=== PATIENT | male | born 1955 | race Caucasian/White ===

== ENCOUNTER → 2018-05-24 08:05 | Outpatient (CLI) | payer BC, SELFPAY | PROVIDERS: PCP Family Medicine; Visit Provider Emergency Medicine | DX: R07.89 Other chest pain (principal) | CPT/HCPCS: 93017 ==

== ENCOUNTER 2018-05-31 08:56 | Day surgery (SDC) | payer BC, SELFPAY ==
[2018-05-31] VITALS (13 sets, daily range): BP systolic 116–168; BP diastolic 69–91; PULSE 58–79; RESP 16–18; TEMP 36.5; O2SAT 92–94; BMI 23.0; BMI 66.0
--- NOTE | 2018-05-31 07:10 | IR_ITS ---
CARDIAC CATHETERIZATION DATE OF CATHETERIZATION:05/31/2018 11:47 AM PROCEDURES: 1. Left heart catheterization 2. Left ventriculogram 3. Selective coronary angiogram INDICATION FOR TEST: 1. Angina pectoris 2. Coronary artery disease 3. Abnormal stress test Informed consent was obtained prior to the procedure. COMPLICATIONS: None ESTIMATED BLOOD LOSS: Less than 10 ml. TECHNIQUE: One percent lidocaine used to anesthetize the right anterior aspect of the wrist. The right radial artery was accessed via the Seldinger technique. A 6 Vietnamese sheath was placed in the right radial artery. 2.5 mg of verapamil, 800 mcg of nitroglycerin, 1mg Lidocaine and 5000 U Heparin were given through the arterial sheath. The trap catheter was also used to perform left heart catheterization, left ventriculogram and selective coronary angiogram. At the end of the procedure the sheath was removed good hemostasis was achieved using Traclet band, patient was transferred to the postop holding area in stable condition . ANGIOGRAPHIC RESULTS: 1. The left main artery normal 2. The left anterior descending artery has a proximal concentric 70-80% stenosis which involves a moderate sized first diagonal artery with an ostial 80-90% stenosis in the first diagonal artery. The remaining LAD is normal 3. The circumflex artery is nondominant with mild luminal irregularities 4. The right coronary artery is a large dominant vessel and has proximal 10% stenoses with mid vessel mild to moderate vascular ectatic lesions and distal mild vascular ectasia. No stenosis within the right coronary artery is greater than 10% 5. The ROSEN ventriculogram reveals normal 65% 6. The left ventricular end-diastolic pressure 10 mmHg IMPRESSION: 1. Severe proximal LAD disease involving a moderate sized first diagonal artery 2. Mild to moderate vascular ectasia involving the dominant right coronary artery which is clinically insignificant 3. Normal ejection fraction 4. Normal left ventricular end-diastolic pressure PLAN: 1. Continue medical management beta blockers margarita inhibitors high intensity statin plus aspirin therapy 2. I recommend patient be evaluated for bypass surgery specifically CASTRO graft to the diagonal artery and the LAD. I believe this will give the patient the longest and best satisfaction and alleviation from angina pectoris. Although the vessel could be stented I would still recommend bypass surgery and less patient refuses bypass surgery and at that time we can discuss a bifurcating stent 3. Risk factor modification
[2018-05-31 09:34] LABS: Basophils % 0.8 % (0.1-2.0); Eosinophils % 0.9 % (0.1-12.0); Hematocrit 41.1 % (42.0-52.0); Hemoglobin 15.1 g/dL (14.1-18.0); Lymphocytes # 0.9 K/mm3 (0.7-4.5); Lymphocytes % 19.7 % (10-50); Mean Corpuscular HGB Conc 36.8 g/dL (31.8-35.4); Mean Corpuscular Hemoglobin 33.1 pg (27.0-31.2); Mean Platelet Volume 7.5 fl (7.4-10.4); Monocytes # 0.3 K/mm3 (0.1-1.0); Monocytes % 6.2 % (1.7-9.3); Neutrophils # 3.2 K/mm3 (1.8-7.8); Neutrophils % 72.4 % (37.0-80.0); Platelet Count 153 K/mm3 (142-424); Red Blood Count 4.56 M/mm3 (4.60-6.20); Red Cell Distribution Width 13.1 % (11.5-17.5); White Blood Count 4.4 K/mm3 (4.8-10.8)
[2018-05-31 09:45] LABS: Anion Gap 14.2 mEq/L (5-15); Blood Urea Nitrogen 14 mg/dL (7-18); Calcium 8.8 mg/dL (8.5-10.1); Carbon Dioxide 26 mmol/L (21.0-32.0); Chloride 105 mmol/L (98-107); Creatinine Clearance Estimated 93 mL/min (50-200); Creatinine,Serum 0.95 mg/dL (0.70-1.30); Estimated Glomerular Filt Rate 81 ml/min (>60); GFR (African American) 98 ML/MIN (>60); Glucose 126 mg/dL (74-106); Potassium 4.2 mmoL/L (3.5-5.1); Sodium 141 mmol/L (136-145)
== END 2018-05-31 14:39 | disposition home or self-care (01) ==
PROVIDERS: PCP Family Medicine; Visit Provider Internal Medicine
DX: R94.39 Abnormal result of other cardiovascular function study (principal); I25.118 Atherosclerotic heart disease of native coronary artery with other forms of angina pectoris; I10 Essential (primary) hypertension; Z79.899 Other long term (current) drug therapy; Z82.49 Family history of ischemic heart disease and other diseases of the circulatory system
CPT/HCPCS: 80048; 85025; 93458; 99152; C1725; C1760; C1769; J1644; Q9967

== ENCOUNTER → 2018-07-03 10:00 | Outpatient (CLI) | payer BC, SELFPAY | PROVIDERS: PCP Family Medicine; Visit Provider Emergency Medicine | DX: G47.33 Obstructive sleep apnea (adult) (pediatric) (principal) | CPT/HCPCS: 95806 ==

== ENCOUNTER → 2018-10-01 14:08 | Outpatient (CLI) | payer BC, SELFPAY ==
--- NOTE | 2018-10-01 14:12 | XR_ITS ---
PROCEDURE: XR MULTIPLE SPINE 6+V CLINICAL INDICATION: MANOLO ARM PAIN Neck pain, thoracic pain, bilateral arm pain COMPARISON: No exams were available for comparison FINDINGS: C-spine: Degenerate disc disease C5-C6 and C6-C7 with normal alignment. Facet arthritic changes C5, C6, and C7. Foraminal narrowing is present on the right at C6-C7 and on the left at C5-C6. Thoracic spine: Normal alignment. Mild degenerative changes mid lower thoracic spine. No fracture or dislocation. No lytic or blastic changes of the spine. IMPRESSION: Cervical and thoracic spondylosis as detailed above Dictated by: Froilan Panda MD 10/01/2018 15:03 Signed by: <Electronically signed by Froilan Panda MD in [place]> 10/01/2018 15:03
== END ==
PROVIDERS: PCP Family Medicine; Visit Provider Family Medicine
DX: M79.602 Pain in left arm (principal); M79.601 Pain in right arm
CPT/HCPCS: 72084

== ENCOUNTER → 2018-10-08 07:22 | Outpatient (CLI) | payer BC, SELFPAY ==
--- NOTE | 2018-10-08 | CA_ITS ---
APPROVED REPORT Exam: Exercise Treadmill Technologist: Erin Downey, Ht: 6 ft 1 in Wt: 221 lbs BSA: 2.24 m2 HR: 48 bpm BP: 157/88 mmHg Rhythm: Bradycardia Indications: Shortness of Breath Medical History Medications: Lisinopril,,,,, Aspirin,,,,, Metoprolol,,,,, Vitamins,,,,, Lipitor,,,,, Stress Test Details Test: Ovidio HR Resting HR: 53 bpm Max Heart Rate (APMHR): 159 bpm Max HR Achieved: 134 bpm Target HR (85% APMHR): 135 bpm % of APMHR: 84 Recovery HR: 73 bpm BP Resting BP: 157/88 mmHg Max BP: 196/87 mmHg Recovery BP: 157.0/82.0 mmHg ECG Clinical Exercise duration: 10:13 min Highest Stage Achieved: Exercise capacity: 12.8 METs Stress ECG Conclusion Ovidio Protocol completed. Exercised: 10:13 Mets: 12.8 Stopped due to leg fatigue and shortness of breath. Symptoms: No chest pain. Positive for leg fatigue and shortness of breath at peak exercise. Respolved in recovery. Arrhythmias/Ectopy: Occasional PVC. One Couplet at peak exercise. ST-T Changes: Greater than 1.5mm ST Depression Conclusion: Images to follow. Test Summary RECOVERY 03:00 0.0 0.0 78 . 180/ 94 . . Stage 1 01:00 10.0 1.7 84 . . . . Stage 1 02:00 10.0 1.7 87 . . . . Stage 1 03:00 10.0 1.7 87 . 150/ 86 . . Stage 2 01:00 12.0 2.5 97 . . . . Stage 2 02:00 12.0 2.5 101 . . . . Stage 2 03:00 12.0 2.5 103 . 160/ 90 . . Stage 3 01:00 14.0 3.4 110 . . . . Stage 3 02:00 14.0 3.4 116 . . . . Stage 3 03:00 14.0 3.4 120 . . . . Stage 4 01:00 16.0 4.2 129 . . . . Stage 4 01:13 16.0 4.2 132 . . . Stop exercise at 10:13 RECOVERY 01:00 0.0 0.0 116 . 180/ 94 . . RECOVERY 02:00 0.0 0.0 91 . 180/ 94 . . RECOVERY 03:00 0.0 0.0 78 . 180/ 94 . . RECOVERY 04:00 0.0 0.0 73 . 196/ 87 . . RECOVERY 05:00 0.0 0.0 71 . 167/ 84 . . RECOVERY 06:00 0.0 0.0 70 . 167/ 84 . . RECOVERY 06:51 0.0 0.0 74 . 157/ 82 . . Electronically signed by : Jacob Mathew, 10/10/2018 11:40:25
--- NOTE | 2018-10-08 07:24 | NM_ITS ---
APPROVED REPORT Exam: Nuclear Stress Test Indication: Chest pain, SOB, CAD, CABG, HTN, Family hx Patient Location: Outpatient Stress Tech: Erin Downey [place] Tech:Natalie Lacey, ARRT, RT (R)(N) Ht: 6 ft 1 in Wt: 224 lbs BSA: 2.26 m2 HR: 48 bpm BP: 157/88 mmHg BMI: 29.5 History: Chest pain, SOB, CAD, CABG, HTN, Family hx Procedure: Patient exercised on Ovidio protocol 10 minutes and sec, resting heart rate 48 bpm, resting blood pressure 157/88 mmHg, with exercise maximum heart rate achived was 134 bpm which is 84 % of the maximum predicted heart rate and blood pressure was 196/87. bpm. Test was stopped due to leg fatigue and SOB. Patient denied any complaint of chest pain. Patient has Good exercise capacity, achieved 12.8 METs of workload on treadmill, the blood pressure response to exercise was Adequate.. Electrocardiogram Resting electrocardiogram showed sinus rhythm, with exercise there is frequent premature ventricular complex observed, [address] segment depression noted from the baseline EKG. The EKG portion of the exercise Myoview is positive for ischemia. Patient did not achieve the target heart rate. Cardiac Stress and Resting SPECT Images: Cardiac Stress and Resting SPECT images were obtained using technetium 99m Myoview 32 mCi stress and 10 mCi at rest. Gated SPECT with analysis of segmental wall motion and calculation of the ejection fraction also done. Cardiac stress and resting SPECT images showed reversible ischemia involving the anterolateral ,lateral and inferior lateral wall. Computer derived ejection fraction is 62% with no regional wall motion abnormality, right ventricle is normal size and contractility. Conclusion: 1. The EKG portion of the exercise Myoview is positive for ischemia, patient has good exercise capacity achieved 12.8 mets of workload on treadmill, the blood pressure response to exercise was adequate, there was no exercise-induced chest discomfort. Test was stopped due to shortness of breath. 2. Scintigraphic evidence of reversible ischemia involving the anterolateral, lateral and inferior lateral wall. Computer derived ejection fraction is 62% with no regional wall motion abnormality, right ventricle is normal size and contractility. 3. Abnormal exercise Myoview study. Electronically signed by : Emmanuel Moon, 10/18/2018 17:10:58
--- NOTE | 2018-10-08 07:32 | HMH.ITSHM ---
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 []LISINOPRIL METOPROLOL LIPITOR ASA VITAMINS
== END ==
PROVIDERS: PCP Family Medicine; Visit Provider Nurse Practitioner Family
DX: Z95.1 Presence of aortocoronary bypass graft (principal); E78.5 Hyperlipidemia, unspecified; I11.9 Hypertensive heart disease without heart failure; I20.9 Angina pectoris, unspecified
CPT/HCPCS: 78452; 93017; 93306; A9502

== ENCOUNTER → 2019-02-22 13:19 | Outpatient (CLI) | payer BC, SELFPAY ==
--- NOTE | 2019-02-22 13:21 | CA_ITS ---
APPROVED REPORT Information And Data Architect Analyst: ROSS Laterality: Bilateral Indications: arm numbness Doppler Spectral Velocity Analysis ECA (R) 120.00/16.30 cm/s ECA (L) 100.20/16.30 cm/s dICA (R) 63.60/23.90 cm/s dICA (L) 75.10/31.50 cm/s Ceci (R) 70.30/30.70 cm/s Ceci (L) 69.30/27.60 cm/s pICA (R) 75.60/23.90 cm/s pICA (L) 55.10/18.20 cm/s dCCA (R) 89.00/17.20 cm/s dCCA (L) 85.70/23.10 cm/s pCCA (R) 98.80/15.70 cm/s pCCA (L) 132.90/31.80 cm/s Vert (R) 37.70/16.30 cm/s Vert (L) 58.30/19.70 cm/s ICA/CCA 0.85 ICA/CCA 0.88 Findings Duplex evaluation demonstrates stenosis of the right proximal internal carotid artery <20% with PSV <140 cm/sec, EDV <100 cm/sec, and IC/CC Ratio <4.0.Duplex evaluation demonstrates stenosis of the left proximal internal carotid artery <20% with PSV <140 cm/sec, EDV <100 cm/sec, and IC/CC Ratio <4.0. Conclusion No increased velocities to suggest hemodynamically significant stenosis in either internal carotid artery. Electronically signed by : Froilan Panda MD 02/22/2019 15:44:44
== END ==
PROVIDERS: PCP Family Medicine; Visit Provider Urology
DX: R20.0 Anesthesia of skin (principal); E78.5 Hyperlipidemia, unspecified; I11.9 Hypertensive heart disease without heart failure; I25.10 Atherosclerotic heart disease of native coronary artery without angina pectoris
CPT/HCPCS: 93880

== ENCOUNTER → 2019-08-06 08:06 | Outpatient (CLI) | payer BC, SELFPAY ==
--- NOTE | 2019-08-06 08:11 | FL_ITS ---
PROCEDURE: FL UPPER GI W AIR CLINICAL INDICATION: GERD W/O ESOPHAGITIS COMPARISON: No exams were available for comparison TECHNIQUE: In the upright position the patient was observed to swallow barium in both the AP and lateral view. The cervical esophagus was examined under fluoroscopy with images obtained. The patient was then placed prone in the right anterior oblique position and was observed to swallow barium with Valsalva technique. Routine fluoroscopy of the stomach was performed. FLUOROSCOPY TIME: 1.3 minutes FINDINGS: There is no hiatal hernia or reflux.. There was normal peristalsis. No filling defects or mucosal abnormalities. No masses or strictures. IMPRESSION: Negative barium swallow and upper GI. Dictated by: Livan Tello 08/06/2019 10:17 Electronically signed by Livan Tello in [place] 08/06/2019 10:17
--- NOTE | 2019-08-06 08:11 | US_ITS ---
PROCEDURE: US ABDOMEN LIMITED CLINICAL INDICATION: GERD W/O ESOPHAGITIS COMPARISON: No exams were available for comparison FINDINGS: PANCREAS: Unremarkable. No obvious mass or abnormal fluid collection. No ductal dilatation LIVER: Slightly increased overall echogenicity suggesting mild diffuse fatty infiltration. There are no focal lesions. The portal vein is normal in caliber and there is appropriate directional flow within the portal vein. RIGHT KIDNEY: The right kidney measures 11.5 x 5.7 by 8.7 cm and appears sonographically normal. GALLBLADDER: The gallbladder is normal in size and contains a large amount of echogenic biliary sludge along with tiny calcified and or partially calcified gallstones. The gallbladder wall is normal thickness. The common bile duct is normal in caliber. IMPRESSION: Large amount of biliary sludge and numerous tiny calcified gallstones along with mild or borderline hepatic steatosis Dictated by: Dr. Radu Rice MD 08/06/2019 09:[address] Radu Rice MD in [place] 08/06/2019 09:48
== END ==
PROVIDERS: PCP Family Medicine; Visit Provider Family Medicine
DX: K21.9 Gastro-esophageal reflux disease without esophagitis (principal)
CPT/HCPCS: 74246; 76705

== ENCOUNTER → 2019-08-29 08:01 | Outpatient (CLI) | payer BC, SELFPAY ==
[2019-08-29 08:31] LABS: Basophils % 0.5 % (0.1-2.0); Eosinophils # 0.1 K/mm3 (0.0-0.4); Eosinophils % 2.1 % (0.1-12.0); Hematocrit 41.6 % (42.0-52.0); Hemoglobin 14.5 g/dL (14.1-18.0); Lymphocytes # 1.1 K/mm3 (0.7-4.5); Lymphocytes % 19.6 % (10-50); Mean Corpuscular HGB Conc 34.8 g/dL (31.8-35.4); Mean Corpuscular Hemoglobin 33.8 pg (27.0-31.2); Mean Corpuscular Volume 97.1 fl (80-94); Mean Platelet Volume 7.9 fl (7.4-10.4); Monocytes # 0.4 K/mm3 (0.1-1.0); Monocytes % 7.8 % (1.7-9.3); Neutrophils # 3.8 K/mm3 (1.8-7.8); Neutrophils % 69.9 % (37.0-80.0); Platelet Count 143 K/mm3 (142-424); Red Blood Count 4.28 M/mm3 (4.60-6.20); Red Cell Distribution Width 13.5 % (11.5-17.5); White Blood Count 5.4 K/mm3 (4.8-10.8)
[2019-08-29 08:51] LABS: Alanine Aminotransferase 36 U/L (12-78); Albumin Level 4.2 g/dl (3.5-5.0); Albumin/Globulin Ratio 1.9 (1.1-1.8); Alkaline Phosphatase 99 U/L (38-126); Anion Gap 11.1 mEq/L (5-15); Aspartate Amino Transferase 33 U/L (17-59); Bilirubin,Total 1.1 mg/dl (0.2-1.3); Blood Urea Nitrogen 23 mg/dl (9-20); Calcium 9.1 mg/dl (8.4-10.2); Carbon Dioxide 28 mmol/L (22.0-30.0); Chloride 103 mmol/L (98-107); Estimated Glomerular Filt Rate 86 ml/min (>60); GFR (African American) 104 ML/MIN (>60); Globulin 2.2 g/dL (1.3-3.2); Glucose 110 mg/dl (74-100); Potassium 4.1 mmoL/L (3.5-5.1); Sodium 138 mmol/L (136-145); Total Protein,Serum 6.4 g/dl (6.3-8.2)
[2019-08-29 09:23] LABS: Coronavirus 19 IgG Antibody Negative (Negative); Coronavirus 19 IgM Antibody Negative (Negative)
== END ==
PROVIDERS: Visit Provider Surgery
DX: Z01.818 Encounter for other preprocedural examination (principal); R10.11 Right upper quadrant pain
CPT/HCPCS: 36415; 80053; 85025; 86328

== ENCOUNTER 2019-08-30 06:08 | Day surgery (SDC) | payer BC, SELFPAY ==
[2019-08-30] VITALS (13 sets, daily range): BP systolic 108–147; BP diastolic 60–78; PULSE 52–69; RESP 18–20; TEMP 36.2–36.7; O2SAT 92–100; BMI 29.2
--- NOTE | 2019-08-30 07:05 | P.PN_ITS ---
[facility] Anesthesia Checklist - Patient Identification Patient Identification: Arm Band, Verbal (Name & ) - Structural Data Admitted From: Home Planned Operative Procedure/s: choly Consent for Planned Operative Procedure(s) Verified: Yes Verified Documents: History and Physical - NPO Status Verified Time NPO: 00:00 - Chart Verification Results Verified: CBC, BMP - Additional verifications Patient : No Anesthesia Reactions: No Hx Blood Transfusions: No Blood Transfusion Reaction: No Cephalosporin Allergy: No Previous Colonoscopy: No - Cardiovascular Assessment Heart Sounds: S1 & S2 Pulse Strength: Baseline Pulse Rhythm: Regular Peripheral Edema: No - Airway Assessment C-Spine Mobility Assessed: Yes TMJ Mobility Assessed: Yes Dentition: Good Dentition - Neurological Assessment Level of Consciousness: Awake, Alert, Appropriate Hx Seizures: No Numbness or tingling in extremities: No - Anesthesia Plan Anesthesia Risk discussed: Yes Anesthesia Plan: Verified ASA Class: III Anesthesia Type: General [facility] History I have reviewed the patient's past medical history: Yes Medical History: Reports:: Coronary Artery Disease, Hyperlipidemia, Hypertension, Kidney Stones Denies:: Cancer, Diabetes Mellitus Type 1, Diabetes Mellitus Type 2, Internal Pacemaker, MRSA, Seizures *Have you ever received a pneumonia vaccine?: No *Have you received a flu vaccine this season?: No Other Medical History: Denies: Blood Transfusion Reaction Anesthesia experience/problems:: none Other Surgeries: Yes: CABG, Colonoscopy, Hernia Repair. No: Pacemaker Amputation: No Fractures: No - *Social History Last grade of school completed: High school graduate Smoking Status: Never smoker Tobacco Type: smokeless tobacco Alcohol Intake: never Substance Use Type: denies use *Occupational Status:: employed Housing: house Household Members: spouse *Travel in the last 8 weeks: None Family Hx:: Coronary Artery Disease, Hypertension
--- NOTE | 2019-08-30 08:20 | ECG_ITS ---
APPROVED REPORT Exam: Resting ECG HR:66 bpm ECG Measurements Heart Rate 66 AXES IA 214 P 18 QRSd 90 QRS 75 QT 410 T 22 QTc 429 <Conclusion> Sinus rhythm with 1st degree AV block Possible Inferior infarct, age undetermined Cannot rule out Anterior infarct, age undetermined Abnormal ECG Electronically signed by : Wilfredo Paulino, 08/30/2019 17:01:09
--- NOTE | 2019-08-30 08:22 | HMH.OPNOTE ---
Date of procedure: 08/30/19 Pre-op Diagnosis:: Symptomatic cholelithiasis Post-op Diagnosis:: Chronic calculus cholecystitis Procedure performed:: Laparoscopic cholecystectomy Surgeon:: Luis Patton MD FLEET OPERATIONS MANAGER:: Wilfredo Noble Anesthesia: GETA Estimated blood loss (mL): 15 Operative findings:: Mild to moderate distention Mild to moderate pericholecystic fat stranding Infundibular thickening Operative note:: After informed consent was obtained, the patient was taken to the operating room and placed in the supine position. General anesthesia was induced and the abdomen was prepped and draped in a sterile fashion. After infiltration with local anesthetic an infraumbilical incision was made. A Veress needle was placed in position. The abdomen was insufflated. A 5 mm optical trocar was placed in position. Under direct visualization, a 12 mm trocar was placed in the subxiphoid position and 2 additional 5 mm trocars were placed in the right upper quadrant. The gallbladder was elevated up and over the liver margin. The tissue around the cystic duct was carefully dissected. 3 clips were placed proximally and the duct was transected with harmonic mateo. Harmonic mateo were then utilized to dissect the gallbladder away from the liver margin with careful attention to the control of the cystic artery. The gallbladder was placed in a retrieval bag and removed through the subxiphoid trocar site. The right upper quadrant was thoroughly irrigated. No active bleeding or bile leak was noted. Fascia at the subxiphoid trocar site was reapproximated utilizing 0 Ethibond. The remaining trocars were removed. All wounds were irrigated and skin was closed with 4-0 Monocryl in a simple interrupted fashion (to facilitate hemostasis). Steri-Strips were applied. The patient's anesthetic agents were reversed and extubation was completed prior to transfer to recovery in stable condition. Condition: stable Disposition: PACU Specimens:: Gallbladder and contents Complications:: No immediate
--- NOTE | 2019-08-30 08:36 | HMH.ANESI ---
[facility] Anesthesia Record Part I Intake, IV Amount: 750 Estimated blood loss (mL): 10 Urine output (mL): 0 Blood Products used (#): none Blood Pressure: 114/71 SaO2: 93 Pulse Rate: 69 Respiratory Rate: 20 Temperature: 98.0 F Patient is:: Awake, Stable Stable to PACU at:: 08:33
--- NOTE | 2019-08-30 08:58 | SUR.PHASEI ---
0833- received into Pacu- placed on monitor. report from Cornelio westfall and Wade LUCIA. 0838- Resp at bedside- 12 lead EKG obtained per ranes order. 0845- Dr Patton at bedside talking with pt. Pt has pain #1 (1-10) scale. Pt has 5 Telfa/tegaderm dsg to abd with tonsil sponge on all. All CDI.
--- NOTE | 2019-08-30 09:34 | SUR.PHASEII ---
JAYDON RAINEY MANAGER NON PROFIT FROM DR MCCONNELL'S OFFICE AT BEDSIDE FOR CONSULT.
--- NOTE | 2019-08-30 09:52 | SUR.PHASEII ---
JAYDON RAINEY TREASURY SPECIALIST AT BEDSIDE SPEAKING WITH PT. ORDERS RECEIVED PT TO WEAR EVENT MONITOR FOR 2 WEEKS AND FOLLOW UP IN DR MCCONNELL'S OFFICE IN 2 WEEKS. R/V.
--- NOTE | 2019-08-30 10:25 | HMH.ANESII ---
[facility] Anesthesia Record Part II Discharge Time: 09:03 Destination: Surgical Day Care (OP Surgery) PACU nurse assessment reviewed?: Yes Patient Condition:: Good Anesthesia Complications:: None Swallowing reflex intact?: Yes Cyanosis?: No Blood Pressure: 114/71 Pulse Rate: 69 Temperature: 97.6 F Mental Status: Alert & Oriented Pain level:: 0 Nausea and/or vomitting:: None Intake, IV Amount: 25
--- NOTE | 2019-08-30 10:38 | SUR.PHASEII ---
PT D/C HOME. PT TO GO TO RESPIRATORY FOR EVENT MONITOR. RESP AWARE AND AT BEDSIDE.
--- NOTE | 2019-08-30 14:56 | HMH.CNCARD ---
History of Present Illness Consult date: 08/30/19 Requesting physician: Luis Patton Consult reason: post-op evaluation Chief complaint: Cardiac dysrhythmia Additional Medical History:: 1. Post -op cardiac dysrhythmia. (08/30/2019) a. Possible 3rd degree heart block. b. Anethesia for gallbladder surgery. 2. Coronary artery disease. a. Last cath (2019) chronically occluded promixal LAD: medical management 3. CABG (2019). 4. Hypertensive heart disease without heart failure. 5. Mixed Hyperlipidemia. a. Statin therapy. 6. Essential Hypertension History of present illness: 63 year old causcasion male underwent Cholecystectomy this am. While receiving sedation, cardiac dysrhythmia was noted on electronic device monitor. Cardiac dysrhythmia noted as possible 3rd degree heart block for 5 minutes. Pt does not have history of heart block. Pt is awaked and oriented x3 during this assessment. Denies chest pain, tightness or pressure. Denies shortness of breath. Denies palpitations or dizziness. Pt does have history of CAD and CABG x2 vessels in 2019. Pt stated he had been doing well. Last cath revealed (2019) chronically occluded LAD. Last echo (2019) EF 55% with no regional wall abnormality. Pt was last seen in the cardiology office on 07/23/2019 and had been doing well. ECG in post op revealed sinus rhythm with heart rate of 66bpm. Discussed plan of care with Dr. MATTHEW. Recommend 2 week holter monitor to determine cardiac dysrhythmia. Anesthesia may have produced arrthythmia. Instructed pt to follow up in the cardiac clinic in one week or sooner if symptoms develop/persist. Pt verbalized understanding. Will obtain echocardiogram at that time. Thank you for allowing us to participate in the care of this pt. [facility] History Medical History: Reports:: Coronary Artery Disease, Hyperlipidemia, Hypertension, Kidney Stones Denies:: Cancer, Diabetes Mellitus Type 1, Diabetes Mellitus Type 2, Internal Pacemaker, MRSA, Seizures *Have you ever received a pneumonia vaccine?: No *Have you received a flu vaccine this season?: No Other Medical History: Denies: Blood Transfusion Reaction Anesthesia experience/problems:: none Other Surgeries: Yes: CABG, Colonoscopy, Hernia Repair. No: Pacemaker Amputation: No Fractures: No - *Social History Last grade of school completed: High school graduate Smoking Status: Never smoker Tobacco Type: smokeless tobacco Alcohol Intake: never Substance Use Type: denies use *Occupational Status:: employed Housing: house Household Members: spouse *Travel in the last 8 weeks: None Family Hx:: Coronary Artery Disease, Hypertension Meds Home Medications Medication Instructions Recorded Confirmed Type aspirin 81 mg tablet,delayed 81 mg PO DAILY 05/30/18 08/30/19 History release cholecalciferol (vitamin D3) 25 1,000 unit PO DAILY 08/06/18 08/30/19 History mcg (1,000 unit) capsule omega-3 fatty acids 1,000 mg 1,000 mg PO DAILY 08/06/18 08/30/19 History capsule vitamin B complex 1 tab PO DAILY 08/06/18 08/30/19 History omeprazole 20 mg capsule,delayed 20 mg PO BID 09/26/18 08/30/19 History release Atorvastatin Calcium [Lipitor 80mg 80 mg PO QHS 08/27/19 08/30/19 History Tablet] Metoprolol Tartrate [Lopressor 37.5 mg PO BID 08/27/19 08/30/19 History 25mg tablet] Multivitamin [Multivitamins] 1 each PO DAILY 08/27/19 08/30/19 History Vit A/Vit C/Vit E/Zinc/Copper 1 each PO BID 08/27/19 08/30/19 History [Preservision Areds Softgel] lisinopriL [Prinivil 10mg Tablet] 10 mg PO DAILY 08/27/19 08/30/19 History Hydrocod/Acet 5/325 mg [[place] 1 - 2 tab PO Q6HP PRN #17 tab 08/30/19 Rx 5/325mg tablet] Allergies Allergy/AdvReac Type Severity Reaction Status Date / Time No Known Allergies Allergy Verified 08/30/19 06:22 Review of Systems - Review of Systems Review of systems:: pertinent systems reviewed and negative unless documented below - Constitutional Reports fatigue
== END 2019-08-30 10:38 | disposition home or self-care (01) ==
LOC: OR 06:10
PROVIDERS: PCP Family Medicine; Visit Provider Surgery
PROC: 0FT44ZZ Resection of Gallbladder, Percutaneous Endoscopic Approach (ICD-10-PCS; CPT 47562; principal; 2019-08-30 07:30)
DX: K80.10 Calculus of gallbladder with chronic cholecystitis without obstruction; I25.10 Atherosclerotic heart disease of native coronary artery without angina pectoris; E78.5 Hyperlipidemia, unspecified; I10 Essential (primary) hypertension; Z87.442 Personal history of urinary calculi; Z82.49 Family history of ischemic heart disease and other diseases of the circulatory system; Z79.899 Other long term (current) drug therapy; Z79.82 Long term (current) use of aspirin
CPT/HCPCS: 47562; 93005; 93270; 96374; J2405; J2710

== ENCOUNTER → 2020-02-13 13:17 | Outpatient (CLI) | payer BC, SELFPAY ==
--- NOTE | 2020-02-13 | CA_ITS ---
APPROVED REPORT EXAM: Comprehensive 2D, Doppler, and color-flow Echocardiogram Crimping Press Operator: Kelsey Gaffney RT(R) Ht: 6 ft 1 in Wt: 218lbs BSA: 2.23 BP: 154/84 mmHg Indications: CP, HTN, hyperlipidemia, family history of HD, CABG, arrhythmia, vertigo, CAD 2D Dimensions LVOT 2.30 cm (M/F) 1.5-2.5 M-Mode Dimensions RVDd 3.31 cm (0.9-2.6) LA Diam 4.84 cm (1.9-4.0) LVDd 5.57 cm (3.5-5.7) Ao Diam 3.19 cm (2.0-3.7) LVDs 3.59 cm (3.5-5.7) IVSd 1.05 cm (0.6-1.1) PWd 1.13 cm (0.6-1.1) EF (Teich) 64.40% FS 35.50% EDV (Teich) 151.80 mL ESV (Teich) 54.10 mL LV Diastology E Decel Time 183.00 (160-240 msec) E/A Ratio 0.8 MED E' 4.90 (< 7 cm/sec) E'/MED E' Ratio 13.20 (>14) LAT E' 9.20 (<10 cm/sec) E/LAT E' Ratio 7.03 (>14) Mitral Valve MV E Max [place]. 65.00 (40-130 cm/s) MV A Velocity 81.00 (40-130 cm/s) E/A Ratio 0.80 MV Decel. Time 183.00 (160-240 ms) MV PHT 54.00 ms Tricuspid Valve TR P. Velocity 260.00 cm/s RAP Estimate 15.00 mmHg RVSP 42.00 mmHg Left Ventricle Left atrium is mildly enlarged, left ventricle is normal size, mild concentric left ventricular hypertrophy, visually estimated ejection fraction 55% with no regional wall motion abnormality, diastolic parameters are inconclusive. Right Ventricle Right atrium and right ventricle are mildly enlarged with normal contractility. Aortic Valve Aortic valve is minimally thickened and fibrosed. There is no aortic stenosis or aortic insufficiency. Mitral Valve Mitral valve leaflets are minimally thickened, there is no mitral stenosis, there is mild mitral regurgitation. Tricuspid Valve Tricuspid valve is grossly normal, there is mild tricuspid regurgitation. Calculated right ventricular systolic pressure is 42 mmHg. Pulmonic Valve Pulmonic valve is poorly visualized. Great Vessels Aortic root is normal size. Pericardium No significant pericardial effusion noted. Conclusion 1. Mild biatrial enlargement, normal left ventricular size, mild concentric left ventricular hypertrophy, visually estimated ejection fraction 55% with no regional wall motion abnormality, diastolic parameters are inconclusive. 2. Mildly enlarged right ventricle with normal contractility. 3. Mild mitral and tricuspid regurgitation, calculated right ventricular systolic pressure is 42 mmHg. 4. No significant pericardial effusion noted. Electronically signed by : Emmanuel Moon, 02/14/2020 12:14:17
== END ==
PROVIDERS: PCP Family Medicine; Visit Provider Family Medicine
DX: I25.810 Atherosclerosis of coronary artery bypass graft(s) without angina pectoris (principal)
CPT/HCPCS: 93306

== ENCOUNTER → 2020-06-29 11:11 | Outpatient (CLI) | payer BC, SELFPAY | PROVIDERS: PCP Family Medicine; Visit Provider Family Medicine | DX: R26.89 Other abnormalities of gait and mobility (principal) | CPT/HCPCS: 93225; 93226 ==

== ENCOUNTER → 2020-08-18 07:44 | Outpatient (CLI) | payer BC, SELFPAY ==
--- NOTE | 2020-08-18 07:45 | CA_ITS ---
APPROVED REPORT Exam: Exercise Treadmill Technologist: Uyen Aldana, Ht: 6 ft 1 in Wt: 211 lbs BSA: 2.20 m2 HR: 56 bpm BP: 156/89 mmHg Rhythm: SINUS BRADYCARDIA,LPFB,SLOW R WAVE PROGRESSION Medical History Medical History: HTN, Hyperlipidemia Medications: Lisinopril,,,,, Omeprazole,,,,, Aspirin,,,,, Vitamin D3,,,,, Toprol XL,,,,, AtorvaASTATIN,,,,, Allergies: No known drug allergies Cardiac Risk Factors: HTN, Hyperlipidemia Stress Test Details Test: Ovidio HR Resting HR: 66 bpm Max Heart Rate (APMHR): 158.994472 bpm Max HR Achieved: 137 bpm Target HR (85% APMHR): 134.114342 bpm % of APMHR: 86.71 Recovery HR: 100 bpm BP Resting BP: 168.0/87.0 mmHg Max BP: 215.0/85.0 mmHg Recovery BP: 215.0/85.0 mmHg ECG Resting ECG: SINUS BRADYCARDIA,LPFB,SLOW R WAVE PROGRESSION Clinical Exercise duration: 12:01 min Highest Stage Achieved: Exercise capacity: 12.8 METs Stress ECG Conclusion EXERCISED 12:00 ON OVIDIO PROTOCOL. MAX HR 135 BPM WHICH IS 85% OF PM FOR AGE. MAX BP 215/85. METS = 12.8. TEST STOPPED DUE TO SOA,HR ACHIEVED. NO CP. RARE PVC. T WAVE INVERSION WITH 1-[address] DEPRESSION IN LEADS III AND aVF. ABNORMAL EKG CHANGES IN INFERIOR LEADS. NO CP WITH EXCELLENT EXERCISE TOLERANCE. GXT ONLY (NO IMAGING) Test Summary REST . . . . . . . Sitting REST . . . . . . . Standing REST 05:11 0.0 0.0 66 . 168/ 87 . . Stage 1 01:00 10.0 1.7 81 . . . . Stage 1 02:00 10.0 1.7 90 . . . . Stage 1 03:00 10.0 1.7 81 . 176/ 80 . . Stage 2 01:00 12.0 2.5 100 . . . . Stage 2 02:00 12.0 2.5 106 . . . . Stage 2 03:00 12.0 2.5 104 . 190/ 80 . . Stage 3 01:00 14.0 3.4 113 . . . . Stage 3 02:00 14.0 3.4 117 . . . . Stage 3 03:00 14.0 3.4 118 . 214/ 78 . . Stage 4 01:00 16.0 4.2 127 . . . . Stage 4 02:00 16.0 4.2 133 . . . . Stage 4 03:00 16.0 4.2 134 . . . . Stage 5 00:01 18.0 5.0 134 . . . Stop exercise at 12:01 RECOVERY 01:00 0.0 0.0 100 . . . . RECOVERY 02:00 0.0 0.0 81 . 215/ 85 . . RECOVERY 03:00 0.0 0.0 76 . 164/ 78 . . RECOVERY 04:00 0.0 0.0 72 . 164/ 78 . . RECOVERY 05:00 0.0 0.0 69 . 139/ 78 . . RECOVERY 06:00 0.0 0.0 71 . 139/ 78 . . RECOVERY 06:24 0.0 0.0 74 . 140/ 84 . . Electronically signed by : Jacob Mathew, 08/20/2020 09:20:14
== END ==
PROVIDERS: PCP Family Medicine; Visit Provider Internal Medicine Cardiovascular Disease
DX: R42 Dizziness and giddiness (principal); R94.31 Abnormal electrocardiogram [ECG] [EKG]
CPT/HCPCS: 93017

== ENCOUNTER → 2022-03-09 06:45 | Outpatient (CLI) | payer BC, SELFPAY ==
--- NOTE | 2022-03-09 06:47 | CA_ITS ---
APPROVED REPORT EXAM: Comprehensive 2D, Doppler, and color-flow Echocardiogram Tank Setter: Divya Quiles CRT Ht: 6 ft 1 in Wt: 220lbs BSA: 2.24 BP: 153/82 mmHg Indications: Chest Pain, Shortness of Breath, Hyperlipidemia, Hypertension/HDD, abn holter, cabg, gerd 2D Dimensions LVOT 2.25 cm (M/F) 1.5-2.5 LA Volume 53.30 mL LA Volume Index 23.20 mL/m2 (M/F) 16-34 M-Mode Dimensions RVDd 2.81 cm (0.9-2.6) LA Diam 4.80 cm (1.9-4.0) LVDd 5.43 cm (3.5-5.7) Ao Diam 4.36 cm (2.0-3.7) LVDs 3.44 cm (3.5-5.7) IVSd 1.66 cm (0.6-1.1) PWd 1.39 cm (0.6-1.1) EF (Teich) 65.90% FS 36.60% EDV (Teich) 143.10 mL ESV (Teich) 48.80 mL LV Diastology E Decel Time 227.00 (160-240 msec) E/A Ratio 0.67 MED E' 4.40 (< 7 cm/sec) MED A' 7.40 cm/s E'/MED E' Ratio 11.77 (>14) LAT E' 7.90 (<10 cm/sec) LAT A' 14.80 cm/s E/LAT E' Ratio 6.56 (>14) Aortic Valve AO Peak GR. 7.10 mmHg Mitral Valve MV A Velocity 78.00 (40-130 cm/s) E/A Ratio 0.67 MV Decel. Time 227.00 (160-240 ms) Pulmonary Valve PV Peak Velocity 193.00 (50-150 cm/s) Tricuspid Valve TR P. Velocity 305.00 cm/s RAP Estimate 10.00 mmHg RVSP 47.20 mmHg Left Ventricle Left atrium is mildly enlarged, left ventricle is normal size mild concentric left ventricular hypertrophy, estimated ejection fraction 50% with no obvious regional wall motion abnormality, grade 1 diastolic dysfunction seen without tissue Doppler evidence of atrial atrial pressure. Right Ventricle Right atrium and right ventricle are mildly enlarged with normal contractility. Aortic Valve Aortic valve is minimally thickened and fibrosed there is no aortic stenosis or aortic insufficiency. Mitral Valve Mitral valve is grossly normal, there is mild mitral regurgitation. Tricuspid Valve Tricuspid grossly normal, there is mild tricuspid regurgitation, calculated right ventricular systolic pressure 32 mmHg. Pulmonic Valve Pulmonic valve is poorly visualized. Great Vessels Aortic root is normal size. Inferior vena cava is normal size with normal inspiratory collapse. Pericardium No significant pericardial effusion noted. Conclusion 1. Mild biatrial enlargement, normal left ventricular size, mild concentric left ventricular hypertrophy, estimated ejection fraction 50% with no obvious regional wall motion abnormality, grade 1 diastolic dysfunction seen without tissue Doppler evidence of left atrial pressure. 2. Mildly enlarged right ventricle with normal contractility. 3. Mild mitral and tricuspid regurgitation. 4. No significant pericardial effusion noted. 5. Inferior vena cava is normal size with normal inspiratory collapse. Electronically signed by : Emmanuel Moon MD 03/10/2022 06:16:14
--- NOTE | 2022-03-09 06:47 | NM_ITS ---
APPROVED REPORT Exam: Nuclear Stress Test Indication: CAD, CABG, HTN, FM HX, C.P. Patient Location: Outpatient Stress Tech: Erin Downey NH Tech:STEPHEN Parra RT (R)(N)(M) Ht: 6 ft 1 in Wt: 210 lbs HR: 57 bpm BP: 139/77 mmHg BSA: 2.20 m2 TID: 1.17 BMI: 27.7 History: CAD, CABG, HTN, FM HX, C.P. Procedure: Patient received a 0.4 mg of intravenous Lexiscan, resting heart rate 57 bpm, resting blood pressure 139/77 mmHg, with Lexiscan maximum heart rate achived was 88 bpm which is Less than 85 % of the maximum predicted heart rate and blood pressure was 147/81 mmHg. With Lexiscan, patient denied any complaint of chest pain. Electrocardiogram Resting electrocardiogram shows sinus rhythm, with Lexiscan less than 1.[address] segment depression noted from the baseline EKG. The EKG portion of the Lexiscan is nondiagnostic. Cardiac Stress and Resting SPECT Images: Cardiac Stress and Resting SPECT images were obtained using technetium 99m Myoview 32.0 mCi stress and 10.01 mCi at rest. Gated SPECT analysis of segmental wall motion and calculation of the ejection fraction also done. Prone images were also obtained. Cardiac stress and resting SPECT images show reversible ischemia involving the posterolateral wall, computer derived ejection fraction is 45% with no regional wall motion abnormality, right ventricle is normal size and contractility. Conclusion: 1. The EKG portion of the Lexiscan is nondiagnostic. 2. Scintigraphic evidence of reversible ischemia involving the posterolateral wall, computer derived ejection fraction is 45% with no regional wall motion abnormality, right ventricle is normal size and contractility. 3. Abnormal Lexiscan Myoview study. Electronically signed by : Emmanuel Moon MD 03/10/2022 06:44:43
--- NOTE | 2022-03-09 06:47 | CA_ITS ---
APPROVED REPORT Exam: Pharmacologic Technologist: Erin Downey Ht: 6 ft 1 in Wt: 220 lbs BSA: 2.24 m2 HR: 57 bpm BP: 139/77 mmHg Indications: Chest pain Medical History Medications: Lisinopril,,,,, Omeprazole,,,,, Aspirin,,,,, Metoprolol,,,,, Vitamin D3,,,,, Atorvastatin,,,,, Vitamin B,,,,, OmeGA 3,,,,, Multivitamin,,,,, Fatty acids,,,,, Stress Test Details Test: LEXISCAN HR Resting HR: 59 bpm Max Heart Rate (APMHR): 156.636987 bpm Max HR Achieved: 90 bpm Target HR (85% APMHR): 132.217084 bpm % of APMHR: 57.69 Recovery HR: 65 bpm BP Resting BP: 139.0/77.0 mmHg Max BP: 165.0/72.0 mmHg Recovery BP: 127.0/73.0 mmHg ECG Resting ECG: Sinus bradycardia, rightward axis, early repolarization changes. Clinical Exercise duration: 04:00 min Highest Stage Achieved: Stress ECG Conclusion Symptoms: Leg heaviness, mild shortness of air. No chest pain. Arrhythmias/Ectopy: Rare PVC ST-T Changes: Approximately [address] depression in lead III. NS T wave changes in leads II, III, and lateral leads. Conclusion: Non-diagnostic Lexiscan stress. Myoview images reported separately. Test Summary REST . . . . . . . Resting REST 05:50 . . 59 . 139/ 77 . . Stage 1 . . . . . . . Myoview Injected Stage 1 01:00 . . 85 . . . . Stage 2 01:00 . . 81 . 147/ 81 . . Stage 3 01:00 . . 69 . . . . Stage 4 01:00 . . 67 . 155/ 74 . Stop exercise at 04:00 RECOVERY 01:00 . . 68 . 165/ 72 . . RECOVERY 02:00 . . 65 . 165/ 72 . . RECOVERY 03:00 . . 66 . 127/ 73 . . RECOVERY 03:14 . . 68 . 127/ 73 . . Electronically signed by : Emmanuel Moon MD 03/10/2022 06:35:36
--- NOTE | 2022-03-09 08:39 | HMH.ITSHM ---
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 [VITAMINS TAMSULOSIN OMEPRAZOLE OMEGA 3 METOPROLOL LISINOPRIL FAMODIDINE ATORVASTATIN ASA
== END ==
PROVIDERS: PCP Family Medicine; Visit Provider Physician Assistant
DX: R07.89 Other chest pain (principal); I25.10 Atherosclerotic heart disease of native coronary artery without angina pectoris; I11.9 Hypertensive heart disease without heart failure; E78.2 Mixed hyperlipidemia; Z95.1 Presence of aortocoronary bypass graft
CPT/HCPCS: 78452; 93017; 93306; A9502; J2785

== ENCOUNTER 2022-03-29 08:24 | Day surgery (SDC) | payer BC, SELFPAY ==
[2022-03-29] VITALS (20 sets, daily range): BP systolic 106–156; BP diastolic 66–83; PULSE 51–71; RESP 16–18; O2SAT 91–95; BMI 29.1
--- NOTE | 2022-03-29 07:11 | IR_ITS ---
APPROVED REPORT Patient Location: Outpatient Manager Validation: STEPHEN Ramirez RT (R) PROCEDURES Left heart catheterization Left ventriculogram Selective coronary angiogram Selective engage the left internal mammary artery with angiography Informed consent was obtained prior to the procedure. COMPLICATIONS None Estimated Blood Loss: Less than 10 mls TECHNIQUE One percent lidocaine used to anesthetize the right groin. The right femoral artery was accessed via the Seldinger technique and a 5 Maltese sheath was placed in the right femoral artery. A JL 4, JR4 catheter were used to perform left heart catheterization, left ventriculogram selective coronary angiography as well as left internal mammary artery. At the end of the procedure the patient was transferred to the postop holding area in stable condition for sheath removal. ANGIOGRAPHIC RESULTS The left main artery Normal The left anterior descending artery Proximally occluded The circumflex artery Large nondominant with mild 10% luminal regularities The right coronary artery Large dominant with proximal 10 to 20% luminal irregularities in the mid vessel 30% concentric stenosis The ROSEN ventriculogram reveals Dilated ventricle ejection fraction 50% The left ventricular end-diastolic pressure 10 mmHg CASTRO is widely patent and has a Y graft going to a small first diagonal artery which is widely patent whereas the CASTRO itself is widely patent to the mid LAD IMPRESSION Adequate coronary artery revascularization as described above Dilated ventricle with 50% ejection fraction Normal left ventricular end-diastolic pressure PLAN 1. Continue medical management Electronically signed by : Jacob Mathew MD 03/29/2022 10:39:27
[2022-03-29 09:27] LABS: Basophils # 0.1 K/mm3 (0-0.2); Basophils % 1.1 % (0.1-2.0); Eosinophils # 0.1 K/mm3 (0.0-0.4); Eosinophils % 2.3 % (0.1-12.0); Hematocrit 45.5 % (42.0-52.0); Hemoglobin 15.8 g/dL (14.1-18.0); Lymphocytes # 0.9 K/mm3 (0.7-4.5); Lymphocytes % 14.2 % (10-50); Mean Corpuscular HGB Conc 34.6 g/dL (31.8-35.4); Mean Corpuscular Hemoglobin 33.3 pg (27.0-31.2); Mean Corpuscular Volume 96.2 fl (80-94); Mean Platelet Volume 8.5 fl (7.4-10.4); Monocytes # 0.4 K/mm3 (0.1-1.0); Monocytes % 6.6 % (1.7-9.3); Neutrophils # 4.5 K/mm3 (1.8-7.8); Neutrophils % 75.7 % (37.0-80.0); Platelet Count 148 K/mm3 (142-424); Red Blood Count 4.73 M/mm3 (4.60-6.20); Red Cell Distribution Width 13.2 % (11.5-17.5); White Blood Count 5.9 K/mm3 (4.8-10.8)
[2022-03-29 09:55] LABS: Chloride 106 mmol/L (98-107); Potassium 4.2 mmoL/L (3.5-5.1); Sodium 140 mmol/L (136-145)
[2022-03-29 09:58] LABS: Anion Gap 11.2 mEq/L (5-15); Blood Urea Nitrogen 16 mg/dl (9-20); Carbon Dioxide 27 mmol/L (22.0-30.0); Creatinine Clearance Estimated 106 mL/min (50-200); Estimated Glomerular Filt Rate 85 ml/min (>60); GFR (African American) 103 ML/MIN (>60)
[2022-03-29 09:59] LABS: Calcium 8.9 mg/dl (8.4-10.2); Glucose 132 mg/dl (74-100)
== END 2022-03-29 14:00 | disposition home or self-care (01) ==
PROVIDERS: PCP Family Medicine; Visit Provider Internal Medicine
DX: I25.118 Atherosclerotic heart disease of native coronary artery with other forms of angina pectoris (principal); I11.9 Hypertensive heart disease without heart failure; E78.5 Hyperlipidemia, unspecified; Z95.1 Presence of aortocoronary bypass graft; Z79.899 Other long term (current) drug therapy
CPT/HCPCS: 80048; 85025; 93459; 99152; C1725; C1769; C1894; J1644; Q9967

== ENCOUNTER 2023-03-06 14:55 | Outpatient (CLI) | payer MEDICARE, SELFPAY ==
[2023-03-06 15:39] LABS: Basophils % 0.4 % (0.1-2.0); Eosinophils # 0.1 K/mm3 (0.0-0.4); Hematocrit 43.8 % (42.0-52.0); Hemoglobin 15.5 g/dL (14.1-18.0); Lymphocytes # 0.8 K/mm3 (0.7-4.5); Lymphocytes % 11.1 % (10-50); Mean Corpuscular HGB Conc 35.5 g/dL (31.8-35.4); Mean Corpuscular Hemoglobin 34.1 pg (27.0-31.2); Mean Platelet Volume 8.3 fl (7.4-10.4); Monocytes # 0.5 K/mm3 (0.1-1.0); Neutrophils # 6.1 K/mm3 (1.8-7.8); Neutrophils % 80.4 % (37.0-80.0); Platelet Count 151 K/mm3 (142-424); Red Blood Count 4.56 M/mm3 (4.60-6.20); Red Cell Distribution Width 13.9 % (11.5-17.5); White Blood Count 7.6 K/mm3 (4.8-10.8)
[2023-03-06 15:47] LABS: Activated Partial Thrombo Time 28.2 seconds (22.8-30.6); INR 1.13 (0.9-1.1); Prothrombin Time 12.1 seconds (10.1-12.5)
[2023-03-06 16:29] LABS: Alanine Aminotransferase 36 U/L (12-78); Albumin Level 4.5 g/dl (3.5-5.0); Alkaline Phosphatase 85 U/L (38-126); Anion Gap 10.3 mEq/L (5-15); Aspartate Amino Transferase 35 U/L (17-59); Bilirubin,Total 1.9 mg/dl (0.2-1.3); Blood Urea Nitrogen 15 mg/dl (9-20); Calcium 8.9 mg/dl (8.4-10.2); Carbon Dioxide 28 mmol/L (22.0-30.0); Chloride 103 mmol/L (98-107); Estimated Glomerular Filt Rate 75 ml/min (>60); GFR (African American) 91 ML/MIN (>60); Globulin 2.3 g/dL (1.3-3.2); Glucose 105 mg/dl (74-100); Potassium 4.3 mmoL/L (3.5-5.1); Sodium 137 mmol/L (136-145); Total Protein,Serum 6.8 g/dl (6.3-8.2); Uric Acid 5.2 mg/dl (3.5-8.5)
== END 2023-03-06 23:59 ==
LOC: LAB 14:57
PROVIDERS: PCP Family Medicine; Visit Provider Nurse Practitioner Family
DX: M25.561 Pain in right knee; M25.461 Effusion, right knee; R71.8 Other abnormality of red blood cells; Z79.82 Long term (current) use of aspirin; I25.10 Atherosclerotic heart disease of native coronary artery without angina pectoris; I11.9 Hypertensive heart disease without heart failure
CPT/HCPCS: 36415; 80053; 84550; 85025; 85610; 85730

== ENCOUNTER 2023-03-08 10:32 | Outpatient (CLI) | payer MEDICARE, SELFPAY ==
--- NOTE | 2023-03-08 10:37 | XR_ITS ---
FINAL REPORT CLINICAL HISTORY: RT KNEE EFFUSION FINDINGS: Right knee Three views were obtained. There is no acute fracture or dislocation. The joint spaces appear normal. No joint effusion is identified. There is prominent soft tissue swelling anterior to the patella measuring 1.8 cm. IMPRESSION: Prominent soft tissue swelling anterior to the patella. Reviewed, Interpreted and Dictated by Reginaldo Ogden MD Transcribed by Pinky Zacarias Authenticated and [facility]
== END 2023-03-08 23:59 ==
LOC: RAD 10:33
PROVIDERS: PCP Family Medicine; Visit Provider Physician Assistant
DX: M25.561 Pain in right knee (principal); M25.461 Effusion, right knee
CPT/HCPCS: 73562

== ENCOUNTER 2023-07-20 06:52 | Outpatient (CLI) | payer MEDICARE, SELFPAY ==
[2023-07-20 07:24] LABS: Basophils % 0.6 % (0.1-2.0); Eosinophils # 0.1 K/mm3 (0.0-0.4); Eosinophils % 1.4 % (0.1-12.0); Hematocrit 42.4 % (42.0-52.0); Hemoglobin 14.6 g/dL (14.1-18.0); Lymphocytes # 0.8 K/mm3 (0.7-4.5); Lymphocytes % 18.9 % (10-50); Mean Corpuscular HGB Conc 34.6 g/dL (31.8-35.4); Mean Corpuscular Hemoglobin 33.5 pg (27.0-31.2); Mean Platelet Volume 8.3 fl (7.4-10.4); Monocytes # 0.4 K/mm3 (0.1-1.0); Monocytes % 10.2 % (1.7-9.3); Neutrophils # 2.8 K/mm3 (1.8-7.8); Neutrophils % 68.9 % (37.0-80.0); Platelet Count 143 K/mm3 (142-424); Red Blood Count 4.37 M/mm3 (4.60-6.20); White Blood Count 4.1 K/mm3 (4.8-10.8)
[2023-07-20 08:15] LABS: Chloride 104 mmol/L (98-107); Potassium 4.1 mmoL/L (3.5-5.1); Sodium 137 mmol/L (136-145)
[2023-07-20 08:17] LABS: Alanine Aminotransferase 32 U/L (12-78); Alkaline Phosphatase 79 U/L (38-126); Aspartate Amino Transferase 33 U/L (17-59); Bilirubin,Total 2.1 mg/dl (0.2-1.3); Blood Urea Nitrogen 19 mg/dl (9-20); Estimated Glomerular Filt Rate 85 ml/min (>60); GFR (African American) 102 ML/MIN (>60)
[2023-07-20 08:18] LABS: Albumin Level 4.2 g/dl (3.5-5.0); Anion Gap 10.1 mEq/L (5-15); Calcium 9.4 mg/dl (8.4-10.2); Carbon Dioxide 27 mmol/L (22.0-30.0); Chol/HDL Ratio 2.6 (1-3.5); Cholesterol 78 mg/dl (140-200); Globulin 2.1 g/dL (1.3-3.2); Glucose 110 mg/dl (74-100); HDL Cholesterol 30 mg/dl (40-60); Total Protein,Serum 6.3 g/dl (6.3-8.2); Triglycerides 112 mg/dl (30-150); VLDL Cholesterol 22 mg/dL (0-40)
[2023-07-20 08:29] LABS: Direct LDL Cholesterol 45.62 mg/dL (100-129)
[2023-07-20 09:08] LABS: Hemoglobin A1C 4.7 % (4.0-6.0)
[2023-07-20 11:46] LABS: 25-OH Vitamin D, Total 36.8 ng/mL (30-100)
[2023-07-20 12:20] LABS: Vitamin B12 576 pg/mL (239-931)
== END 2023-07-20 23:59 | disposition home or self-care (01) ==
PROVIDERS: PCP Family Medicine; Visit Provider Physician Assistant
DX: E53.8 Deficiency of other specified B group vitamins (principal); R73.9 Hyperglycemia, unspecified; I10 Essential (primary) hypertension; E55.9 Vitamin D deficiency, unspecified; Z13.220 Encounter for screening for lipoid disorders; Z68.29 Body mass index [BMI] 29.0-29.9, adult
CPT/HCPCS: 36415; 80053; 80061; 82306; 82607; 83036; 85025

== ENCOUNTER 2024-07-19 14:09 | Outpatient (CLI) | payer MEDICARE, SELFPAY ==
--- OUTSIDE RECORDS SUMMARY | 2024-05-20 11:00 | XMS_ITS ---
Author Organization [facility] Address [address] [facility] [address] [place] [id number] Care Team Providers Care Bingo Floater Name Role Phone Wilbert Kim Primary Care Provider [phone] Allergies No Known Allergies REASON FOR VISIT Shingles vaccine and shoulder pain Medications Medication SIG (Take, Route, Frequency, Duration) Notes Start Date End Date Status Omeprazole 20 MG 1 cap(s) orally twice a day for 30 days Active Metoprolol Succinate ER 100 MG 1 tablet Orally Once a day for 90 days 05/20/2024 Active Tamsulosin HCl 0.4 MG Take 1 capsule by mouth once daily at bedtime for 30 Active Pregabalin 75 MG 1 capsule Orally Three times a day 03/01/2024 Active HYDROcodone-Acetamin ophen 7.5-325 MG 1 tablet as needed Orally four times a day as needed 11/27/2023 Active Lidocaine Plus 4 % 1 application Externally Three times a day prn 12/12/2023 Active valACYclovir HCl 1 GM 1 tablet Orally three a day Active HYDROcodone-Acetamin ophen 7.5-325 MG 1 tablet as needed Orally Four times a day as needed 11/27/2023 Active Aspir-Low 81 MG 1 tab(s) orally once a day for 30 day(s) Active Lisinopril 20 MG 1 tab(s) orally once a day for 30 days Active CareTouch CPAP & BIPAP Hose 1 DIRECTED auto PAP 6/16 cm with heated humidifier *Please review and pick correct strength-formulatio n from Medispan options. If intended option is not shown, discontinue and re-order from Quick Search* 07/11/2018 Active PreserVision AREDS 2 - 1 cap(s) orally bid Active Multiple Vitamin - 1 cap(s) orally once a day for 30 day(s) Active Atorvastatin Calcium 80 MG 1 tab(s) orally once a day for 30 day(s) Active B-12 1000 MCG 1 tab(s) orally once a day for 30 day(s) 05/03/2018 Active Vitamin D3 50 MCG (2000 UT) 1 tab(s) orally once a day for 30 day(s) 05/03/2018 Active Ranolazine ER 1000 MG 1 tab(s) orally 2 times a day for 30 day(s) Active Vital Signs Blood pressure systolic 156 mm Hg 05/21/19 25 Blood pressure diastolic 96 mm Hg 025 Heart Rate 66 /min 05/20/2024 Height 72.5 in 05/20/2024 Weight 232.8 lbs 05/20/2024 BMI 31.14 kg/m2 05/20/2024 Encounters Encounter Location Date Provider Diagnosis [facility] [address], [place] [id number] 05/20/2024 Wilbert Kim Essential hypertensi on I10 ; Coronary artery disease involving coronary bypass graft of [place] heart without angina pectoris I25.810 ; Paresthesia of skin R20.2 and PJ (obstructive sleep apnea) G47.33 Assessments Encounter Date Diagnosis (ICD Code) Assessment Notes Treatment Notes Treatment Clinical Notes Section Notes 05/20/2024 Essential hypertension (ICD-10 - I10) 05/20/2024 Coronary artery disease involving coronary bypass graft of [place] heart without angina pectoris (ICD-10 - I25.810) 05/20/2024 Paresthesia of skin (ICD-10 - R20.2) 05/20/2024 PJ (obstructive sleep apnea) (ICD-10 - G47.33) Plan Of Treatment Medication Medication Name Sig Start Date Stop Date Notes Metoprolol Succinate ER 100 MG 1 tablet Orally Once a day for 90 days 05/20/2024 Metoprolol Succinate ER 50 MG 1 tablet Orally At Bed Time Metoprolol Succinate ER 25 MG 1 tablet Orally At Bed Time Pending Test Test Name Order Date P-Comprehensive Metabolic Panel (CMP) Next Appt Details Follow Up: 6 Weeks, Reason: Provider Name:Wilbert Oneill er, 08/12/2024 11:30:00 AM, [address], [address], [place], [place], [id number], Progress Notes * CHITO BRAVODOB: 8 (68 yo M)Acc No.[id number]:05/20/2024 Progress Notes Patient: CHITO GORDON Provider: Wilbert Kim M.D. :1955 A ge:68 Y S ex:Male Date:05/20/2024 Address:[facility] [address], [place], [id number] Subjective: * Chief Complaints: * 1 . Shingles vaccine and shoulder pain. * HPI: S houlder/Upper arm: 68 year old male presents with c/o shoulder pain P t sts he would like his right shoulder looked at today. Pt sts it is getting a lot better than it was. * ROS: D ERMATOLOGY: no R robe. n o H devante. G ASTROENTEROLOGY: no N ausea. n o V omiting. n o D iarrhea.? U ROLOGY: no D ifficulty urinating. n o B lood in urine. * Medical History: H [place], 02/22/2019 Carotids < 20%, 01/2020 mild thrombocytopenia, Pfizer Covid Vaccine , COVID 19 Infection 12/2020, COVID 19 Booster 11/13/2020, COVID 01 DEC 2021, Flu shot 2021. * Surgical History: H ernia Surgery , Heart cath 06/01, double bypass/open heart - [facility] 06/12/18, Heart cath 10/2018, cholecystectomy 2019. * Hospitalization/Major Diagno stic Procedure: [facility] - chest pain, CAD 05/23-06/17/18, [facility] Acid reflux 04/14/19. * Family History: F ather: diagnosed with Cancer. M other: diagnosed with Hypertension, Heart Disease, Cancer. * Social History: C URRENT TOBACCO USE: No . C affeine: yes, frequency: 3 cups coffee per day. 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 Alcohol: No. * Medications: T aking Metoprolol Succinate ER 25 MG Tablet Extended Release 24 Hour 1 tablet Orally At Bed Time , Taking Metoprolol Succinate ER 50 MG Tablet Extended Release 24 Hour 1 tablet Orally At Bed Time , Taking Ranolazine ER 1000 MG Tablet Extended Release 12 Hour 1 tab(s) orally 2 times a day , Taking Vitamin D3 50 MCG (2000 UT) Tablet 1 tab(s) orally once a day , Taking B-12 1000 MCG Tablet 1 tab(s) orally once a day , Taking Atorvastatin Calcium 80 MG Tablet 1 tab(s) orally once a day , Taking Aspir-Low 81 MG Tablet Delayed Release 1 tab(s) orally once a day , Taking Multiple Vitamin - Capsule 1 cap(s) orally once a day , Taking PreserVision AREDS 2 - Capsule 1 cap(s) orally bid , Taking CareTouch CPAP & BIPAP Hose MACHINE AND SUPPLIES 1 DIRECTED , Notes to Pharmacist: auto PAP 6/16 cm with heated humidifier *Please review and pick correct strength-formulation from Datappraisean options. If intended option is not shown, discontinue and re-order from Quick Search*, Taking Lisinopril 20 MG Tablet 1 tab(s) orally once a day , Taking HYDROcodone-Acetaminophen 7.5- 325 MG Tablet 1 tablet as needed Orally Four times a day as needed , Taking valACYclovir HCl 1 GM Tablet 1 tablet Orally three a day , Taking Lidocaine Plus 4 % Cream 1 application Externally Three times a day prn , Taking HYDROcodone-Acetaminophen 7.5-325 MG Tablet 1 tablet as needed Orally four times a day as needed , Taking Pregabalin 75 MG Capsule 1 capsule Orally Three times a day , Taking Omeprazole 20 MG Capsule Delayed Release 1 cap(s) orally twice a day , Taking Tamsulosin HCl 0.4 MG Capsule Take 1 capsule by mouth once daily at bedtime , Medication List reviewed and reconciled with the patient * Allergies: N .K.D.A. Objective: * Vitals: W t: 232.8, Temp: 98.5, BP: 156/96, HR: 66, Nurse: ghanshyam, Ht: 72.5, BMI:31.14. * Examination: G eneral Examination: General Appearance: N AD. HEENT: u nremarkable. Oral cavity: n o lesions, mucosa moist and WNL, no erythema. Neck: s upple, no lymphadenopathy. Chest: n ormal shape and expansion. Heart: R SR, S4, 174/100. Lungs: c lear to auscultation. Abdomen: soft and nontender. Neurologic Exam: I ntact, gait normal. Skin: n ormal, no rash. Peripheral pulses: n ormal . Extremities: n o leg edema. Assessment: * Assessment: 1. E ssential hypertension - I10 (Primary) 2 . C oronary artery disease involving coronary bypass graft of [place] heart without angina pectoris - I25.810 3 .?Paresthesia of skin - R20.2 4 . O SA (obstructive sleep apnea) - G47.33 Plan: * Treatment: * Labs: * L ab: P-Comprehensive Metabolic Panel (CMP) * Procedure Codes: G 2211 Complex e/m visit add on, 3077F SYST BP = 140 MM HG6 IT, 3080F DIAST BP = 90 MM HG * Follow Up: 6 Weeks * Billing Information: * Visit Code: 70651 Office Visit, Est Pt., Level 4. * Procedure Codes: G2211 Complex e/m visit add on. 3077F SYST BP = 140 MM HG6 IT. 3080F DIAST BP = 90 MM HG. * Electronic signature of Wilbert Kim MD on 07/19/2024 at 02:11 PM EDT Sign off status: Pending * Provider: Wilbert Kim M.D. Date: 0 05/20/2024 Generated for Olu bowen/Bonifacio/eTransmitting on: 0 07/19/2024 02:11 PM EDT History and Physical Notes * HPI (History of Present Illness) Category Sub-Category Detail Notes Category Not es Shoulder/Upper arm shoulder pain Pt sts he wou ld like his right shoulder looked at today. Pt sts it is getting a lot better than it was Examination Category Sub-Category Detail Notes Category Not es General Examination HEENT: unremarkable Heart: RSR, S4, 174/100 Lungs: clear to auscultatio n Abdomen: soft and nontender Extremities: no leg edema General Appearance: NAD Skin: normal, no rash Neurologic Exam: Intact, gait normal Neck: supple, no lymphaden opathy Oral cavity: no lesions, mucosa m oist and WNL, no erythema Peripheral pulses: normal Chest: normal shape and exp ansion
--- OUTSIDE RECORDS SUMMARY | 2024-06-18 06:50 | XMS_ITS ---
Author Organization [facility] Address [address] [facility] [address] [place] [id number] Care Team Providers Care Rehabilitation Specialist Name Role Phone Wilbert Kim Primary Care Provider Results Component Value Reference Range Notes P-Comprehensive Metabolic [place] (CMP) Reviewed date:06/28/2024 04:17:13 PM Interpretation:satisfactory Performing Lab: Notes/Report: Test performed by [facility] [address] , [address], [place] [address] Kan Quintana MD, Linux Security Administrator CLIA: [id number] Sodium 139 135-145 mmol/L Potassium 4.6 3.5-5.3 mmol/L Chloride 104 97-108 mmol/L CO2 25 22-32 mmol/L Glucose 98 65-99 mg/dL BUN 17 8-23 mg/dL Creatinine 1.00 0.70-1.30 mg/dL Calcium 9.7 8.6-10.4 mg/dL eGFR by Creatinine 83 >59 mL/min/1.73m2 Protein 6.6 6.0-8.3 g/dL Albumin 4.7 3.5-5.3 g/dL Alkaline Phosphatase 100 40-129 IU/L ALT (SGPT) 29 <5-55 IU/L AST (SGOT) 23 <5-46 IU/L Bilirubin, Total 1.3 <0.2-1.2 mg/dL A/G Ratio 2.5 1.1-2.5 Encounters Encounter Location Date Provider Diagnosis [facility] [address] [place] [id number] 06/18/2024 Wilbert Kim Essential hypertensi on I10 Assessments Encounter Date Diagnosis (ICD Code) Assessment Notes Treatment Notes Treatment Clinical Notes Section Notes 06/18/2024 Essential hypertension (ICD-10 - I10) Plan Of Treatment Next Appt Details Provider Name:Wilbert Bridges Mai er, 08/12/2024 11:30:00 AM, [address], [address], [place], [place], [id number], Progress Notes * CHITO BRAVODOB: 8 (68 yo M)Acc No.[id number]:06/18/2024 Patient: CHITO GORDON Provider: Wilbert Kim M.D. :1955 A ge:68 Y S ex:Male Date:06/18/2024 Address:[address] [place] [address], [facility], [id number] Subjective: * Chief Complaints: * * Medical History: Objective: * Vitals: Assessment: * Assessment: 1. E ssential hypertension - I10 Plan: * Treatment: Value Reference Range A /G Ratio 2.5 1.1-2.5 - * A lbumin 4.7 3.5-5.3 - g/dL * A lkaline Phosphatase 100 40-129 - IU/L * A LT (SGPT) 29 <5-55 - IU/L * A ST (SGOT) 23 <5-46 - IU/L * B ilirubin, Total 1.3 H <0.2-1.2 - mg/dL * B UN 17 8-23 - mg/dL * C alcium 9.7 8.6-10.4 - mg/dL * C hloride 104 97-108 - mmol/L * C O2 25 22-32 - mmol/L * C reatinine 1.00 0.70-1.30 - mg/dL * G lucose 98 65-99 - mg/dL * P otassium 4.6 3.5-5.3 - mmol/L * S odium 139 135-145 - mmol/L * P rotein 6.6 6.0-8.3 - g/dL * e GFR by Creatinine 83 >59 - mL/min/1.73m2 * Maribel Alexandra 06/28/2024 04 :17:05 PM > Patient informed of normal results. * Billing Information: * Visit Code: * Procedure Codes: * Electronic signature of Wilbert Kim MD on 07/19/2024 at 02:11 PM EDT Sign off status: Pending * Provider: Wilbert Kim M.D. Date: 0 06/18/2024 Generated for Olu bowen/Bonifacio/Sylvieitting on: 0 07/19/2024 02:11 PM EDT
--- OUTSIDE RECORDS SUMMARY | 2024-07-11 11:45 | XMS_ITS ---
Author Organization [facility] Address [address] [place] [id number] Care Team Providers Care Horse Racer Name Role Phone Wilbert Kim Primary Care Provider [phone] Allergies No Known Allergies Reason For Referral Reason Poorly controlled hy pertension Diagnosis 1 Essential hypertensi on (I10) Referral Organization [facility] Referring Provider First Name Wilbert Bridges Referring Provider Last Name Julio Referring Provider Speciality Family [facility] ctice Referred Provider Specialty Cardiovascul ar Disease General Notes Korin Duncan 2024 10:40:09 AM > faxed to [facility] CardiologyPerla Brynn 07/17/2024 12:02:16 PM > 08/19/2024 at 8:30am Referral Priority Routine REASON FOR VISIT 6 weeks Medications Medication SIG (Take, Route, Frequency, Duration) Notes Start Date End Date Status Metoprolol Succinate ER 100 MG 1 tablet Orally Once a day for 90 days 05/20/2024 Active Pregabalin 75 MG 1 capsule Orally Three times a day 03/01/2024 Active Omeprazole 20 MG TAKE 1 CAPSULE BY MOUTH TWICE DAILY FOR 30 DAYS for 30 Active Tamsulosin HCl 0.4 MG TAKE 1 CAPSULE BY MOUTH ONCE DAILY AT BEDTIME FOR 30 DAYS for 30 Active HYDROcodone-Acetamin ophen 7.5-325 MG 1 [...] a day for 30 day(s) 05/03/2018 Active Multiple Vitamin - 1 cap(s) orally once a day for 30 day(s) Active Aspir-Low 81 MG 1 tab(s) orally once a day for 30 day(s) Active Vitamin D3 50 MCG (2000 UT) 1 tab(s) orally once a day for 30 day(s) 05/03/2018 Active Lisinopril 40 MG 1 tablet Orally Once a day for 30 day(s) 07/11/2024 Active Ranolazine ER 1000 MG 1 tab(s) orally 2 times a day for 30 day(s) Active Vital Signs Blood pressure systolic 150 mm Hg 07/12/19 25 Blood pressure diastolic 100 mm Hg 025 Heart Rate 70 /min 07/11/2024 Height 72.5 in 07/11/2024 Weight 229.0 lbs 07/11/2024 BMI 30.63 kg/m2 07/11/2024 Encounters Encounter Location Date Provider Diagnosis [facility] [address], [place] [id number] 07/11/2024 Wilbert Kim Essential hypertensi on I10 and BMI 30.0-30.9,adult Z68.30 Assessments Encounter Date Diagnosis (ICD Code) Assessment Notes Treatment Notes Treatment Clinical Notes Section Notes 07/11/2024 Essential hypertension (ICD-10 - I10) 07/11/2024 BMI 30.0-30.9,adult (ICD-10 - Z68.30) Plan Of Treatment Medication Medication Name Sig Start Date Stop Date Notes Lisinopril 40 MG 1 tablet Orally Once a day for 30 day(s) 07/11/2024 Lisinopril 20 MG 1 tab(s) orally once a day Pending Test Test Name Order Date Ultrasound : Kidneys, bilateral 07/12/19 25 Referrals Referral Date Details 07/11/2024 07/11/2024, Poorly c ontrolled hypertension Next Appt Details Follow Up: 4 Weeks, Reason: Provider Name:Wilbert Oneill er, 08/12/2024 11:30:00 AM, [address], [address], [place], [phone], Progress Notes * CHITO BRAVODOB: 8 (68 yo M)Acc No.[id number]:07/11/2024 Progress Notes Patient: CHITO GORDON Provider: Wilbert Kim M.D. :1955 A ge:68 Y S ex:Male Date:07/11/2024 Address:[address] [place] [address], [place], [id number] Subjective: * Chief Complaints: * 1 . [...] 20%, 01/2020 mild thrombocytopenia, Pfizer Covid Vaccine Mar/, COVID 19 Infection 12/2020, COVID 19 Booster 11/13/2020, COVID 01 DEC 2021, Flu shot 2021. * Surgical History: H ernia Surgery , Heart cath 06/01, double bypass/open heart - [place] 06/12/18, Heart cath 10/2018, cholecystectomy 2019. * Hospitalization/Major Diagno stic Procedure: [facility] - chest pain, CAD 05/23-06/17/18, [place] Acid reflux 04/14/19. * Family History: F ather: diagnosed with Cancer. M other: diagnosed with Hypertension, Heart Disease, Cancer. * Social History: C URRENT TOBACCO USE: No . C affeine: yes, frequency: 3 cups coffee per day. 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 If intended option is not shown, [...] shape and expansion. Heart: R SR, S4, 150/88. Lungs: c lear to auscultation. Abdomen: soft and nontender. Neurologic Exam: I ntact, gait normal. Skin: n ormal, no rash. Peripheral pulses: n ormal . Extremities: n o leg edema. Assessment: * Assessment: 1. E ssential hypertension - I10 (Primary) 2 . B WI 30.0-30.9,adult - Z68.30 Plan: * Treatment: ? Referral To:Cardiovascular Disease ?Reason:Poorly controlled hypertension * Procedure Codes: G 2211 Complex e/m visit add on, G8950 PREHTN/HTN BP DOC INDCD F/U DOC, G8753 MOST RECENT SYSTOLIC BP >= 140MM HG, G8754 MOST RECENT DIASTOLIC BP < 90MM HG, 3017F COLORECTAL CA SCREEN DOC REV * Preventive Medicine: Screening / Special Tests: C olonoscopy C ologuard:, negative 07/28/2023. * Follow Up: 4 Weeks * Billing Information: * Visit Code: 36208 Office Visit, Est Pt., Level 3. * Procedure Codes: G2211 Complex e/m visit add on. G8950 PREHTN/HTN BP DOC INDCD F/U DOC. G8753 MOST RECENT SYSTOLIC BP >= 140MM HG. G8754 MOST RECENT DIASTOLIC BP < 90MM HG. 3017F COLORECTAL CA SCREEN DOC REV. * Electronic signature of Wilbert Kim MD on 07/19/2024 at 02:12 PM EDT Sign off status: Pending * Provider: Wilbert Kim M.D. Date: 0 07/11/2024 Generated for Olu bowen/Bonifacio/Sylvieitting on: 0 07/19/2024 02:12 PM EDT History and Physical Notes * [...] Referring Provider Referred Provider Not es 07/11/2024 Wilbret Kim , Poorly con trolled hypertension
--- OUTSIDE RECORDS SUMMARY | 2024-07-17 07:11 | XMS_ITS | Continuity of Care Document ---
Author Organization [facility] Phone Care Team Providers Care Warehouse Receiving Supervisor Name Role Phone AARON BARNARD Primary Care ASHTYN ZAMAN Primary Attending [phone] ASHTYN ZAMAN Admitting ASHTYN ZAMAN Unavailable ALLERGIES AND ADVERSE REACTIONS ALLERGIES AND ADVERSE REACTIONS Code System Allergy Substance Adverse Reaction Date Reaction (Severity) Comment Status Reported By Updated By No Known Allergies FAMILY HISTORY RELATION: Father Status: Cause of : Unknown Age at : Unknown SNOMED-CT Diagnosis Age At Onset 535[address] Essential hypertension 12283531 Respiratory complication RELATION: Mother Status: LIVING SNOMED-CT Diagnosis Age At Onset [id number] Essential hypertension [id number] Malignant tumor of breast RESULTS Patient: LAWRENCE FOLEY II Date of : [birth year] 60 LABORATORY RESULTS ORDER 200: PROSTATE SPECIFIC AG PSA (LOINC: 2857-1) ORDER DATE: July 15, 2024 8:09:00 PM [facility] Specimen Source: Serum/Plasm a Specimen Type: Acellular blo od (serum or plasma) specimen PERFORMING LAB: [address] [id number] Result Comment: Final Result Date: July 15, 2024 8:56:00 PM [facility] (TECH: [facility]) LOINC TEST FLAG RESULT REFERENCE RANGE UPDA PHILIPPE BY 2857-1 Prostate specific Ag [Mass/volume] in Serum or Plasma H 4.38 ng/mL 0.0 ng/mL - 4.0 ng/mL July 15 8:56:00 PM [facility] (TECH: [facility]) LABORATORY NARRATIVE RESULTS Information is not available RADIOLOGY RESULTS Information is not available PATHOLOGY NARRATIVE RESULTS Information is not available MICROBIOLOGY RESULTS No Micro Labs/Results Exist for Patient BLOOD ADMIN RESULTS Information is not available MEDICATIONS HOME MEDICATIONS Status RXNORM [facility] Medication Dose Route Frequency Dates Comments Reported By Updated By Drug Treatment Unknown DISCHARGE MEDICATIONS Status RXNORM NDC Medication Dose Route Frequency Dates Comments Physician Updated By No Discharge Medication Info rmation Available INPATIENT MEDICATIONS Status RXNORM NDC Medication Dose Route Frequency Rat e Quantity Dates Comments Physician Updated By No Inpatient Medication Info rmation Available SOCIAL HISTORY SOCIAL HISTORY SNOMED-CT Social History Element Description Effective Dates Offered Cessation Comment UpdatedBy [id number] Historical Tobacco smoking status Never Smoked Yes [id number] on December 11, 2015 9:06:29 PM [facility] [id number] Historical Tobacco smoking status Unknown If Ever Smoked Yes smokeless tobacco [id number] on October 01, 2012 1:51:39 PM [facility] SOCIAL HISTORY - Gender Sex: Male SOCIAL HISTORY - Status : status i nformation is not available Intention in Next Year: intention information is not available SOCIAL HISTORY - Sexual Behavior Sexual Orientation Gender Identity SNOMED-CT Description SNO MED -CT Description Activity Level No of Partners Partner Type UpdatedBy Information is not available HEALTH CONCERNS Problems Concern Status Health Concern problem infor mation not available. Smoking Status Status Years Used Consumed packs p er day Health Concern smoking histo ry information not available. Family History Concern Status Health Concern family histor y information not available. ENCOUNTERS ENCOUNTER INFORMATION Reason for Visit R97.20 Admission July 15, 2024 8:01:[address] [phone] Discharge July 15, 2024 8:01:00 PM [facility] DISC HARGED TO HOME OR SELF CARE ENCOUNTER DIAGNOSES Notes information is not lonnie ilable. Code System Diagnosis Onset Date Diagnosis information is not available. ABSTRACT DIAGNOSES Code System Diagnosis Updated By R97.20 ICD10 ELEVATED PROSTAT E SPECIFIC ANTIGEN [PSA] [id number] on July 17, 2024 11:10:54 AM [facility] R97.20 ICD10 ELEVATED PROSTAT E SPECIFIC ANTIGEN [PSA] [id number] on July 17, 2024 11:10:57 AM [facility] CARE TEAM Care Warehouse Receiving Supervisor Role AARON BARNARD Primary Care ASHTYN ZAMAN Primary Attending ASHTYN ZAMAN Admitting ASHTYN ZAMAN Referring CARE TEAM CARE icu clerk Role on Team Status Start Date End Date Update d By AKIL MOSS MD PCP normal July 15, 2024 4:00:00 AM [facility] July 15, 2024 8:01:00 PM [facility] [id number] on July 15, 2024 8:03:37 PM [facility] JUNIE Suggs MD Referring normal July 15, 2024 4:00:00 AM [facility] July 15, 2024 8:01:00 PM [facility] [id number] on July 15, 2024 8:03:37 PM [facility] JUNIE Suggs MD Attending normal July 15, 2024 4:00:00 AM [facility] July 15, 2024 8:01:00 PM [facility] [id number] on July 15, 2024 8:03:37 PM [facility] JUNIE Suggs MD Admitting normal July 15, 2024 4:00:00 AM [facility] July 15, 2024 8:01:00 PM [facility] [id number] on July 15, 2024 8:03:37 PM [facility]
--- NOTE | 2024-07-19 14:10 | US_ITS ---
FINAL REPORT CLINICAL HISTORY: HYPERTENSION COMPARISON: None FINDINGS: RENAL ULTRASOUND Ultrasound images of the kidneys were obtained. The right kidney measures 12.7 cm in length. No hydronephrosis or mass. There may be mild renal cortical thinning. The left kidney measures 12.1 cm in length. No hydronephrosis. Upper pole cyst measures 19 mm. Mild left renal cortical thinning. The spleen is enlarged measuring 14.7 cm. IMPRESSION: Left renal cyst. Bilateral renal cortical thinning. Reviewed, Interpreted and Dictated by Brynn Leavitt MD Transcribed by Es [place] Authenticated and [facility]
--- OUTSIDE RECORDS SUMMARY | 2024-07-19 14:11 | XMS_ITS | Encounter Summary ---
Author Organization [employer] Address [address] [place] [address] Care Team Providers Care Sailing Instructor Name Role Phone Unavailable Primary Care Provider Unavailabl e Encounter Details Date Type Department Care Team (Late st Contact Info) Description 02/07/2020 Transcribed Document [facility] [place] Family Medicine [facility] [place] [address] ProviderRaj MD [address] [place] [address] [id number] Social History Tobacco Use Types Packs/Day Years Used Date Smoking Tobacco: Never Assessed Sex and Gender Information Value Date Recorded Sex Assigned at Male 08/12/2021 6:27 PM CDT Legal Sex Male 7:15 PM CDT Gender Identity Male 08/12/2021 6:27 PM CDT Sexual Orientation Not on file documented as of this encounter Miscellaneous Notes * Cerner Conversion Note - Historical ProviderMD - 02/07/2020 10:59 PM FOREST PATHOLOGY 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 PROFESSOR ED Triage Entered On: 02/07/2020 23:09 EST Performed On: 02/07/2020 23:03 EST by RILEY PAGAN RN ED Triage Across the Room Chief Complaint : c/o My BP has been fluctuating for the last 3 days ; also has left arm pain and backpain- pain at 2/10; has been nauseated every morning x 3 days; Denies vomiting; Patient has hx of 2 cardiac bypass surgery; RILEY PAGAN RN - 02/07/2020 23:22 EST Triage Date/Time : 02/07/2020 23:03 EST RILEY PAGAN RN - 02/07/2020 23:03 EST DCP GENERIC CODE Tracking Group : [facility] ED [facility] Tracking Acuity : 3 - Urgent RILEY PAGAN RN - 02/07/2020 23:03 EST Mode of Arrival : Ambulatory Transported to ED by : Private vehicle To Room Via : Ambulate Accompanied By : Unaccompanied ED Vital Signs : Document Height & Weight : Document ED Allergies : Document ED Reason for Visit : Document RILEY PAGAN RN - 02/07/2020 23:03 EST Infectious Disease History Has the patient ever been tested for COVID-19? : No, Patient stated Does patient have symptoms of COVID-19? : No COVID19 Screening : No Experiencing Infectious Disease Symptoms : No symptoms Physical contact outside [place] in the last 30 days : No Infectious Disease History : Chicken pox/Shingles, Influenza, Measles, Mumps Tuberculosis Symptoms : None RILEY PAGAN RN - 02/07/2020 23:03 EST Vital Signs ED Temperature Source : Oral Temperature Mode : Fahrenheit Temperature, Fahrenheit : 97.9 Deg F ED Pain : Yes Clinical Temperature, C : 36.6 Deg C Oxygen Therapy Mode : Room air Peripheral Pulse Rate : 95 bpm Respiratory Rate : 20 Breaths/Min Blood Pressure Location : Arm, right upper Blood Pressure Source : Non-Invasive BP Device Systolic Blood Pressure : 164 mmHg (HI) Diastolic Blood Pressure : 84 mmHg Oxygen Saturation : 95 % RILEY PAGAN RN - 02/07/2020 23:03 EST Allergy (As Of: 02/07/2020 23:09:30 EST) Allergies (Active) No Known Medication Allergies Estimated Onset Date: Unspecified ; Created By: RILEY PAGAN RN; Reaction Status: Active ; Category: Drug ; Substance: No Known Medication Allergies ; Type: Allergy ; Updated By: RILEY PAGAN RN; Reviewed Date: 02/07/2020 23:03 EST Diagnosis Control ED (As Of: 02/07/2020 23:12:51 EST) Problems(Active) HTN (hypertension) (SNOMED CT :6825870406 ) Name of Problem: HTN (hypertension) ; Recorder: RILEY PAGAN RN; Confirmation: Confirmed ; Classification: Medical ; Code: [id number] ; Contributor System: Escom ; Last Updated: 02/07/2020 23:04 EST ; Life Cycle Date: 02/07/2020 ; Life Cycle Status: Active ; Vocabulary: SNOMED CT S/P cholecystectomy (SNOMED CT :4754669707 ) Name of Problem: S/P cholecystectomy ; Recorder: RILEY PAGAN RN; Confirmation: Confirmed ; Classification: Medical ; Code: [id number] ; Contributor System: Escom ; Last Updated: 02/07/2020 23:05 EST ; Life Cycle Date: 02/07/2020 ; Life Cycle Status: Active ; Vocabulary: SNOMED CT S/P hernia repair (SNOMED CT :9648624077 ) Name of Problem: S/P hernia repair ; Recorder: RILEY PAGAN RN; Confirmation: Confirmed ; Classification: Medical ; Code: [id number] ; Contributor System: Escom ; Last Updated: 02/07/2020 23:05 EST ; Life Cycle Date: 02/07/2020 ; Life Cycle Status: Active ; Vocabulary: SNOMED CT Diagnoses(Active) Arm pain-swelling Date: 02/07/2020 ; Diagnosis Type: Reason For Visit ; Confirmation: Complaint of ; Clinical Dx: Arm pain-swelling ; Classification: Medical ; Clinical Service: Emergency medicine ; Code: PNED ; Probability: 0 ; Diagnosis Code: [id number] Back pain Date: 02/07/2020 ; Diagnosis Type: Reason For Visit ; Confirmation: Complaint of ; Clinical Dx: Back pain ; Classification: Medical ; Clinical Service: Emergency medicine ; Code: PNED ; Probability: 0 ; Diagnosis Code: [id number] HTN - Hypertension Date: 02/07/2020 ; Diagnosis Type: Reason For Visit ; Confirmation: Complaint of ; Clinical Dx: HTN - Hypertension ; Classification: Medical ; Clinical Service: Emergency medicine ; Code: PNED ; Probability: 0 ; Diagnosis Code: [id number] ED Height and Weight Height Source : Measured Height Entry Format : [place] Height, Feet : 6 ft(Converted to: 183 cm, 72 Inch) Height, Inches : 1 Inch(Converted to: 0 ft 1 Inch, 2.54 cm) Clinical Height : 185.42 cm Weight Source, ED : Standing scale Weight Entry Format : [place] Weight, Pounds : 215 lb Clinical Dosing Weight : 97.73 kg Body Surface Area (BSA) : 2.22 m2 Body Mass Index : 28.4 kg/m2 (HI) [place] Body Weight (IBW) : 78.88 kg RILEY PAGAN RN - 02/07/2020 23:03 EST Pain Assessment Pain Assessment : Initial assessment Pain Scale Used : 0-10 Scale Location : Arm, left, Back, middle Quality : Aching RILEY PAGAN RN - 02/07/2020 23:03 EST Pain Scale Intensity : 2 RILEY PAGAN RN - 02/07/2020 23:03 EST Image 4 - Images currently included in the form version of this document have not been included in the text rendition version of the form. ED Influenza/Pneumoccocal Vaccine Influenza Immunization, Current Season : Yes Previous Vaccines from Immunization Schedule : No qualifying data available. RILEY PAGAN RN - 02/07/2020 23:03 EST documented in this encounter Plan of Treatment Not on file documented as of this encounter Visit Diagnoses Not on filedocumented in this encounter
--- OUTSIDE RECORDS SUMMARY | 2024-07-19 14:11 | XMS_ITS | Encounter Summary ---
Author Organization [employer] Address [address] [place] [address] Care Team Providers Care Spectrographic Analyst Name Role Phone Unavailable Primary Care Provider Unavailabl e Encounter Details Date Type Department Care Team (Late st Contact Info) Description 02/08/2020 Transcribed Document [facility] [place] Family Medicine [address] [place] [address] ProviderRaj MD [address] [place] [address] Social History Tobacco Use Types Packs/Day Years Used Date Smoking Tobacco: Never Assessed Sex and Gender Information Value Date Recorded Sex Assigned at Male 08/12/2021 6:27 PM CDT Legal Sex Male 7:15 PM CDT Gender Identity Male 08/12/2021 6:27 PM CDT Sexual Orientation Not on file documented as of this encounter Miscellaneous Notes * Cerner Conversion Note - Historical ProviderMD - 02/08/2020 1:10 AM SATELLITE TV TECHNICIAN ED Discharge Entered On: 02/08/2020 1:10 EST Performed On: 02/08/2020 1:10 EST by JU CLARK RN Discharge Process Patient Disposition : Discharge Personal Belongings With Patient : Yes Patient Education Completed : Yes IV Discontinued : Yes Nursing Documentation Completed : Yes JU CLARK RN - 02/08/2020 1:10 EST ED Discharge Discharge To : Home with ambulatory/outpatient follow-up Mode Of Departure : Ambulatory Prescriptions Given to Patient : No JU CLARK RN - 02/08/2020 1:10 EST documented in this encounter Plan of Treatment Not on file documented as of this encounter Visit Diagnoses Not on filedocumented in this encounter
--- OUTSIDE RECORDS SUMMARY | 2024-07-19 14:11 | XMS_ITS | Encounter Summary ---
Author Organization [employer] Address [address] [place] [address] Care Team Providers Care Research Executive Name Role Phone Unavailable Primary Care Provider Unavailabl e Encounter Details Date Type Department Care Team (Late st Contact Info) Description 02/07/2020 Transcribed Document [facility] [place] Medicine [address] [place] [address] ProviderRaj MD [facility] [place], [place] [id number] Social History Tobacco Use Types Packs/Day Years Used Date Smoking Tobacco: Never Assessed Sex and Gender Information Value Date Recorded Sex Assigned at Male 08/12/2021 6:27 PM CDT Legal Sex Male 7:15 PM CDT Gender Identity Male 08/12/2021 6:27 PM CDT Sexual Orientation Not on file documented as of this encounter Miscellaneous Notes * Cerner Conversion Note - Historical ProviderMD - 02/07/2020 11:28 PM CONFIGURATION RELEASE 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 History source: Patient. Arrival mode: Private vehicle, walking. History limitation: None. Additional information: Chief Complaint from Nursing Triage Note : Chief Complaint 02/07/2020 23:03 EST Chief Complaint c/o My BP has been fluctuating for the last 3 days ; also has left arm pain and backpain- pain at 2/10; has been nauseated every morning x 3 days; Denies vomiting; Patient has hx of 2 cardiac bypass surgery; (Modified) . History of Present Illness The patient presents with high blood pressure. The onset was 3 days ago. The course/duration of symptoms is fluctuating in intensity. The maximum degree of hypertension is systolic blood pressure: 184 mmHg diastolic blood pressure: 94 mmHg. Risk factors consist of hypertension and coronary artery disease. Prior episodes: occasional. Therapy today: see nurses notes. Associated symptoms: nausea, denies chest pain, denies headache, denies dizziness, denies abdominal pain, denies vomiting, denies shortness of breath and denies syncope. Patient: Complaint of having elevated blood pressure off and on for last 3 days, denies any headache, no chest pain, no shortness of breath, complaining of pain in his left arm, radiates to his left upper back, also complained of tingling in the left finger, denies any sweating, no shortness of breath, no syncope, patient has history of coronary artery disease, had bypass surgery, patient takes lisinopril 10 mg, and metoprolol 25 mg 1/2 tablet twice a day patient also take aspirin and Lipitor, patient has an appointment to see his primary care physician in 4 days,. Review of Systems Constitutional symptoms: No fever, no chills, no decreased activity. Skin symptoms: No rash, no pruritus, no ruelas, no petechiae, no lesion. Eye symptoms: No recent vision problems, no pain, no discharge. ENMT symptoms: No ear pain, no sore throat, no nasal congestion. Respiratory symptoms: No shortness of breath, no cough. Cardiovascular symptoms: No chest pain, no palpitations, no syncope, no diaphoresis, no peripheral edema. Gastrointestinal symptoms: Nausea, no abdominal pain, no vomiting, no diarrhea. Genitourinary symptoms: No dysuria, no hematuria. Musculoskeletal symptoms: No Muscle pain, no Joint pain. Neurologic symptoms: Tingling, no headache, no dizziness, no altered level of consciousness, no weakness. Psychiatric symptoms: No anxiety, no depression. Endocrine symptoms: No polyuria, Hematologic/Lymphatic symptoms: Bleeding tendency negative, Allergy/immunologic symptoms: No seasonal allergies, Additional review of systems information: No recent travel or surgery. No Abx recently. No change in meds recently Denies IVDA No history of trauma or injury -NO TRAVEL OR EXPOSURE TO POTENTIAL OR DIAGNOSED COVID-19 VIRUS . Health Status Allergies: Allergic Reactions (Selected) No Known Medication Allergies. Medications: (Selected) Documented Medications Documented Lipitor 80 mg oral tablet: 1 Tab, Oral, Daily, 0 Refill(s) Metoprolol Succinate ER 25 mg oral tablet, extended release: 1 Tab, Oral, BID, 0 Refill(s) aspirin 81 mg oral delayed release tablet: 1 Tab, Oral, Daily, 30 Tab, 0 Refill(s) lisinopril: 10 mg, Oral, Daily, 0 Refill(s) multivitamin: 1 Tab, Oral, Daily, 0 Refill(s) omeprazole 20 mg oral delayed release capsule: 1 Cap, Oral, Daily, 0 Refill(s). Immunizations: Per nurse's notes. Past Medical/ Family/ Social History Medical history Reviewed as documented in chart. Cardiovascular: coronary artery disease, hypertension. Surgical history: No active procedure history items have been selected or recorded., Reviewed as documented in chart. Family history: No family history items have been selected or recorded., Reviewed as documented in chart. Social history: Social & Psychosocial Habits Alcohol 02/07/2020 Alcohol Use History, Social Habits No Alcohol Use in Last Twelve Months No Substance Abuse 02/07/2020 Recreational Drug Use History No Recreational Drug Use Last 12 Months No Tobacco 02/07/2020 Smoking Status Never (less than 100 in l , Reviewed as documented in chart. Problem list: Active Problems (3) HTN (hypertension) S/P cholecystectomy S/P hernia repair , per nurse's notes. Physical Examination Vital Signs Vital Signs/Vital Measures 02/07/2020 23:03 EST Blood Pressure Location Arm, right upper Blood Pressure Source Non-Invasive BP Device Systolic Blood Pressure 164 mmHg HI Diastolic Blood Pressure 84 mmHg Temperature Source Oral Temperature Mode Fahrenheit Temperature, Fahrenheit 97.9 Deg F Clinical Temperature, C 36.6 Deg C Peripheral Pulse Rate 95 bpm Respiratory Rate 20 Breaths/Min Oxygen Saturation 95 % Oxygen Therapy Mode Room air . Measurements 02/07/2020 23:03 EST Height Source Measured Height Entry Format [place] Height/Length, TURKMEN (ft) 6 ft Height/Length TURKMEN 1 Inch CLINICALHEIGHT 185.42 cm [place] Body Weight 78.88 kg Weight Source, ED Standing scale Weight Entry Format [place] Weight [place] lb 215 lb CLINICALWEIGHT 97.73 kg Body Surface Area (BSA) 2.22 m2 Body Mass Index 28.4 kg/m2 HI . Oxygen Saturation 02/07/2020 23:03 EST Oxygen Saturation 95 % . General: Alert, no acute distress. Skin: Warm, dry, pink, intact, no pallor, no rash, not cyanotic, not cool, not pale. Head: Normocephalic, atraumatic. Neck: Supple, no JVD, no carotid bruit, No meningeal signs. Eye: Pupils are equal, round and reactive to light, extraocular movements are intact, normal conjunctiva. Ears, nose, mouth and throat: Oral mucosa moist, no pharyngeal erythema or exudate, Hearing unchanged. Cardiovascular: Regular rate and rhythm, No murmur, Normal peripheral perfusion, No edema, no cardiac rub, no click. Respiratory: Lungs are clear to auscultation, respirations are non-labored, breath sounds are equal, Symmetrical chest wall expansion. Chest wall: No tenderness, No deformity. Back: Nontender, Normal range of motion, Normal alignment, no step-offs. Musculoskeletal: Normal ROM, normal strength, no tenderness, no swelling, no deformity, BILATERAL SHOULDER/ELBOW/WRIST/HAND: No swelling, no redness, no tenderness, ROM full, active passive and resistive BILATERAL UPPER ARM/FOREARM : No swelling, no redness, no tenderness, No signs of DVT BILATERAL Brachial, Radial & Ulnar Arteries normal, Capillary Refil brisk Sensations normal. . Gastrointestinal: Soft, Nontender, Non distended, No organomegaly. Neurological: Alert and oriented to person, place, time, and situation, No focal neurological deficit observed, CN II-XII intact, normal motor observed, normal speech observed, normal coordination observed. Lymphatics: No lymphadenopathy. Psychiatric: Cooperative, appropriate mood & affect, normal judgment. Medical Decision Making Differential Diagnosis: Uncontrolled hypertension, coronary artery disease. Documents reviewed: Emergency department nurses' notes. Electrocardiogram: Time 02/08/2020 23:29:00, rate 54, normal sinus rhythm, No ST changes, no ectopy, EP Interp, First-degree AV block. Results review: Lab results : Lab Results 02/07/2020 23:32 EST Sodium Level 140 mmol/L Potassium Level 4.2 mmol/L Chloride Level 108 mmol/L Carbon Dioxide Level 26 mmol/L Anion Gap 10 Glucose Level 129 mg/dL HI Blood Urea Nitrogen 17 mg/dL Creatinine Level 1.13 mg/dL eGFR >60 mL/min/1.73m2 eGFR NonAfrican >60 mL/min/1.73m2 Bun/Creatinine 15.0 Calcium Level 8.7 mg/dL Protein Total 6.3 Gram/dL LOW Albumin Level 3.9 Gram/dL Globulin 2.4 Gram/dL A/G Ratio 1.6 Bilirubin Total 1.3 mg/dL Alk Phos 93 Units/Liter AST 25 Units/Liter ALT 42 Units/Liter Troponin I Ultra <0.015 ng/mL ProBNP 137 pg/mL HI WBC 5.6 K/uL RBC 4.31 Million/uL LOW Hgb 14.3 Gram/dL Hct 39.6 % LOW MCV 91.9 fL MCH 33.2 pg HI MCHC 36.1 Gram/dL Platelet Count 137 K/uL LOW MPV 10.1 fL RDW 12.0 % Neut % 67.6 % Neut # 3.80 K/uL Lymph % 17.5 % LOW Lymph # 0.98 K/uL LOW [place] % 11.1 % [place] # 0.62 K/uL Eos % 2.7 % Eos # 0.15 K/uL Baso % 0.7 % Baso # 0.04 K/uL Slide Review No IG# 0 x10(3)/uL IG% 0 % T4 Total 7.7 mcg/mL TSH 2.550 mcInt Units/mL . Chest X-Ray: No acute disease process, interpretation by Emergency Physician. Reexamination/ Reevaluation Time: 02/08/2020 00:42:00 . Course: improving. Assessment: BP is getting better. Notes: d/w pt. results of the diagnostics done in the ED, differential diagnoses of symptoms, advised to watch patient in the ED, for observation and repeat troponin, patient feels much better, wants to go home, does not want to stay in the ED, his blood pressure is much better, I offered him to start a new blood pressure medication or increase the dose of his current blood pressure medication, patient refused that also, he has an appointment to see his primary care physician in few days he will keep an eye on his blood pressure and will follow up with PCP/care clinician for further evaluation and treatment, return to ER if symptoms worsen. Pt. was given specific instructions to return to the Emergency Department.. Impression and Plan Diagnosis Hypertension - Discharge, Emergency medicine, Medical Left arm pain - Discharge, Emergency medicine, Medical Paresthesia - Discharge, Emergency medicine, Medical Thrombocytopenia - Discharge, Emergency medicine, Medical Plan Condition: Improved, Stable. Disposition: Discharged Admit/Transfer/Discharge: Discharge (Order): Start: 02/08/2020 0:55 EST, Discharge to: Home. Patient was given the following educational materials: Hypertension, Adult, Paresthesia, Thrombocytopenia. Follow up with: AARON BARNARD Within 2 to 3 days; Return to emergency department Within As needed Return if condition worsens, if you have chest pain, trouble breathing, vomiting, dizziness, fainting, etc. Make sure you follow-up with your primary care physician and heart doctor for further evaluation and management of your symptoms, you may need outpatient stress test/echocardiogram, etc.. Counseled: Patient, Family, Regarding diagnosis, Regarding diagnostic results, Regarding treatment plan, Regarding prescription, Patient indicated understanding of instructions. documented in this encounter Plan of Treatment Not on file documented as of this encounter Visit Diagnoses Not on filedocumented in this encounter
--- OUTSIDE RECORDS SUMMARY | 2024-07-19 14:11 | XMS_ITS ---
Author Organization Unknown Medications Date Medication Dosage DosageUnit StartDate StopDate StopReason Active DoseQuantity DoseUnit Dispense DispenseUnit Refills NdcCode DrugCode PharmacyId IsPrescription MappedMedication Srcstatus 05/20 00:00 :00 Aspir-Low 81 MG Tablet Delayed Release 1 [id number] 372 Taking 05/20 00:00 :00 Atorvastati n Calcium 80 MG Tablet 1 30 000 76334 705 Taking 05/20 00:00 :00 B-12 1000 MCG Tablet 05/03/2018 00:00:00 1 30 3 [id number] 5 201 P Taking 05/20 00:00 :00 CareTouch CPAP & BIPAP Hose MACHINE AND SUPPLIES 07/11/2018 00:00:00 1 P Taking 05/20 00:00 :00 HYDROcodone -Acetaminop hen 7.5-325 MG Tablet 11/27/2023 00:00:00 1 30 0 2440030 3 501 P Taking 05/20 00:00 :00 HYDROcodone -Acetaminop hen 7.5-325 MG Tablet 11/27/2023 00:00:00 1 [id number] 3 501 P Taking 05/20 00:00 :00 Lidocaine Plus 4 % Cream 12/12/2023 00:00:00 1 1 2 [id number] 6 301 P Taking 05/20 00:00 :00 Lisinopril 20 MG Tablet 1 30 [id number] 40 801 Taking 05/20 00:00 :00 Metoprolol Succinate ER 100 MG Tablet Extended Release 24 Hour 05/20/2024 00:00:00 1 90 Tablet 1 18024 459 710 P Start 05/20 00:00 :00 Metoprolol Succinate ER 25 MG Tablet Extended Release 24 Hour 0 [id number] 510 Stop 05/20 00:00 :00 Metoprolol Succinate ER 50 MG Tablet Extended Release 24 Hour 0 [id number] 610 Stop 05/20 00:00 :00 Metoprolol Succinate ER 25 MG Tablet Extended Release 24 Hour 1 [id number] 510 Taking 05/20 00:00 :00 Metoprolol Succinate ER 50 MG Tablet Extended Release 24 Hour 1 [id number] 610 Taking 05/20 00:00 :00 Multiple Vitamin - Capsule 1 30 Taki ng 05/20 00:00 :00 Omeprazole 20 MG Capsule Delayed Release 1 60 Capsule 0 [id number] 801 Taking 05/20 00:00 :00 Pregabalin 75 MG Capsule 03/01/2024 00:00:00 1 90 3 [id number] 0 061 P Taking 05/20 00:00 :00 PreserVisio n AREDS 2 - Capsule 1 24 [id number] 504 Taking 05/20 00:00 :00 Ranolazine ER 1000 MG Tablet Extended Release 12 Hour 1 60 [id number] 602 Taking 05/20 00:00 :00 Tamsulosin HCl 0.4 MG Capsule 1 30 Capsule 0 [id number] 805 Taking 05/11 00:00 :00 Tamsulosin HCl 0.4 MG Capsule 1 30 Capsule 0 [id number] 805 Start 05/11 00:00 :00 Tamsulosin HCl 0.4 MG Capsule 0 30 Capsule 0 [id number] 805 Stop 05/20 00:00 :00 valACYclovi r HCl 1 GM Tablet 1 30 0 [id number] 7 677 P Taking 05/20 00:00 :00 Vitamin D3 50 MCG (1999 UT) Tablet 05/03/2018 00:00:00 1 30 3 [id number] 6 840 P Taking
--- OUTSIDE RECORDS SUMMARY | 2024-07-19 14:11 | XMS_ITS | Encounter Summary ---
Author Organization [employer] Address [address] [place] [address] Care Team Providers Care Motor Electrician Name Role Phone Unavailable Primary Care Provider Unavailabl e Encounter Details Date Type Department Care Team (Late st Contact Info) Description 02/08/2020 Transcribed Document [facility] [place] [address] [place] [address] ProviderRaj MD [address] [place] [place], [place] [address] Social History Tobacco Use Types Packs/Day Years Used Date Smoking Tobacco: Never Assessed Sex and Gender Information Value Date Recorded Sex Assigned at Male 08/12/2021 6:27 PM CDT Legal Sex Male 7:15 PM CDT Gender Identity Male 08/12/2021 6:27 PM CDT Sexual Orientation Not on file documented as of this encounter Miscellaneous Notes * Cerner Conversion Note - Historical ProviderMD - 02/08/2020 12:55 AM LAB COORDINATOR Electronically signed by Lilly, [facility] Conversion Credit Rating Inspector Cerner at 05/31/2022 10:14 PM CDT documented in this encounter Plan of Treatment Not on file documented as of this encounter Visit Diagnoses Not on filedocumented in this encounter
--- OUTSIDE RECORDS SUMMARY | 2024-07-19 14:11 | XMS_ITS | Encounter Summary ---
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 ED Assessment Entered On: 02/08/2020 1:00 EST Performed On: 02/08/2020 0:58 EST by JU CLARK RN ED Quick Look Assessment Level of Consciousness : Alert, Awake Affect/Behavior : Appropriate, Calm, Cooperative JU CLARK RN - 02/08/2020 0:58 EST ED General-Functional Assess Information Obtained From : Patient Communication Barrier : None Primary Language : Faroese Any Spiritual/Cultural Needs or Requests : No Currently in Unsafe Situation : No JU CLARK RN - 02/08/2020 0:58 EST Social Habits Smoking Status : Never (less than 100 in lifetime; none in last 30 days) Smokeless Tobacco Status : Never Desires Tobacco Cessation Calc : 0 JU CLARK RN - 02/08/2020 0:58 EST Social History (As Of: 02/08/2020 01:00:19 EST) Tobacco: Never (less than 100 in lifetime) Smoking Status. (Last Updated: 02/07/2020 23:09:52 EST by RILEY PAGAN RN) Alcohol: Alcohol Use History No. Use in Last 12 Months: No. (Last Updated: 02/07/2020 23:09:55 EST by RILEY PAGAN RN) Substance Abuse: Drug Use Hx: No. Use in Last 12 Months: No. (Last Updated: 02/07/2020 23:09:59 EST by RILEY PAGAN RN) EENT Assessment EENT Assessment WDL : WD JU CLARK RN - 02/08/2020 0:58 EST Cardiovascular ASMT, ED Cardiovascular Assessment WDL : [facility] with exceptions (Comment: patient complains of fluctuating bp and left arm pain worsening over the last days [JU CLARK RN - 02/08/2020 0:58 EST] ) JU CLARK RN 02/08/2020 0:58 EST Pulses Grid Brachial Pulse, Left : 2+ normal Brachial Pulse, Right : 2+ normal Carotid Pulse, Left : 2+ normal Carotid Pulse, Right : 2+ normal Dorsalis Pedis Pulse, Left : 2+ normal Dorsalis Pedis Pulse, Right : 2+ normal Femoral Pulse, Left : 2+ normal Femoral Pulse, Right : 2+ normal Popliteal Pulse, Left : 2+ normal Popliteal Pulse, Right : 2+ normal Posterior Tibial Pulse, Left : 2+ normal Posterior Tibial Pulse, Right : 2+ normal Radial Pulse, Left : 2+ normal Radial Pulse, Right : 2+ normal JU CLARK RN - 02/08/2020 0:58 EST Respiratory Respiratory Assessment WDL : WD JU CLARK RN 02/08/2020 0:58 EST Breath Sounds Assessment Grid All Lobes Breath Sounds : Clear LUCINA : Clear LLL : Clear RUL : Clear RML : Clear RLL : Clear JU CLARK RN 02/08/2020 0:58 EST Gastrointestinal ED Gastrointestinal Assessment WDL : [facility] JU CLARK RN 02/08/2020 0:58 EST Genitourinary Assessment, ED Genitourinary Assessment WDL : [facility] JU CLARK RN - 02/08/2020 0:58 EST Musculoskeletal Musculoskeletal Assessment WDL : JU THAKKAR RN - 02/08/2020 0:58 EST Integumentary Assessment Integumentary Assessment WDL : JU THAKKAR RN - 02/08/2020 0:58 EST Neurologic ASMT, ED Neurologic Assessment WDL : WDL Neurological Symptoms : None Level of Consciousness : Alert, Awake Affect/Behavior : Appropriate, Calm, Cooperative Orientation : Oriented x 4 JU CLARK RN - 02/08/2020 0:58 EST documented in this encounter Plan of Treatment Not on file documented as of this encounter Visit Diagnoses Not on filedocumented in this encounter
--- OUTSIDE RECORDS SUMMARY | 2024-07-19 14:11 | XMS_ITS | Encounter Summary ---
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
--- OUTSIDE RECORDS SUMMARY | 2024-07-19 14:11 | XMS_ITS | Encounter Summary ---
Author Organization [employer] Address [address] [place] [address] Care Team Providers Care Inking Machine Tender Name Role Phone Unavailable Primary Care Provider Unavailabl e Encounter Details Date Type Department Care Team (Late st Contact Info) Description 02/07/2020 Transcribed Document [facility] Family Medicine [address] [place] [address] ProviderRaj MD [address] [place] [address] Social History Tobacco Use Types Packs/Day Years [...] - Historical ProviderMD - 02/07/2020 10:59 PM CLOUD CONSULTANT [place] Violence Assessment Entered On: 02/08/2020 1:00 EST Performed On: 02/08/2020 0:58 EST by JU CLARK RN [place] Violence Assessment [place] Violence Checklist of Symptoms : None [place] Violence Symptoms Subtotal : 0 [place] Violence Symptoms Indicator : Low risk (0) [place] Interventions : [place] precautions for safety used JU CLARK RN - 02/08/2020 0:58 EST documented in this encounter Plan of Treatment Not on file documented as of this encounter Visit Diagnoses Not on filedocumented in this encounter
--- OUTSIDE RECORDS SUMMARY | 2024-07-19 14:12 | XMS_ITS | Encounter Summary ---
Author Organization [employer] Address [address] [place] [address] Care Team Providers Care Distillery Manager Name Role Phone Unavailable Primary Care Provider Unavailabl e Encounter Details Date Type Department Care Team (Late st Contact Info) Description 02/08/2020 Transcribed Document [facility] Radiology [address] [place] [address] Daniel Huggins MD [facility] Dept. of Emergency Medicine [place] [id number] Social History Tobacco Use Types Packs/Day Years Used Date Smoking Tobacco: Never Assessed Sex and Gender Information Value Date Recorded Sex Assigned at Male 08/12/2021 6:27 PM CDT Legal Sex Male 7:15 PM CDT Gender Identity Male 08/12/2021 6:27 PM CDT Sexual Orientation Not on file documented as of this encounter Miscellaneous Notes * Cerner Conversion Note - Daniel Huggins MD - 02/08/2020 3:55 PM EST CR Chest 1 Vw Portable Ordered: 02/07/2020 Modified Reason for Exam: nausea 02/08/2020 11:34 02/08/2020 14:55 (DANIEL HUGGINS MD-EMR) Reviewed by Provider, No further action required documented in this encounter Plan of Treatment Not on file documented as of this encounter Visit Diagnoses Not on filedocumented in this encounter
--- OUTSIDE RECORDS SUMMARY | 2024-07-19 14:12 | XMS_ITS | Data Portability ---
Author Organization [facility] ED MichaelS M[place] CLOSED Address [address] [place] [address] Care Team Providers Care Food Order Expediter Name Role Phone Wilbert BARNARD Primary Care Provider Assessment Encounter Date Assessment Date Assessment LastModified by Organization Details LastModified Time 09/03/2020 09/03/2020 PSA order provided. Patient is not interested in medications or treatment for BPH symptoms. [email or web address] Not available 09/03/2020 15:53:42 01/26/2023 01/26/2023 PSA order provided. Patient is not interested in medications or treatment for BPH symptoms. Follow-up in 1 year. [email or web address] Not available 01/26/2023 15:27:44 08/10/2023 08/10/2023 Tamsulosin for medical management of lower urinary symptoms. Monitor PSA trend. [email or web address] Not available 08/13/2023 11:12:13 01/18/2024 01/18/2024 Tamsulosin for medical management of lower urinary symptoms. Continue to monitor PSA trend. [email or web address] Not available 01/29/2024 10:56:26 Plan of Treatment Reminders Order Date Submit Date Provider Last Modified By Organization Details Last Modified Time Details Appointments RECHECK 2024 01:15P Toni ZAMAN MD Not available Not available Not available Lab urinalysi s panel, auto 2023 024 [email or web address] [facility] [place] [facility] With [facility], [address] [place] [address] Dr [address], [place], [address], 08/13/2023 11:12:15 urinalysi s panel, auto 2022 023 4 [facility] Extended Services With [facility], [address] [place] [address] [place], [address], 01/29/2023 18:00:29 PSA, serum or plasma 2022 024 [email or web address], [address] [place], [address], 02/20/2024 10:06:41 urinalysi s panel, auto 2020 021 [email or web address] 4 [facility] Extended Services With [facility], [address] [place] [address] Dr Wise, [place], [address], 09/03/2020 15:53:43 Referral None recorded. Procedures None recorded. Surgeries None recorded. Imaging None recorded. Medication Orders None recorded. Patient TargetsNo targets recorded. Patient Instructions Encounter Date Encounter Id Patient Instructions Last Modified By Organization Details Last Modified Time 08/10/2023 [id number] learning about healthy weight [email or web address] Not available 08/13/2023 11:12:13 01/18/2024 [id number] learning about healthy weight [email or web address] Not available 01/29/2024 10:56:26 Reason for Referral None Reported. Results Created Date Observation Date Name Description Value Unit Range Abnormal Flag Note LastModifiedBy Organization Detail LastModifiedTime 09/04/1909/03/2020 urina lysis panel , auto Unknown Analyte Clean Catch Not Available [facility] With [address] [place], [address], 09/03/2020 14:53:53 09/04/1909/03/2020 urina lysis panel , auto Unknown Analyte Yellow Not Available [facility] Extended Services With [address] [place], [address], 09/03/2020 14:53:53 09/04/19 21 09/03/2020 urina lysis panel , auto Unknown Analyte Clear Not Available [facility] Extended Services With [address], [place], [address], 09/03/2020 14:53:53 09/04/19 21 09/03/2020 urina lysis panel , auto Unknown Analyte 1.020 Not Available [facility] Extended Services With [address], [place], [address], 09/03/2020 14:53:53 09/04/19 21 09/03/2020 urina lysis panel , auto Unknown Analyte 1.003- 1.035 Not Available [facility] Extended Services With [address] [place], [address], 09/03/2020 14:53:53 09/04/19 21 09/03/2020 urina lysis panel , auto Unknown Analyte 5.0 Not Available [facility] Extended Services With [address] [place], [address], 09/03/2020 14:53:53 09/04/19 21 09/03/2020 urina lysis panel , auto Unknown Analyte 5.0-8. 0 Not Available [facility] Extended Services With [address] [place], [address], 09/03/2020 14:53:53 09/04/19 21 09/03/2020 urina lysis panel , auto Unknown Analyte Negati ve Not Available [facility] Extended Services With [address] [place], [address], 09/03/2020 14:53:53 09/04/19 21 09/03/2020 urina lysis panel , auto Unknown Analyte Negati ve Not Available [facility] Extended Services With [address] [place], [address], 09/03/2020 14:53:53 09/04/1909/03/2020 urina lysis panel , auto Unknown Analyte Negati ve Not Available [facility] Extended Services With [address] [place], [address], 09/03/2020 14:53:53 09/04/19 21 09/03/2020 urina lysis panel , auto Unknown Analyte Negati ve Not Available [facility] Extended Services With [address] [place], [address], 09/03/2020 14:53:53 09/04/19 21 09/03/2020 urina lysis panel , auto Unknown Analyte Negati ve Not Available [facility] Extended Services With [address] [place], [address], 09/03/2020 14:53:53 09/04/1909/03/2020 urina lysis panel , auto Unknown Analyte Negati ve Not Available [facility] Extended Services With [address] [place], [address], 09/03/2020 14:53:53 09/04/1909/03/2020 urina lysis panel , auto Unknown Analyte Normal Not Available [facility] Extended Services With [address] [place], [address], 09/03/2020 14:53:53 09/04/1909/03/2020 urina lysis panel , auto Unknown Analyte Normal Not Available [facility] Extended Services With [address] [place], [address], 09/03/2020 14:53:53 09/04/1909/03/2020 urina lysis panel , auto Unknown Analyte Negati ve Not Available [facility] Extended Services With [address], [place], [address], 09/03/2020 14:53:53 09/04/1909/03/2020 urina lysis panel , auto Unknown Analyte Negati ve Not Available [facility] Extended Services With [address] [place], [address], 09/03/2020 14:53:53 09/04/1909/03/2020 urina lysis panel , auto Unknown Analyte Normal Not Available [facility] Extended Services With [address] [place], [address], 09/03/2020 14:53:53 09/04/1909/03/2020 urina lysis panel , auto Unknown Analyte Normal 1 mg/dl Not Available [facility] Extended Services With [address] [place], [address], 09/03/2020 14:53:53 09/04/1909/03/2020 urina lysis panel , auto Unknown Analyte Negati ve Not Available [facility] Extended Services With [address] [place], [address], 09/03/2020 14:53:53 09/04/1909/03/2020 urina lysis panel , auto Unknown Analyte Negati ve Not Available [facility] Extended Services With [address] [place], [address], 09/03/2020 14:53:53 09/04/1909/03/2020 urina lysis panel , auto Unknown Analyte Negati ve Not Available [facility] Extended Services With [address] [place], [address], 09/03/2020 14:53:53 09/04/19 21 09/03/2020 urina lysis panel , auto Unknown Analyte Negati ve Not Available [facility] Extended Services With [address], [place], [address], 09/03/2020 14:53:53 01/27/20 23 01/26/2023 urina lysis panel , auto Unknown Analyte Clean Catch Not Available [facility] Extended Services With [address], [place], [address], 01/26/2023 15:33:53 01/27/20 23 01/26/2023 urina lysis panel , auto Unknown Analyte Yellow Not Available [facility] Extended Services With [address], [place], [address], 01/26/2023 15:33:53 01/27/20 23 01/26/2023 urina lysis panel , auto Unknown Analyte Clear Not Available [facility] Extended Services With [address], [place], [address], 01/26/2023 15:33:53 01/27/20 23 01/26/2023 urina lysis panel , auto Unknown Analyte 1.020 Not Available [facility] Extended Services With [address], [place], [address], 01/26/2023 15:33:53 01/27/20 23 01/26/2023 urina lysis panel , auto Unknown Analyte 1.003- 1.035 Not Available [facility] Extended Services With [address], [place], [address], 01/26/2023 15:33:53 01/27/20 23 01/26/2023 urina lysis panel , auto Unknown Analyte 5.0 Not Available [facility] Extended Services With [address], [place], [address], 01/26/2023 15:33:53 01/27/20 23 01/26/2023 urina lysis panel , auto Unknown Analyte 5.0-8. 0 Not Available [facility] Extended Services With [address] [place], [place], [address], 01/26/2023 15:33:53 01/27/20 23 01/26/2023 urina lysis panel , auto Unknown Analyte Negati ve Not Available [facility] Extended Services With [address], [place], [address], 01/26/2023 15:33:53 01/27/20 23 01/26/2023 urina lysis panel , auto Unknown Analyte Negati ve Not Available [facility] Extended Services With [address], [place], [address], 01/26/2023 15:33:53 01/27/20 23 01/26/2023 urina lysis panel , auto Unknown Analyte Negati ve Not Available [facility] Extended Services With [address] [place], [address], 01/26/2023 15:33:53 01/27/20 23 01/26/2023 urina lysis panel , auto Unknown Analyte Negati ve Not Available [facility] Extended Services With [address] [place], [place], [address], 01/26/2023 15:33:53 01/27/20 23 01/26/2023 urina lysis panel , auto Unknown Analyte Negati ve Not Available [facility] Extended Services With [address] [place], [address], 01/26/2023 15:33:53 01/27/20 23 01/26/2023 urina lysis panel , auto Unknown Analyte Negati ve Not Available [facility] [place] [facility] With [address], [place], [address], 01/26/2023 15:33:53 01/27/20 23 01/26/2023 urina lysis panel , auto Unknown Analyte Normal Not Available [facility] Extended Services With [address], [place], [address], 01/26/2023 15:33:53 01/27/20 23 01/26/2023 urina lysis panel , auto Unknown Analyte Normal Not Available [facility] Extended Services With [address], [place], [address], 01/26/2023 15:33:53 01/27/20 23 01/26/2023 urina lysis panel , auto Unknown Analyte Negati ve Not Available [facility] Extended Services With [address], [place], [address], 01/26/2023 15:33:53 01/27/20 23 01/26/2023 urina lysis panel , auto Unknown Analyte Negati ve Not Available [facility] Extended Services With [address], [place], [address], 01/26/2023 15:33:53 01/27/20 23 01/26/2023 urina lysis panel , auto Unknown Analyte 1 mg/dl Not Available [facility] Extended Services With [address], [place], [address], 01/26/2023 15:33:53 01/27/20 23 01/26/2023 urina lysis panel , auto Unknown Analyte Normal 1 mg/dl Not Available [facility] Extended Services With [address], [place], [address], 01/26/2023 15:33:53 01/27/20 23 01/26/2023 urina lysis panel , auto Unknown Analyte Negati ve Not Available [facility] Extended Services With [address] [place], [address], 01/26/2023 15:33:53 01/27/20 23 01/26/2023 urina lysis panel , auto Unknown Analyte Negati ve Not Available [facility] Extended Services With [address] [place], [address], 01/26/2023 15:33:53 01/27/20 23 01/26/2023 urina lysis panel , auto Unknown Analyte Negati ve Not Available [facility] Extended Services With [address] [place], [address], 01/26/2023 15:33:53 01/27/20 23 01/26/2023 urina lysis panel , auto Unknown Analyte Negati ve Not Available [facility] Extended Services With [address] [place], [address], 01/26/2023 15:33:53 08/10/19 24 08/10/2023 urina lysis panel , auto Unknown Analyte Clean Catch Not Available [facility] Extended Services With [address] [place], [address], 08/10/2023 15:25:50 08/10/19 24 08/10/2023 urina lysis panel , auto Unknown Analyte Yellow Not Available [facility] Extended Services With [address] [place], [address], 08/10/2023 15:25:50 08/10/19 24 08/10/2023 urina lysis panel , auto Unknown Analyte Clear Not Available [facility] Extended Services With [address], [place], [address], 08/10/2023 15:25:50 08/10/19 24 08/10/2023 urina lysis panel , auto Unknown Analyte 1.020 Not Available [facility] Extended Services With [address], [place], [address], 08/10/2023 15:25:50 08/10/19 24 08/10/2023 urina lysis panel , auto Unknown Analyte 1.003- 1.035 Not Available [facility] Extended Services With [address] [place], [address], 08/10/2023 15:25:50 08/10/19 24 08/10/2023 urina lysis panel , auto Unknown Analyte 5.0 Not Available [facility] Extended Services With [address] [place], [address], 08/10/2023 15:25:50 08/10/19 24 08/10/2023 urina lysis panel , auto Unknown Analyte 5.0-8. 0 Not Available [facility] Extended Services With [address] [place], [address], 08/10/2023 15:25:50 08/10/19 24 08/10/2023 urina lysis panel , auto Unknown Analyte Negati ve Not Available [facility] Extended Services With [address] [place], [address], 08/10/2023 15:25:50 08/10/19 24 08/10/2023 urina lysis panel , auto Unknown Analyte Negati ve Not Available [facility] Extended Services With [address] [place], [place], [address], 08/10/2023 15:25:50 08/10/19 24 08/10/2023 urina lysis panel , auto Unknown Analyte Negati ve Not Available [facility] Extended Services With [address] [place], [address], 08/10/2023 15:25:50 08/10/19 24 08/10/2023 urina lysis panel , auto Unknown Analyte Negati ve Not Available [facility] Extended Services With [address] [place], [address], 08/10/2023 15:25:50 08/10/19 24 08/10/2023 urina lysis panel , auto Unknown Analyte Negati ve Not Available [facility] Extended Services With [address] [place], [address], 08/10/2023 15:25:50 08/10/19 24 08/10/2023 urina lysis panel , auto Unknown Analyte Negati ve Not Available [facility] Extended Services With [address] [place], [address], 08/10/2023 15:25:50 08/10/19 24 08/10/2023 urina lysis panel , auto Unknown Analyte Normal Not Available [facility] Extended Services With [address] [place], [address], 08/10/2023 15:25:50 08/10/19 24 08/10/2023 urina lysis panel , auto Unknown Analyte Normal Not Available [facility] Extended Services With [address] [place], [address], 08/10/2023 15:25:50 08/10/19 24 08/10/2023 urina lysis panel , auto Unknown Analyte Negati ve Not Available [facility] [place] Extended Services With [address] [place], [place], [address], 08/10/2023 15:25:50 08/10/19 24 08/10/2023 urina lysis panel , auto Unknown Analyte Negati ve Not Available [facility] Extended Services With [address] [place], [address], 08/10/2023 15:25:50 08/10/19 24 08/10/2023 urina lysis panel , auto Unknown Analyte 1 mg/dl Not Available [facility] Extended Services With [address] [place], [address], 08/10/2023 15:25:50 08/10/19 24 08/10/2023 urina lysis panel , auto Unknown Analyte Normal 1 mg/dl Not Available [facility] Extended Services With [address] [place], [address], 08/10/2023 15:25:50 08/10/19 24 08/10/2023 urina lysis panel , auto Unknown Analyte Negati ve Not Available [facility] Extended Services With [address] [place], [address], 08/10/2023 15:25:50 08/10/19 24 08/10/2023 urina lysis panel , auto Unknown Analyte Negati ve Not Available [facility] Extended Services With [address] [place], [address], 08/10/2023 15:25:50 08/10/19 24 08/10/2023 urina lysis panel , auto Unknown Analyte Negati ve Not Available [facility] [place] Extended Services With [address], [place], [address], 08/10/2023 15:25:50 08/10/19 24 08/10/2023 urina lysis panel , auto Unknown Analyte Negati ve Not Available [facility] Extended Services With [address], [place], [address], 08/10/2023 15:25:50 07/19/19 25 07/18/2024 urina lysis panel , auto Unknown Analyte Clean Catch Not Available [facility] Extended Services With [address] [place], [address], 07/18/2024 13:54:44 07/19/19 25 07/18/2024 urina lysis panel , auto Unknown Analyte Yellow Not Available [facility] Extended Services With [address], [place], [address], 07/18/2024 13:54:44 07/19/19 25 07/18/2024 urina lysis panel , auto Unknown Analyte Clear Not Available [facility] Extended Services With [address], [place], [address], 07/18/2024 13:54:44 07/19/19 25 07/18/2024 urina lysis panel , auto Unknown Analyte 1.020 Not Available [facility] Extended Services With [address] [place], [address], 07/18/2024 13:54:44 07/19/19 25 07/18/2024 urina lysis panel , auto Unknown Analyte 1.003 - 1.030 Not Available [facility] Extended Services With [address] [place], [address], 07/18/2024 13:54:44 07/19/19 25 07/18/2024 urina lysis panel , auto Unknown Analyte 5.0 Not Available [facility] Extended Services With [address] [place], [address], 07/18/2024 13:54:44 07/19/19 25 07/18/2024 urina lysis panel , auto Unknown Analyte 5.0 - 8.0 Not Available [facility] Extended Services With [address] [place], [address], 07/18/2024 13:54:44 07/19/19 25 07/18/2024 urina lysis panel , auto Unknown Analyte Negati ve Not Available [facility] Extended Services With [address] [place], [address], 07/18/2024 13:54:44 07/19/19 25 07/18/2024 urina lysis panel , auto Unknown Analyte Negati ve Not Available [facility] Extended Services With [address] [place], [address], 07/18/2024 13:54:44 07/19/19 25 07/18/2024 urina lysis panel , auto Unknown Analyte Negati ve Not Available [facility] Extended Services With [address] [place], [address], 07/18/2024 13:54:44 07/19/19 25 07/18/2024 urina lysis panel , auto Unknown Analyte Negati ve Not Available [facility] Extended Services With [address] [place], [address], 07/18/2024 13:54:44 07/19/19 25 07/18/2024 urina lysis panel , auto Unknown Analyte Negati ve Not Available [facility] Extended Services With [address] [place], [address], 07/18/2024 13:54:44 07/19/19 25 07/18/2024 urina lysis panel , auto Unknown Analyte Negati ve Not Available [facility] Extended Services With [address] [place], [address], 07/18/2024 13:54:44 07/19/19 25 07/18/2024 urina lysis panel , auto Unknown Analyte Normal Not Available [facility] Extended Services With [address] [place], [address], 07/18/2024 13:54:44 07/19/19 25 07/18/2024 urina lysis panel , auto Unknown Analyte Normal Not Available [facility] Extended Services With [address] [place], [address], 07/18/2024 13:54:44 07/19/19 25 07/18/2024 urina lysis panel , auto Unknown Analyte Negati ve Not Available [facility] Extended Services With [address] [place], [address], 07/18/2024 13:54:44 07/19/19 25 07/18/2024 urina lysis panel , auto Unknown Analyte Negati ve Not Available [facility] Extended Services With [address] [place], [address], 07/18/2024 13:54:44 07/19/19 25 07/18/2024 urina lysis panel , auto Unknown Analyte 1 mg/dL Not Available [facility] Extended Services With [address] [place], [address], 07/18/2024 13:54:44 07/19/19 25 07/18/2024 urina lysis panel , auto Unknown Analyte Normal Not Available [facility] Extended Services With [address] [place], [place], [address], 07/18/2024 13:54:44 07/19/19 25 07/18/2024 urina lysis panel , auto Unknown Analyte Negati ve Not Available [facility] Extended Services With [address] [place], [address], 07/18/2024 13:54:44 07/19/19 25 07/18/2024 urina lysis panel , auto Unknown Analyte Negati ve Not Available [facility] Extended Services With [address] [place], [address], 07/18/2024 13:54:44 07/19/19 25 07/18/2024 urina lysis panel , auto Unknown Analyte Negati ve Not Available [facility] Extended Services With [address] [place], [address], 07/18/2024 13:54:44 07/19/19 25 07/18/2024 urina lysis panel , auto Unknown Analyte Negati ve Not Available [facility] Extended Services With [address] [place], [address], 07/18/2024 13:54:44 Result Notes None recorded. Problems Name Problem SNOMED Code Status Onset Date Resolution Date Notes Provider Name and Address Organization Details Recorded Time Prostate specific antigen outside reference range [id number] Active 018 Murelene Jakob null, [facility] 8 15:37:57 Problem Notes None recorded. Procedures Surgical History Date Name Laterality Status Provider Name and Address Organization Details Recorded Time 08/14/19 20 Cholecystectomy completed Murelene Jakob [facility] 09/19/2019 13:36:11 06/13/19 19 Heart Surgery completed Murelene Jakob [facility] 02/28/2019 14:50:57 02/18/19 19 Evening/Weekend/Ho liday Services completed Ele Solomon [facility] 02/18/2018 09:36:39 Hernia Repair completed Brenda Garciat [facility] 02/23/2017 15:41:26 Imaging Results None recorded. Procedure Notes None recorded. Medical Equipment None Reported. Allergies No known drug allergies Medications Name Sig Start Date Stop Date Status Note LastModified by Organization Details LastModified Time promethazin e-DM 6.25 mg-15 mg/5 mL oral syrup take 1-1.5 tsp at bedtime, may repeat 1 tsp in 6 hrs if needed, causes drowsines s 02/28 completed Not Available Not Available Not Available prednisone 20 mg tablet Take 2 tablets every day by oral route for 5 days. 02/28 completed Not Available Not Available Not Available Tessalon Perles 100 mg capsule 1-2 capsules up to every 8 hrs as needed for cough 02/28 completed Not Available Not Available Not Available tamsulosin 0.4 mg capsule Take 1 capsule every day by oral route. active Not Available Not Available No t Available Cipro 500 mg tablet Take 1 tablet every 12 hours by oral route for 30 days. 04/06 completed Not Available Not Available Not Available tobramycin 0.3 % eye drops 1-2 drops right eye every 1 hr until improveme nt then every 4 hrs while awake, x1wk total 02/28 completed Not Available Not Available Not Available doxycycline hyclate 100 mg tablet Take 1 tablet twice a day by oral route for 10 days. 02/28 completed Not Available Not Available Not Available Lipitor active Not Available Not Avail able Not Available omeprazole active Not Available Not Av ailable Not Available lisinopril active Not Available Not Av ailable Not Available Prilosec 02/28 completed Not Available Not Available Not Available metoprolol succinate active Not Available Not Available No t Available multivitami n active Not Available Not Available Not Available ranolazine active Not Available Not Av ailable Not Available Eye Vitamin and Minerals active Not Available Not Available Not Available Vitals Date Recorded Body height Body mass index (BMI) Body weight Provider Name and Address Organization Details Last Updated DateTime 07/18/2024 185.42 cm 29 kg/m2 04495.32 g Brenda Robert [facility] 07/18/2024 13:54:08 Date Recorded Body height Body mass index (BMI) Body weight Provider Name and Address Organization Details Last Updated DateTime 08/10/2023 185.42 cm 28.5 kg/m2 75287.95 g Brenda Robert [facility] 08/10/2023 15:25:01 Date Recorded Body height Body mass index (BMI) Body weight Provider Name and Address Organization Details Last Updated DateTime 09/03/2020 185.42 cm 30.6 kg/m2 557070.43 g Deseriee [place] [facility] 09/03/2020 14:46:29 Date Recorded Body height Body mass index (BMI) Body weight Provider Name and Address Organization Details Last Updated DateTime 01/18/2024 185.42 cm 28.4 kg/m2 75632.36 g Brenda Robert [facility] 01/18/2024 16:10:43 Date Recorded Body height Body mass index (BMI) Body weight Provider Name and Address Organization Details Last Updated DateTime 01/26/2023 185.42 cm 30.6 kg/m2 788228.43 g Brenda Robert [facility] 01/26/2023 15:32:44 Social History Question Answer Notes LastModified by Organizat ion Details LastModified Time Tobacco Smoking Status Never Smoker Brenda Robert [facility] 02/23/2017 15:40:06 How Much Tobacco Do You Chew? None Information not available 02/28/2019 Marital Status Single Informatio n not available 02/23/2017 What Was The Date Of Your Most Recent Tobacco Screening? 07/18/2024 Information not available 07/18/2024 Has Tobacco Cessation Counseling Been Provided? Yes Information not available 02/23/2017 On What Date Was Tobacco Cessation Counseling Provided? 08/23/2018 Information not available 08/23/2018 Sex: Unknown Functional Status Question Answer Note LastModified by Organization D etails LastModified Time What is your level of alcohol consumption? None Information not available 02/23/2017 Mental Status None recorded. Family History Relationship Description Onset Age of this Age Resolved Age Notes LastModified by Organization Details LastModified Time Father Malignant neoplasm of prostate lesli Not available 2017 15:38:11 Mother Family history of malignant neoplasm lesli Not available 2017 15:38:35 Medical History Condition Response Kidney Stones Y Hypertension Y Past Encounters Encounter ID Performer Location Encounter Start Date Encounter Closed Date Diagnosis/Indication Diagnosis SNOMED-CT Code Diagnosis ICD10 Code Diagnosis Note [id number] ASHTYN ZAMAN MD [facility] [address] [address] 02/23/2017 15:23:32 03/06/2017 10:17:21 Prostate specific antigen above reference range 883848723 R97.20 Prostatitis 1521886 N41. 9 [id number] ASHTYN ZAMAN MD [facility] [address] [address] 04/06/2017 13:23:26 04/13/2017 09:39:00 Prostate specific antigen above reference range 356413107 R97.20 [id number] ASHTYN ZAMAN MD [facility] [address] [address] 09/21/2017 13:41:01 09/25/2017 07:56:46 Benign prostatic hyperplasia with outflow obstruction 967877613 N40.1 [id number] JAMIE CANADA APRN [facility] [address] [place] [address] 02/18/2018 09:15:40 02/18/2018 14:49:16 Bacterial conjunctivitis 262217325 H10.9 concern for severity, use tobramycin gtt as written every 1 hr until feels better then every 4 hrs. call his eye MD tomorrow for recheck given steroid PO for bronchitis may help this as well as doxycyclin e for skin structure as well as his bronchitis . Acute bronchitis 2034132 2 J20.9 Take all medication s as prescribed .Increase fluids and rest;warm salt water gargles, throat lozenges/s pray may benefit;us e of cool mist vaporizer or humidifier encouraged ;Vicks menthol rub may improve nasal stuffiness ;Please return if no improvemen t over several days or if any worsening/ concerns. [id number] ASHTYN ZAMAN MD [facility] [address] [place] [address] 8 04/12/2018 13:38:34 04/23/2018 10:40:40 Prostate specific antigen above reference range 486198000 R97.20 [id number] ASHTYN ZAMAN MD [facility] [address] [place] [address] 8 08/23/2018 14:14:37 09/03/2018 08:27:19 Benign prostatic hyperplasia with outflow obstruction 617797409 N40.1 [id number] ASHTYN ZAMAN MD [facility] [address] [place] [address] 8 02/28/2019 13:26:33 02/28/2019 14:18:01 Benign prostatic hyperplasia with outflow obstruction 599704633 N40.1 Prostate s pecific antigen above reference range 945366470 R97.20 [id number] ASHTYN ZAMAN MD [facility] [address] [place] [address] 8 09/19/2019 13:27:50 09/20/2019 08:20:50 Prostate specific antigen above reference range 409775908 R97.20 [id number] ASHTYN ZAMAN MD [facility] [address] [place] [address] 8 03/19/2020 14:10:49 03/24/2020 14:57:46 Benign prostatic hyperplasia with outflow obstruction 604609365 N40.1 Prostate s pecific antigen above reference range 649121970 R97.20 Family his tory of malignant neoplasm of prostate 776995535 Z80.42 [id number] ASHTYN ZAMAN MD [facility] [address] [place] [address] 8 09/03/2020 14:25:07 09/04/2020 14:34:40 Prostate specific antigen above reference range 351572395 R97.20 Benign pro static hyperplasia with outflow obstruction 914794398 N40.1 [id number] ASHTYN ZAMAN MD [facility] [address] [place] [address] 8 01/26/2023 15:18:46 01/26/2023 16:33:04 Prostate specific antigen above reference range 696029533 R97.20 Benign pro static hyperplasia with outflow obstruction 986253150 N40.1 Screening for malignant neoplasm of prostate 674643335 Z12.5 [id number] ASHTYN ZAMAN MD [facility] [address] [address] 08/10/2023 14:23:25 08/10/2023 16:36:11 Benign prostatic hyperplasia with outflow obstruction 184621997 N40.1 Nocturia 762654385 R35.1 [id number] ASHTYN ZAMAN MD [facility] [address] [address] 01/18/2024 16:07:40 01/30/2024 04:38:12 Benign prostatic hyperplasia with outflow obstruction 843851024 N40.1 Nocturia 065066496 R35.1 [id number] ASHTYN ZAMAN MD [facility] [address] ,[place] [address] 07/18/2024 13:34:00 07/18/2024 16:02:16 Benign prostatic hyperplasia with outflow obstruction 143369931 N13.8 N40.1 - Continue tamsulosin . - Monitor symptoms and effects. Prostate s pecific antigen above reference range 662255288 R97.20 - Monitor PSA levels. - Schedule PSA test in 6 months. Health Concerns Section Related Observation LastModified by Organization Detai ls LastModified Time None Recorded Concern Status LastModified by Organization Details LastModified Time None Recorded Advance Directives Directive None Recorded Payers Insurance Date Sequence Insurance Name Policy Number Policy Chacon Covered Member ID Chacon Member ID Guarantor Name 02/27/2017 1 *SELF PAY* Wi kassandra Luke 07/18/2024 1 [place] [id number] Manish Luke [id number] Manish Luke 07/18/2024 1 [place] HAR[place] (MEDICARE REPLACEMENT REGIONAL PPO) [id number] Manish Luke [id number] Manish Luke 07/18/2024 GENERIC INSURANCE - MOVED-HOLD Manish Luke 07/18/2024 1 [id number] (MEDICARE REPLACEMENT/AD VANTAGE - PPO) Manish Luke [id number] Manish Luke Notes Date Note Type Note Provider Name and Address Organization Details Recorded Time 09/03/2020 text/html 64-year-old male in the office for follow-up evaluation of raised PSA and family history of prostate carcinoma. He voids 6-8 times daily without nocturia. He has morning time hesitancy. No gross hematuria or dysuria. PSA from 03/09/20 was normal at 3.6. PSA: 02/2020 - 3.6 09/2019 - 4.08/2018 - 3.2 ASHTYN ZAMAN MD [address] [place] [address], [phone], [facility] 09/03/2020 15:54:09 01/26/2023 text/html 67-year-old male in the office for follow-up evaluation of raised PSA and family history of prostate carcinoma. Occasional hesitancy. Occasional urgency. Daytime frequency 8 times. Nocturia 0-1 times. No gross hematuria. No dysuria. PSA: August 2020-3.February - 3.19 September 2019 - .09 September 2018 - 3.2 ASHTYN ZAMAN MD [address] [place] [address], [phone], [facility] 01/29/2023 10:54:51 08/10/2023 text/html 67-year-old male in the office for follow-up evaluation of raised PSA and family history of prostate carcinoma. Occasional hesitancy. Occasional urgency. Daytime frequency 10 times. Nocturia 0-1 times. No gross hematuria. No dysuria. He complains of postvoid dribbling. He is taking tamsulosin. PSA: January 2023-4.10 September 2020-3.February - 3.19 September 2019 - .09 September 2018 - 3.2 ASHTYN ZAMAN MD [address] [place] [address], [phone], [facility] 08/13/2023 11:12:27 01/18/2024 text/html 68-year-old male in the office for follow-up evaluation of raised PSA and family history of prostate carcinoma. No gross hematuria. No dysuria. He is taking tamsulosin. No hesitancy or intermittency. He takes tamsulosin. PSA: September 2023- 4.10 February 2023-4.10 September 2020-3.February - 3.19 September 2019 - 4.09 September 2018 - 3.2 ASHTYN ZAMAN MD [address] [place], [phone], [facility] 01/29/2024 10:56:39
--- OUTSIDE RECORDS SUMMARY | 2024-07-19 14:12 | XMS_ITS | Clinical Summary ---
Author Organization [email or web address] Address [address] [place] [address] Care Team Providers Care Real Estate Professor Name Role Phone Unavailable Primary Care Provider Unavailabl e Social History Tobacco Use Types Packs/Day Years Used Date Smoking Tobacco: Never Assessed Sex and Gender Information Value Date Recorded Sex Assigned at Male 08/12/2021 6:27 PM CDT Legal Sex Male 7:15 PM CDT Gender Identity Male 08/12/2021 6:27 PM CDT Sexual Orientation Not on file Plan of Treatment Not on file
--- OUTSIDE RECORDS SUMMARY | 2024-07-19 14:12 | XMS_ITS | Encounter Summary ---
Author Organization [facility] [employer] Address [address] [place] [address] Care Team Providers Care Field Service Representative Name Role Phone Unavailable Primary Care Provider Unavailabl e Encounter Details Date Type Department Care Team (Late st Contact Info) Description 02/08/2020 Transcribed Document [facility] [address] [place] [address] ProviderRaj MD [address] [place] [address] Social History Tobacco Use Types Packs/Day Years Used Date Smoking Tobacco: Never Assessed Sex and Gender Information Value Date Recorded Sex Assigned at Male 08/12/2021 6:27 PM CDT Legal Sex Male 7:15 PM CDT Gender Identity Male 08/12/2021 6:27 PM CDT Sexual Orientation Not on file documented as of this encounter Miscellaneous Notes * Cerner Conversion Note - Raj ProviderMD - 02/08/2020 12:57 [place] [address] MANISH BRAVO II :1955 Visit Time:02/07/2020 Your Visit Summary Your Care Team Primary Provider: ESDRAS GARCIA Secondary Provider: Your Diagnosis Arm pain-swelling Back pain HTN - Hypertension Hypertension Left arm pain Paresthesia Thrombocytopenia Medical Information You may obtain a copy of your Emergency Department visit from Medical Records by calling the hospital phone number listed above and asking to be directed to the Medical Records Department. If you had special tests, such as EKG???s or X-rays, the interpretation of your tests given to you by the Emergency Department Physician is a preliminary report. Some fractures and illnesses fail to show up on preliminary tests. These will be reviewed again and we will call you if there are any new suggestions. If your symptoms continue notify your physician. After you leave, you should follow the instructions provided. What to do next Follow-Up Appointments Follow Up with Return to emergency department When Within As needed Comments Return if condition worsens, if you have chest pain, trouble breathing, vomiting, dizziness, fainting, etc. Make sure you follow-up with your primary care physician and heart doctor for further evaluation and management of your symptoms, you may need outpatient stress test/echocardiogram, etc. Follow Up with AARON BARNARD When Within 2 to 3 days Where: [address] [facility] [address] [place] [address] [employer] (1) Allergies No Known Medication Allergies Immunizations This Visit No Immunizations Found Medications What How Much When Instructions Next Dose aspirin (aspirin 81 mg oral delayed release tablet) 1 Tablet(s) Oral Every Day atorvastatin (Lipitor 80 mg oral tablet) 1 Tablet(s) Oral Every Day lisinopril 10 Milligram(s) Oral Every Day metoprolol (Metoprolol Succinate ER 25 mg oral tablet, extended release) 1 Tablet(s) Oral Two Times A Day multivitamin 1 Tablet(s) Oral Every Day omeprazole (omeprazole 20 mg oral delayed release capsule) 1 Capsule(s) Oral Every Day The home medications listed are only as accurate as the information you provided. Please continue taking all of your medications prescribed by your Primary Care Provider unless specifically told to change or discontinue the medication. Please direct any questions regarding your home medications to your Primary Care Provider. Take your medications faithfully. Do NOT skip medication. Do NOT stop taking medications without the direction of a physician. Carry a list of your medications with you at all times, and take this medication list with you to your first follow up visit. Report any side effects. Avoid herbal remedies unless discussed with your physician. As part of your treatment plan, your physician may have prescribed a limited course of a controlled substance. This medication may be given to help people with moderate or severe pain or for other medical conditions, but there are risks involved with treatment. Common side effects may include nausea, constipation, drowsiness, sweating, itching, dry mouth, and rash. More serious side effects may include cognitive and motor impairment, like problems with thinking, concentrating, alertness, and movement (e.g. slowed reflexes), and driving and operating heavy machinery can be dangerous. It is important for you to talk to your physician if you have these side effects or questions. These controlled substances can produce physical dependence and be habit-forming if taken for an extended period of time, which means that the body has gotten used to them and may experience withdrawal symptoms if they are abruptly stopped. Withdrawal symptoms can include runny nose, sweating, goose bumps, diarrhea, abdominal cramping, rapid heartbeat, difficulty sleeping, and nervousness. Please dispose of unused and medications per pharmacy guidance. Test Results Laboratory or Other Results This Visit (last charted value for your 02/07/2020 visit) Hematology 02/07/2020 11:32 PM WBC: 5.6 K/uL -- Normal range between ( 3.9 and 10.0 ) RBC: 4.31 Million/uL -- Normal range between ( 4.63 and 6.08 ) Hct: 39.6 % -- Normal range between ( 40.1 and 51.0 ) Hgb: 14.3 Gram/dL -- Normal range between ( 13.7 and 17.5 ) Platelet Count: 137 K/uL -- Normal range between ( 163 and 369 ) MCH: 33.2 pg -- Normal range between ( 25.6 and 32.2 ) MCHC: 36.1 Gram/dL -- Normal range between ( 32.3 and 36.5 ) MCV: 91.9 fL -- Normal range between ( 79.0 and 94.8 ) Slide Review: No Eos %: 2.7 % -- Normal range between ( 1.0 and 7.0 ) [place] #: 0.62 K/uL -- Normal range between ( 0.24 and 0.82 ) Eos #: 0.15 K/uL -- Normal range between ( 0.04 and 0.54 ) [place] %: 11.1 % -- Normal range between ( 4.7 and 12.5 ) Baso %: 0.7 % -- Normal range between ( 0.0 and 1.0 ) Baso #: 0.04 K/uL -- Normal range between ( 0.01 and 0.08 ) RDW: 12.0 % -- Normal range between ( 11.6 and 14.4 ) Neut %: 67.6 % -- Normal range between ( 34.0 and 71.0 ) Neut #: 3.80 K/uL -- Normal range between ( 1.56 and 6.13 ) Lymph %: 17.5 % -- Normal range between ( 19.3 and 53.0 ) Lymph #: 0.98 K/uL -- Normal range between ( 1.18 and 3.74 ) MPV: 10.1 fL -- Normal range between ( 9.4 and 12.4 ) IG#: 0 x10(3)/uL IG%: 0 % -- Normal range between ( 0 and 1 ) General Chemistry 02/07/2020 11:32 PM Creatinine Level: 1.13 mg/dL -- Normal range between ( 0.70 and 1.30 ) Sodium Level: 140 mmol/L -- Normal range between ( 136 and 146 ) Potassium Level: 4.2 mmol/L -- Normal range between ( 3.5 and 5.1 ) Chloride Level: 108 mmol/L -- Normal range between ( 102 and 112 ) Carbon Dioxide Level: 26 mmol/L -- Normal range between ( 21 and 32 ) Anion Gap: 10 -- Normal range between ( 9 and 20 ) Bilirubin Total: 1.3 mg/dL -- Normal range between ( 0.2 and 1.3 ) A/G Ratio: 1.6 -- Normal range between ( 1.1 and 2.5 ) ALT: 42 Units/Liter -- Normal range between ( 12 and 78 ) AST: 25 Units/Liter -- Normal range between ( 5 and 37 ) Globulin: 2.4 Gram/dL -- Normal range between ( 1.5 and 4.5 ) Alk Phos: 93 Units/Liter -- Normal range between ( 27 and 136 ) Bun/Creatinine: 15.0 -- Normal range between ( 8.0 and 20.0 ) Calcium Level: 8.7 mg/dL -- Normal range between ( 8.5 and 10.1 ) eGFR : >60 mL/min/1.73m2 eGFR NonAfrican: >60 mL/min/1.73m2 Glucose Level: 129 mg/dL -- Normal range between ( 74 and 106 ) Blood Urea Nitrogen: 17 mg/dL -- Normal range between ( 7 and 22 ) Protein Total: 6.3 Gram/dL -- Normal range between ( 6.4 and 8.2 ) Albumin Level: 3.9 Gram/dL -- Normal range between ( 3.4 and 5.0 ) Cardiac Specific Markers 02/07/2020 11:32 PM Troponin I Ultra: <0.015 ng/mL -- Normal range between ( 0.015 and 0.045 ) ProBNP: 137 pg/mL -- Normal range between ( 0 and 125 ) Endocrinology 02/07/2020 11:32 PM TSH: 2.550 mcInt Units/mL -- Normal range between ( 0.358 and 3.740 ) T4 Total: 7.7 mcg/mL -- Normal range between ( 4.5 and 12.1 ) [employer] Thrombocytopenia Thrombocytopenia is a condition in which you have a low number of platelets in your blood. Platelets are also called thrombocytes. Platelets are tiny cells in the blood. When you bleed, they clump together at the cut or injury to stop the bleeding. This is called blood clotting. Not having enough platelets can cause bleeding problems. Some cases of thrombocytopenia are mild while others are more severe. What are the causes? This condition may be caused by: ??? Decreased production of platelets. This may be caused by: ? Aplastic anemia. This is when your bone marrow stops making blood cells. ? Cancer in the bone marrow. ? Certain medicines, including chemotherapy. ? Infection in the bone marrow. ? Drinking a lot of alcohol. ??? Increased destruction of platelets. This may be caused by: ? Certain immune diseases. ? Certain medicines. ? Certain blood clotting disorders. ? Certain inherited disorders. ? Certain bleeding disorders. ? . ? Having an enlarged spleen (hypersplenism). In hypersplenism, the spleen gathers up platelets from circulation. This means that the platelets are not available to help with blood clotting. The spleen can be enlarged because of cirrhosis or other conditions. What are the signs or symptoms? Symptoms of this condition are the result of poor blood clotting. They will vary depending on how low the platelet counts are. Symptoms may include: ??? Abnormal bleeding. ??? Nosebleeds. ??? Heavy menstrual periods. ??? Blood in the urine or stool (feces). ??? A purplish discoloration in the skin (purpura). ??? Bruising. ??? A rash that looks like pinpoint, purplish-red spots (petechiae) on the skin and mucous membranes. How is this diagnosed? This condition may be diagnosed with blood tests and a physical exam. Sometimes, a sample of bone marrow may be removed to look for the original cells (megakaryocytes) that make platelets. Other tests may be needed depending on the cause. How is this treated? Treatment for this condition depends on the cause. Treatment options may include: ??? Treatment of another condition that is causing the low platelet count. ??? Medicines to help protect your platelets from being destroyed. ??? A replacement (transfusion) of platelets to stop or prevent bleeding. ??? Surgery to remove the spleen. Follow these instructions at home: Activity ??? Avoid activities that could cause injury or bruising, and follow instructions about how to prevent falls. ??? Take extra care not to cut yourself when you shave or when you use scissors, needles, knives, and other tools. ??? Take extra care to protect yourself from ruelas when ironing or cooking. General instructions ??? Check your skin and the inside of your mouth for bruising or bleeding as told by your health care provider. ??? Check your spit (sputum), urine, and stool for blood as told by your health care provider. ??? Do not drink alcohol. ??? Take [id number]-dbwpazr and prescription medicines only as told by your health care provider. ??? Do not take any medicines that have aspirin or NSAIDs in them. These medicines can thin your blood and cause you to bleed more easily. ??? Tell all your health care providers, including dentists and eye doctors, about your condition. Contact a health care provider if you have: ??? Unexplained bruising. Get help right away if you have: ??? Active bleeding from anywhere on your body. ??? Blood in your sputum, urine, or stool. Summary ??? Thrombocytopenia is a condition in which you have a low number of platelets in your blood. ??? Platelets are needed for blood clotting. ??? Symptoms of this condition are the result of poor blood clotting and may include abnormal bleeding, nosebleeds, and bruising. ??? This condition may be diagnosed with blood tests and a physical exam. ??? Treatment for this condition depends on the cause. This information is not intended to replace advice given to you by your health care provider. Make sure you discuss any questions you have with your health care provider. Document Released: 01/30/2006 Document Revised: 11/01/2018 Document Reviewed: 11/01/2018 [employer] Patient Education ?? 2020 [employer]. Paresthesia Paresthesia is an abnormal burning or prickling sensation. It is usually felt in the hands, arms, legs, or feet. However, it may occur in any part of the body. Usually, paresthesia is not painful. It may feel like: ??? Tingling or numbness. ??? Buzzing. ??? Itching. Paresthesia may occur without any clear cause, or it may be caused by: ??? Breathing too quickly (hyperventilation). ??? Pressure on a nerve. ??? An underlying medical condition. ??? Side effects of a medication. ??? Nutritional deficiencies. ??? Exposure to toxic chemicals. Most people experience temporary (transient) paresthesia at some time in their lives. For some people, it may be long-lasting (chronic) because of an underlying medical condition. If you have paresthesia that lasts a long time, you may need to be evaluated by your health care provider. Follow these instructions at home: Alcohol use ??? Do not drink alcohol if: ? Your health care provider tells you not to drink. ? You are , may be , or are planning to become . ??? If you drink alcohol: ? Limit how much you use to: ? 0???1 drink a day for women. ? 0???2 drinks a day for men. ? Be aware of how much alcohol is in your drink. In the [place] one drink equals one 12 oz bottle of beer (355 mL), one 5 oz glass of wine (148 mL), or one 1?? oz glass of hard liquor (44 mL). Nutrition ??? Eat a healthy diet. This includes: ? Eating foods that are high in fiber, such as fresh fruits and vegetables, whole grains, and beans. ? Limiting foods that are high in fat and processed sugars, such as fried or sweet foods. General instructions ??? Take txmo-dsb-hdqfnho and prescription medicines only as told by your health care provider. ??? Do not use any products that contain nicotine or tobacco, such as cigarettes and e-cigarettes. These can keep blood from reaching damaged nerves. If you need help quitting, ask your health care provider. ??? If you have diabetes, work closely with your health care provider to keep your blood sugar under control. ??? If you have numbness in your feet: ? Check every day for signs of injury or infection. Watch for redness, warmth, and swelling. ? Wear padded socks and comfortable shoes. These help protect your feet. ??? Keep all follow-up visits as told by your health care provider. This is important. Contact a health care provider if you: ??? Have paresthesia that gets worse or does not go away. ??? Have a burning or prickling feeling that gets worse when you walk. ??? Have pain, cramps, or dizziness. ??? Develop a rash. Get help right away if you: ??? Feel weak. ??? Have trouble walking or moving. ??? Have problems with speech, understanding, or vision. ??? Feel confused. ??? Cannot control your bladder or bowel movements. ??? Have numbness after an injury. ??? Develop new weakness in an arm or leg. ??? Faint. Summary ??? Paresthesia is an abnormal burning or prickling sensation that is usually felt in the hands, arms, legs, or feet. It may also occur in other parts of the body. ??? Paresthesia may occur without any clear cause, or it may be caused by breathing too quickly (hyperventilation), pressure on a nerve, an underlying medical condition, side effects of a medication, nutritional deficiencies, or exposure to toxic chemicals. ??? If you have paresthesia that lasts a long time, you may need to be evaluated by your health care provider. This information is not intended to replace advice given to you by your health care provider. Make sure you discuss any questions you have with your health care provider. Document Released: 01/20/2003 Document Revised: 02/25/2019 Document Reviewed: 02/08/2018 [employer] Patient Education ?? 2020 [employer] Hypertension, Adult High blood pressure (hypertension) is when the force of blood pumping through the arteries is too strong. The arteries are the blood vessels that carry blood from the heart throughout the body. Hypertension forces the heart to work harder to pump blood and may cause arteries to become narrow or stiff. Untreated or uncontrolled hypertension can cause a heart attack, heart failure, a stroke, kidney disease, and other problems. A blood pressure reading consists of a higher number over a lower number. Ideally, your blood pressure should be below 120/80. The first ( top ) number is called the systolic pressure. It is a measure of the pressure in your arteries as your heart beats. The second ( bottom ) number is called the diastolic pressure. It is a measure of the pressure in your arteries as the heart relaxes. What are the causes? The exact cause of this condition is not known. There are some conditions that result in or are related to high blood pressure. What increases the risk? Some risk factors for high blood pressure are under your control. The following factors may make you more likely to develop this condition: ??? Smoking. ??? Having type 2 diabetes mellitus, high cholesterol, or both. ??? Not getting enough exercise or physical activity. ??? Being overweight. ??? Having too much fat, sugar, calories, or salt (sodium) in your diet. ??? Drinking too much alcohol. Some risk factors for high blood pressure may be difficult or impossible to change. Some of these factors include: ??? Having chronic kidney disease. ??? Having a family history of high blood pressure. ??? Age. Risk increases with age. ??? Race. You may be at higher risk if you are . ??? Gender. Men are at higher risk than women before age 45. After age 65, women are at higher risk than men. ??? Having obstructive sleep apnea. ??? Stress. What are the signs or symptoms? High blood pressure may not cause symptoms. Very high blood pressure (hypertensive crisis) may cause: ??? Headache. ??? Anxiety. ??? Shortness of breath. ??? Nosebleed. ??? Nausea and vomiting. ??? Vision changes. ??? Severe chest pain. ??? Seizures. How is this diagnosed? This condition is diagnosed by measuring your blood pressure while you are seated, with your arm resting on a flat surface, your legs uncrossed, and your feet flat on the floor. The cuff of the blood pressure monitor will be placed directly against the skin of your upper arm at the level of your heart. It should be measured at least twice using the same arm. Certain conditions can cause a difference in blood pressure between your right and left arms. Certain factors can cause blood pressure readings to be lower or higher than normal for a short period of time: ??? When your blood pressure is higher when you are in a health care provider's office than when you are at home, this is called white coat hypertension. Most people with this condition do not need medicines. ??? When your blood pressure is higher at home than when you are in a health care provider's office, this is called masked hypertension. Most people with this condition may need medicines to control blood pressure. If you have a high blood pressure reading during one visit or you have normal blood pressure with other risk factors, you may be asked to: ??? Return on a different day to have your blood pressure checked again. ??? Monitor your blood pressure at home for 1 week or longer. If you are diagnosed with hypertension, you may have other blood or imaging tests to help your health care provider understand your overall risk for other conditions. How is this treated? This condition is treated by making healthy lifestyle changes, such as eating healthy foods, exercising more, and reducing your alcohol intake. Your health care provider may prescribe medicine if lifestyle changes are not enough to get your blood pressure under control, and if: ??? Your systolic blood pressure is above 130. ??? Your diastolic blood pressure is above 80. Your personal target blood pressure may vary depending on your medical conditions, your age, and other factors. Follow these instructions at home: Eating and drinking ??? Eat a diet that is high in fiber and potassium, and low in sodium, added sugar, and fat. An example eating plan is called the DASH (Dietary Approaches to Stop Hypertension) diet. To eat this way: ? Eat plenty of fresh fruits and vegetables. Try to fill one half of your plate at each meal with fruits and vegetables. ? Eat whole grains, such as whole-wheat pasta, brown rice, or whole-grain bread. Fill about one fourth of your plate with whole grains. ? Eat or drink low-fat dairy products, such as skim milk or low-fat yogurt. ? Avoid fatty cuts of meat, processed or cured meats, and poultry with skin. Fill about one fourth of your plate with lean proteins, such as fish, chicken without skin, beans, eggs, or tofu. ? Avoid pre-made and processed foods. These tend to be higher in sodium, added sugar, and fat. ??? Reduce your daily sodium intake. Most people with hypertension should eat less than 1,500 mg of sodium a day. ??? Do not drink alcohol if: ? Your health care provider tells you not to drink. ? You are , may be , or are planning to become . ??? If you drink alcohol: ? Limit how much you use to: ? 0???1 drink a day for women. ? 0???2 drinks a day for men. ? Be aware of how much alcohol is in your drink. In the [place] one drink equals one 12 oz bottle of beer (355 mL), one 5 oz glass of wine (148 mL), or one 1?? oz glass of hard liquor (44 mL). Lifestyle ??? Work with your health care provider to maintain a healthy body weight or to lose weight. Ask what an ideal weight is for you. ??? Get at least 30 minutes of exercise most days of the week. Activities may include walking, swimming, or biking. ??? Include exercise to strengthen your muscles (resistance exercise), such as Pilates or lifting weights, as part of your weekly exercise routine. Try to do these types of exercises for 30 minutes at least 3 days a week. ??? Do not use any products that contain nicotine or tobacco, such as cigarettes, e-cigarettes, and chewing tobacco. If you need help quitting, ask your health care provider. ??? Monitor your blood pressure at home as told by your health care provider. ??? Keep all follow-up visits as told by your health care provider. This is important. Medicines ??? Take jyhj-jrd-yieyeem and prescription medicines only as told by your health care provider. Follow directions carefully. Blood pressure medicines must be taken as prescribed. ??? Do not skip doses of blood pressure medicine. Doing this puts you at risk for problems and can make the medicine less effective. ??? Ask your health care provider about side effects or reactions to medicines that you should watch for. Contact a health care provider if you: ??? Think you are having a reaction to a medicine you are taking. ??? Have headaches that keep coming back (recurring). ??? Feel dizzy. ??? Have swelling in your ankles. ??? Have trouble with your vision. Get help right away if you: ??? Develop a severe headache or confusion. ??? Have unusual weakness or numbness. ??? Feel faint. ??? Have severe pain in your chest or abdomen. ??? Vomit repeatedly. ??? Have trouble breathing. Summary ??? Hypertension is when the force of blood pumping through your arteries is too strong. If this condition is not controlled, it may put you at risk for serious complications. ??? Your personal target blood pressure may vary depending on your medical conditions, your age, and other factors. For most people, a normal blood pressure is less than 120/80. ??? Hypertension is treated with lifestyle changes, medicines, or a combination of both. Lifestyle changes include losing weight, eating a healthy, low-sodium diet, exercising more, and limiting alcohol. This information is not intended to replace advice given to you by your health care provider. Make sure you discuss any questions you have with your health care provider. Document Released: 01/30/2006 Document Revised: 10/10/2018 Document Reviewed: 10/10/2018 [employer] Patient Education ?? 2020 [employer]. Emergency Awareness and Preventative Care STROKE is an EMERGENCY Every Minute Counts Act FAST and Check for these signs: FACE Does the face look uneven? ARM Does one arm drift down? SPEECH Does their speech sound strange? TIME Call at any sign of stroke Stroke Risk Factors Atrial Fibrillation (irregular heartbeat) Diabetes Family history of stroke Heart Disease Heavy alcohol use High Blood Pressure High Cholesterol Physical inactivity and obesity Smoking Cigarette Smoking The facts are clear, cigarette smoking will shorten your life. Smoking can cause many illnesses along the way. As a healthcare provider, we recommend that you stop smoking. Assistance with quitting is available by contacting 3-062-HAIJ-NOW. This is a free resource providing counseling, support, and referral. Or you may contact your personal physician. National Suicide Prevention Lifeline: The National Suicide Prevention Lifeline is a national network of local crisis centers that provides free and confidential emotional support to people in suicidal crisis or emotional distress 24 hours a day, 7 days a week. Don't Wait! Stop a Heart Attack Before it Starts What is a heart attack? A heart attack is damage or to a part of the heart from severely decreased or lack of blood flow to the heart. Over time, arteries can become narrow from the buildup of fat and cholesterol, which is called plaque. The plaque can rupture causing a blood clot to form. When the blood clot forms, the artery can become severely narrowed or completely blocked, causing a heart attack. Heart attack is the leading cause of in the [place]. 85% of muscle damage occurs within the first 2 hours. Delay in the recognition of heart attack symptoms increases the chances of . Know the early symptoms of a heart attack: Nausea Feeling of fullness in chest Jaw Pain Pain that travels down one or both arms Fatigue/being tired Anxiety Back Pain Chest pressure, squeezing, or discomfort Shortness of breath Sweating, or a cold sweat Feeling of impending doom There are unusual signs of a heart attack, too! Women, the elderly, and diabetics may present with atypical symptoms: Fainting/dizziness Weakness Confusion Risk Factors for a Heart Attack Some heart disease risk factors, such as age and family history, cannot be changed. Others, like smoking and lack of exercise, can be changed. Smoking High Cholesterol High Blood Pressure Family History Obesity Age Gender (Males are at higher risk) Lack of Exercise Diabetes Diet Stress Excessive Alcohol Intake If you or someone you know is experiencing the signs and symptoms of a heart attack, DON???T DELAY. Call immediately and seek help. If someone collapses, perform CPR! Do not attempt to drive if you are having symptoms of heart attack. Hands-Only CPR Why Hands-Only CPR? Hands-Only CPR has been shown to be as effective as conventional CPR for cardiac arrests that occur outside of a hospital. Survival depends on immediately receiving CPR from someone nearby. How do you perform Hands-Only CPR? There are two easy steps: Call if you see a teen or adult collapse Push hard and fast in the center of the chest at a beat of 100 beats per minute. Save a life! 4 WAYS TO GET AHEAD OF SEPSIS SEPSIS is a MEDICAL EMERGENCY. Time matters! Infections put you and your family at risk for a life-threatening condition called sepsis. Sepsis is the body's extreme response to an infection. It is life-threatening, and without timely treatment, sepsis can rapidly lead to tissue damage, organ failure, and . Sepsis happens when an infection you already have-in your skin, lungs, urinary tract or somewhere else-triggers a chain reaction throughout your body. 1 PREVENT INFECTIONS Take good care of chronic conditions. Talk to your doctor about getting the recommended vaccines. 2 PRACTICE GOOD HYGIENE Wash your hands frequently. Keep cuts or open sores clean and covered until they are healed. 3 KNOW THE SYMPTOMS Confusion or disorientation Shortness of breath High heart rate Fever, shivering, or feeling very cold Extreme pain or discomfort Clammy or sweaty skin 4 ACT FAST Get medical care IMMEDIATELY if you suspect sepsis or if you have an infection that is not getting better or is getting worse. To learn more about sepsis and how to prevent infections, visit www.cdc.gov/sepsis. The examination and treatment you have received in the Emergency Department has been done to provide an appropriate evaluation and stabilizing treatment on an emergency basis only. Given the limited resources, it is not meant to be a substitute for complete medical care. The follow-up doctor you named will receive a copy of your records and all test reports. IT IS IMPORTANT THAT YOU SCHEDULE A FOLLOW-UP APPOINTMENT AND ARE RE-EVALUATED. You should report any new complaints, symptoms, or remaining problems at that time. IT IS IMPOSSIBLE FOR THE EMERGENCY DEPARTMENT TO RECOGNIZE AND TREAT ALL ELEMENTS OF INJURY OR ILLNESS IN A SINGLE VISIT. If you have been referred to a specialist physician, it means that we believe you may have a condition that requires the expertise of a specialist. These physicians work in partnership with the hospital and have agreed to see referred patients in their office for further evaluation. KEEP IN MIND THAT THE SPECIALIST HAS HIS/HER OWN OFFICE POLICIES WHICH MAY REQUIRE PROPER INSURANCE OR PAYMENT UP FRONT BEFORE THE SPECIALIST WILL SEE YOU. It is your responsibility to call the specialist physician to make an appointment. We do not have the ability to refer patients to specialists/physicians that work with specific insurance companies. Please be advised that all financial charges or billing practices are determined by that practice, not the hospital. If your insurance company requires that you see a specialist from their approved list, it is your responsibility to contact your insurance company to make those arrangements. It is also your responsibility to follow any other requirements of your insurance company necessary to obtain coverage for claims submitted. We will bill your insurance; however, you are responsible today for any co-pay amounts. You will receive a separate bill for any services you may have received including: emergency, radiology, or pathology physicians. Patient Name:MANISH BRAVO II I have received this information and was given the opportunity to ask questions. Patient/Well Service Derrick Worker Name: Patient/Well Service Derrick Worker Signature: Relationship to Patient: Clinician/Hospital Well Service Derrick Worker Signature: Please Provide a Telephone Number Where You Can Be Reached: Is it Permissible To Leave a Message? Date: documented in this encounter Plan of Treatment Not on file documented as of this encounter Visit Diagnoses Not on filedocumented in this encounter
--- OUTSIDE RECORDS SUMMARY | 2024-07-19 14:12 | XMS_ITS | Clinical Summary ---
Author Organization [facility] Address [address] [place] [address] Care Team Providers Care Scalper Operator Name Role Phone Owen Kim MD Primary Care Provider [phone] Immunizations Immunization Administration Dates Next Due Pneumococcal Polysaccharide PPV23 06/17/2018 Family History Medical History Relation Name Comments Coronary artery disease Father Breast cancer Mother Coronary artery disease Mother Transient ischemic attack Mother Relation Name Status Comments Father Mother Social History Tobacco Use Types Packs/Day Years Used Date Smoking Tobacco: Never Alcohol Use Standard Drinks/Week Comments No 0 (1 standard drink = 0.6 oz pur e alcohol) Sex and Gender Information Value Date Recorded Sex Assigned at Not on file Legal Sex Male 7:15 PM EDT Gender Identity Not on file Sexual Orientation Not on file Last Filed Vital Signs Vital Sign Reading Time Taken Comments Blood Pressure 162/92 07/12/2018 3:50 PM EDT Pulse 83 07/12/2018 3:50 PM EDT Temperature - - Respiratory Rate - - Oxygen Saturation - - Inhaled Oxygen Concentration - - Weight 102 kg (225 lb 1.4 oz) 07/12/2018 3:50 PM EDT Height 185.4 cm (6' 1 ) 07/12/2018 3:50 PM EDT Body Mass Index 29.7 07/12/2018 3:50 PM EDT Plan of Treatment Not on file Care Teams Scalper Operator Relationship Specialty Start Date End Date Owen Kim MD [address] [place] [address] [place] [address] PCP - General 06/26/20
--- OUTSIDE RECORDS SUMMARY | 2024-07-19 14:12 | XMS_ITS | Referral Summary ---
Author Organization [facility] Address [address] [place] [address] Care Team Providers Care Offset Lithographic Press Setter Name Role Phone Unavailable Primary Care Provider [...]
--- OUTSIDE RECORDS SUMMARY | 2024-07-19 14:12 | XMS_ITS | Patient Health Record ---
Author Organization [facility] Address [address] [place] [id number] Care Team Providers Care Assembler Mechanical Ordnance Name Role Phone Wilbert Kim Primary Care Provider Shy Owen Unavailable [phone] Aruna Bowers Unavailable [phone] Allergies No Known Allergies Results Component Value Reference Range Notes P-Comprehensive Metabolic Pa [place] (CMP) Reviewed date:06/28/2024 04:17:13 PM Interpretation:satisfactory Performing Lab: Notes/Report: Test performed by [facility] [address] [place] [address] , [address], [place] [address] Kan Quintana MD, Sole Cementer CLIA: [id number] Sodium 139 135-145 mmol/L Potassium 4.6 3.5-5.3 [...] 1.3 <0.2-1.2 mg/dL A/G Ratio 2.5 1.1-2.5 H-VITAMIN B12 Reviewed date:07/27/2023 11:38:45 AM Interpretation:Normal Performing Lab: Notes/Report: VITB12 576 239-931 pg/mL H-Glycohemoglobin A1C Reviewed date:07/27/2023 11:38:44 AM Interpretation:Normal Performing Lab: Notes/Report: HGBA1C 4.7 4.0-6.0 % < 6% Non-Diabetic Level < 7% Controlled Diabetic Level > 8% Poorly Controlled Diabetic Level H-CMP Reviewed date:07/27/2023 11:38:44 AM Interpretation:gluc 110, bili 2.1, a/g 2 Performing Lab: Notes/Report: NA 137 136-145 mmol/L K 4.1 3.5-5.1 mmoL/L CL 104 98-107 mmol/L CO2 27 22.0-30.0 mmol/L GAP 10.1 5-15 mEq/L BUN 19 9-20 mg/dl CREATT 0.90 0.66-1.25 mg/dl GFRAA 102 >60 ML/MIN EGFR 85 >60 ml/min GLU 110 74-100 mg/dl CA 9.4 8.4-10.2 mg/dl BILIT 2.1 0.2-1.3 mg/dl AST 33 17-59 U/L ALT 32 12-78 U/L TP 6.3 6.3-8.2 g/dl ALB 4.2 3.5-5.0 g/dl GLOB 2.1 1.3-3.2 g/dL AGRATIO 2.0 1.1-1.8 ALP 79 38-126 U/L H-Lipid Panel Reviewed date:07/27/2023 11:38:44 AM Interpretation:chol 78, ldl 46, hdl 30 Performing Lab: Notes/Report: Patient Fasting? Y TRIG 112 30-150 mg/dl CHOL 78 140-200 mg/dl DLDL 45.62 100-129 mg/dL VLDL 22 0-40 mg/dL HDL 30 40-60 mg/dl CHLHDL 2.6 1-3.5 H-VITAMIN D Reviewed date:07/27/2023 11:38:44 AM Interpretation:36.8 Performing Lab: Notes/Report: TVITD 36.8 30-100 ng/mL Deficient <20 ng/mL Insufficient 20-30 ng/mL Sufficient 30-100 ng/mL Potential Toxicity >100 ng/mL H-CBC Reviewed date:07/27/2023 11:38:44 AM Interpretation:wbc 4.1, rbc 4.37, mcv 97, mch Performing Lab: Notes/Report: WBC 4.1 4.8-10.8 K/mm3 RBC 4.37 4.60-6.20 M/mm3 HGB 14.6 14.1-18.0 g/dL HCT 42.4 42.0-52.0 % MCV 97.0 80-94 fl MCH 33.5 27.0-31.2 pg MCHC 34.6 31.8-35.4 g/dL RDW 14.0 11.5-17.5 % PLT 143 142-424 K/mm3 MPV 8.3 7.4-10.4 fl NE% 68.9 37.0-80.0 % LY% 18.9 10-50 % MO% 10.2 1.7-9.3 % EO% 1.4 0.1-12.0 % BA% 0.6 0.1-2.0 % NE# 2.8 1.8-7.8 K/mm3 LY# 0.8 0.7-4.5 K/mm3 MO# 0.4 0.1-1.0 K/mm3 EO# 0.1 0.0-0.4 K/mm3 BA# 0.0 0-0.2 K/mm3 Reason For Referral Reason refer to [facility] for Carpal tunnel, right hand Diagnosis 1 Right carpal tunnel syndrome (G56.01) Referral Organization [facility] Referring Provider First Name Wilbert Bridges Referring Provider Last Name Julio Referring Provider [facility] dudley Referred Provider Specialty Hand Surgery General Notes Korin Duncan 08/30/19 8:25:46 AM > faxed referral to [phone] Referral Priority Routine Reason Poorly controlled hy pertension Diagnosis 1 Essential hypertensi on (I10) [facility] Referring Provider First Name Wilbert Bridges Referring Provider Last Name Julio Referring Provider [facility] dudley Referred Provider Specialty Cardiovascul ar Disease General Notes Korin Duncan 2024 10:40:09 AM > faxed to [facility] Cardiology, Korin Duncan 07/17/2024 12:02:16 PM > 08/19/2024 at 8:30am Referral Priority Routine Medications Medication SIG (Take, Route, Frequency, Duration) Notes Start Date End Date Status CareTouch CPAP & BIPAP Hose 1 DIRECTED auto PAP 6/16 cm with heated humidifier *Please review and pick correct strength-formulatio n from Medispan options. If intended option is not shown, discontinue and re-order from Quick Search* 07/11/2018 Active Lisinopril 40 MG 1 tablet Orally Once a day for 30 day(s) 07/11/2024 Active PreserVision AREDS 2 - 1 cap(s) orally bid Active Atorvastatin Calcium 80 MG 1 tab(s) orally once a day for 30 day(s) Active Metoprolol Succinate ER 100 MG 1 tablet Orally Once a day for 90 days 05/20/2024 Active B-12 1000 MCG 1 tab(s) orally once a day for 30 day(s) 05/03/2018 Active Pregabalin 75 MG 1 capsule Orally Three times a day 03/01/2024 Active Multiple Vitamin - 1 cap(s) orally once a day for 30 day(s) Active Omeprazole 20 MG TAKE 1 CAPSULE BY MOUTH TWICE DAILY FOR 30 DAYS for 30 Active Aspir-Low 81 MG 1 tab(s) orally once a day for 30 day(s) Active valACYclovir HCl 1 GM 1 tablet Orally three a day Active HYDROcodone-Acetamin ophen 7.5-325 MG 1 tablet as needed Orally Four times a day as needed 11/27/2023 Active Tamsulosin HCl 0.4 MG Take 1 capsule by mouth once daily at bedtime for 30 Active Vitamin D3 50 MCG (2000 UT) 1 tab(s) orally once a day for 30 day(s) 05/03/2018 Active HYDROcodone-Acetamin ophen 7.5-325 MG 1 tablet as needed Orally four times a day as needed 11/27/2023 Active Ranolazine ER 1000 MG 1 tab(s) orally 2 times a day for 30 day(s) Active Lidocaine Plus 4 % 1 application Externally Three times a day prn 12/12/2023 Active Immunizations Vaccine Route Administration Date Status Comme nts Prevnar (PCV20) IM Intramuscular 07/12/2023 Administered PNEUMOVAX 23 VACCINE Unknown 06/17/2018 Administered Fluzone Quad (6months&older) IM Intramuscular 12/17/2018 Administered Fluzone PF Quad (6-35 months) Unknown 11/14/2019 Administered Fluzone PF Quad (6-35 months) Unknown 12/04/2020 Administered Fluzone PF Quad (6-35 months) Unknown 11/28/2021 Administered COVID 19 Pfizer Unknown 04/04/2020 Administered COVID 19 Pfizer Unknown 04/25/2020 Administered COVID 19 Pfizer Unknown 11/21/2020 Administered Problems Problem Type SNOMED Code ICD Code Onset Dates Problem Status W/U Status Risk Notes Problem 64860560 Hyperglycemia (R73.9) Active confirmed Problem 28580137 Vitamin D deficiency (E55.9) Active confirmed Problem 558539284 Vitamin B12 deficiency (E53.8) Active confirmed Problem 20693030 Essential hypertension (I10) Active confirmed Problem BMI 30.0-30.9,ad ult (Z68.30) Active confirmed Problem 84709185 Calculus of gallbladder without cholecystitis without obstruction (K80.20) Active confirmed Problem 893342167 Paresthesia of s kin (R20.2) Active confirmed Problem 514736351 GERD without esophagitis (K21.9) Active confirmed Problem 939100684 Pain of left arm (M79.602) Active confirmed Problem 766925278 Thrombocytopenia (D69.6) Active confirmed Problem 148840873729910 Carpal tunnel syndrome of right wrist (G56.01) Active confirmed Problem 06601518 PJ (obstructive sleep apnea) (G47.33) Active confirmed Problem 328417340 Imbalance (R26.89) Active confirmed Problem 040348944 Pain of right ar m (M79.601) Active confirmed Problem 761188918 Prostatic hypertrophy (N40.0) Active confirmed Problem 642830247 Elevated PSA (R97.20) Active confirmed Problem 760834132 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) Active confirmed Problem 06942611 Biliary sludge determined by ultrasound (K83.8) Active confirmed Problem 241621138 History of laparoscopic cholecystectomy (Z90.49) Active confirmed Vital Signs Heart Rate 70 /min 07/11/2024 Blood pressure diastolic 100 mm Hg 07/11/2024 Height 72.5 in 07/11/2024 Blood pressure systolic 150 mm Hg 07/11/2024 Weight 229.0 lbs 07/11/2024 BMI 30.63 kg/m2 07/11/2024 Encounters Encounter Location Date Provider Diagnosis [facility] [address] [place], [place] [id number] 12/12/2023 Shy Owen Shingles B02.9 [facility] [address] [place], [place] [id number] 05/20/2024 Wilbert Kim Essential hypertensi on I10 ; Coronary artery disease involving coronary bypass graft of ho-chunk heart without angina pectoris I25.810 ; Paresthesia of skin R20.2 and PJ (obstructive sleep apnea) G47.33 [facility] [address] [place], [place] [id number] 06/18/2024 Wilbert Kim Essential hypertensi on I10 [facility] [address] [facility] [address] [place], [place] [id number] 07/11/2024 Wilbert Kim Essential hypertensi on I10 and BMI 30.0-30.9,adult Z68.30 [facility] [address] [facility] [address] [place], [place] [id number] 08/29/2023 Wilbert Kim Right carpal tunnel syndrome G56.01 ; Essential hypertension I10 and Coronary artery disease involving coronary bypass graft of ho-chunk heart without angina pectoris I25.810 [facility] [address] [facility] [address] [place], [place] [id number] 11/27/2023 Wilbert Kim Varicella zoster B02 .9 [facility] [address] [place], [place] [id number] 07/27/2023 Aruna Bowers [facility] [address] [place], [place] [id number] 08/04/2023 Wilbert Kim [facility] [address] [place], [place] [id number] 12/04/2023 Wilbert Kim [facility] [address] [place], [place] [id number] 12/26/2023 Shy Owen [facility] [address] [place], [place] [id number] 02/26/2024 Wilbert Kim Shingles B02.9 [facility] [address] [facility] [address] [place] [id number] 07/15/2024 Wilbert Kim Assessments Encounter Date Diagnosis (ICD Code) Assessment Notes Treatment Notes Treatment Clinical Notes Section Notes 11/27/2023 Varicella zoster (ICD-10 - B02.9) First RX of hydrocodone failed 12/12/2023 Shingles (ICD-10 - B02.9) usually takes 1 pain pill at night ; will add tyllenol 500mg tid prn AND LIDOCAINe CREAM ON CLOSED AREAS 02/26/2024 Shingles (ICD-10 - B02.9) 05/20/2024 Essential hypertension (ICD-10 - I10) 05/20/2024 Coronary artery disease involving coronary bypass graft of ho-chunk heart without angina pectoris (ICD-10 - I25.810) 06/18/2024 Essential hypertension (ICD-10 - I10) 07/11/2024 Essential hypertension (ICD-10 - I10) 07/11/2024 BMI 30.0-30.9,adult (ICD-10 - Z68.30) 08/29/2023 Essential hypertension (ICD-10 - I10) 08/29/2023 Right carpal tunnel syndrome (ICD-10 - G56.01) 08/29/2023 Coronary artery disease involving coronary bypass graft of ho-chunk heart without angina pectoris (ICD-10 - I25.810) 05/20/2024 Paresthesia of skin (ICD-10 - R20.2) 05/20/2024 PJ (obstructive sleep apnea) (ICD-10 - G47.33) Plan Of Treatment Pending Test Test Name Order Date Ultrasound : Kidneys, bilateral 07/12/19 25 P-Comprehensive Metabolic Panel (CMP) Next Appt Details Provider Name:Wilbert Oneill er, 08/12/2024 11:30:00 AM, [address] [facility], [address], [place], [id number], Insurance Providers Payer Name Payer Address Payer Phone Subscriber Number Group Number Insured Name Patient Relationship to Insured Coverage Start Date Coverage End Date [employer] [address] [place] [address] [phone] [id number] S CHITO BRAVO Self - patient is the insured Medical (General) History Medical History History ICD Code HTN 02/22/2019 Carotids < 20% 01/2020 mild thrombocytopenia Pfizer Covid Vaccine COVID 19 Infection 12/2020 COVID 19 Booster 11/13/2020 COVID 01 DEC 2021 Flu shot 2021 Surgical History Surgery Date(Month/Year) Hernia Surgery Heart cath 06/01 double bypass/open heart - 06/12/18 Heart cath 10/2018 cholecystectomy 2019 Hospitalization History Reason Date(Month/Year) [place] Acid reflux 04/14/19 - chest pain, CAD 05/23-06/17/18
== END 2024-07-19 23:59 | disposition home or self-care (01) ==
LOC: RAD 14:09
PROVIDERS: PCP Family Medicine; Visit Provider Family Medicine
DX: N28.1 Cyst of kidney, acquired (principal)
CPT/HCPCS: 76770

== ENCOUNTER 2024-09-03 07:57 | Outpatient (CLI) | payer MEDICARE, SELFPAY ==
--- OUTSIDE RECORDS SUMMARY | 2024-07-11 11:45 | XMS_ITS ---
Author Organization [facility] Address [address] [place] [id number] Care Team Providers Care Typing Bookkeeper Name Role Phone Wilbert Kim Primary Care Provider Allergies No Known Allergies Results Component Value Reference Range Notes Ultrasound : Kidneys, bilate ral (Not yet reviewed by provider) Interpretation:left renal cyst, bilateral renal cortical thickening Performing Lab: Notes/Report: left renal cyst, bilateral renal cortical thickening Reason For Referral Reason Poorly controlled hy pertension Diagnosis 1 Essential hypertensi on (I10) Referral Organization [facility] Referring Provider First Name Wilbert Bridges Referring Provider Last Name Julio Referring Provider Speciality Family Pra ctice Referred Provider Specialty Cardiovascul ar Disease General Notes Korin Duncan 2024 10:40:09 AM > faxed to [facility] CardiologyPerla Brynn 07/17/2024 12:02:16 PM > 08/19/2024 at 8:30am Referral Priority Routine REASON FOR VISIT 6 weeks Medications Medication SIG (Take, Route, Frequency, Duration) Notes Start Date End Date Status Metoprolol Succinate ER 100 MG 1 tablet Orally Once a day; Duration: 90 days 05/20/2024 Active Pregabalin 75 MG 1 capsule Orally Three times a day 03/01/2024 Active Omeprazole 20 MG TAKE 1 CAPSULE BY MOUTH TWICE DAILY FOR 30 DAYS; Duration: 30 Active Tamsulosin HCl 0.4 MG TAKE 1 CAPSULE BY MOUTH ONCE DAILY AT BEDTIME FOR 30 DAYS; Duration: 30 Active HYDROcodone-Acetamin ophen 7.5-325 MG 1 tablet as needed Orally four times a day as needed 11/27/2023 Active CareTouch CPAP & BIPAP Hose 1 DIRECTED auto PAP 6/16 cm with heated humidifier *Please review and pick correct strength-formulatio n from [employer] options. If intended option is not shown, discontinue and re-order from Quick Search* 07/11/2018 Active PreserVision AREDS 2 - 1 cap(s) orally bid Active valACYclovir HCl 1 GM 1 tablet Orally three a day Active HYDROcodone-Acetamin ophen 7.5-325 MG 1 tablet as needed Orally Four times a day as needed 11/27/2023 Active Lidocaine Plus 4 % 1 application Externally Three times a day prn 12/12/2023 Active Atorvastatin Calcium 80 MG 1 tab(s) orally once a day; Duration: 30 day(s) Active B-12 1000 MCG 1 tab(s) orally once a day; Duration: 30 day(s) 05/03/2018 Active Multiple Vitamin - 1 cap(s) orally once a day; Duration: 30 day(s) Active Aspir-Low 81 MG 1 tab(s) orally once a day; Duration: 30 day(s) Active Vitamin D3 50 MCG (2000 UT) 1 tab(s) orally once a day; Duration: 30 day(s) 05/03/2018 Active Lisinopril 40 MG 1 tablet Orally Once a day; Duration: 30 day(s) 07/11/2024 Active Ranolazine ER 1000 MG 1 tab(s) orally 2 times a day; Duration: 30 day(s) Active Vital Signs Weight 229.0 lbs 07/11/2024 Blood pressure systolic 150 mm Hg 07/12/19 25 Blood pressure diastolic 100 mm Hg 025 Heart Rate 70 /min 07/11/2024 Height 72.5 in 07/11/2024 BMI 30.63 kg/m2 07/11/2024 Encounters Encounter Location Date Provider Diagnosis [facility] [address] [facility] [address] [place], [place] [id number] 07/11/2024 Wilbert Kim Essential hypertensi on I10 and BMI 30.0-30.9,adult Z68.30 Assessments Encounter Date Diagnosis (ICD Code) Assessment Notes Treatment Notes Treatment Clinical Notes Section Notes 07/11/2024 Essential hypertension (ICD-10 - I10) 07/11/2024 BMI 30.0-30.9,adult (ICD-10 - Z68.30) Plan Of Treatment Medication Medication Name Sig Start Date Stop Date Notes Lisinopril 40 MG 1 tablet Orally Once a day; Duration: 30 day(s) 07/11/2024 Lisinopril 20 MG 1 tab(s) orally once a day Pending Test Test Name Order Date Ultrasound : Kidneys, bilateral 07/12/19 25 Referrals Referral Date Details 07/11/2024 07/11/2024, Poorly c ontrolled hypertension Next Appt Details Follow Up: 4 Weeks, Reason: Provider Name:Wilbert Oneill er, 10/28/2024 11:00:00 AM, [address], [address], [place], [place], [phone], Progress Notes * CHITO BRAVODOB: 8 (68 yo M)Acc No.[id number]:07/11/2024 Progress Notes Patient: CHITO GORDON Provider: Wilbert Kim M.D. :1955 A ge:68 Y S ex:Male Date:07/11/2024 Address:[address] [place] [address], [place], [phone] Subjective: * Chief Complaints: * 1 . 6 weeks. * HPI: C ardiology: The pt is here for a follow up on Hypertension and Med increase. Pt states his BP has been running in the high 130's/80's. Pt states he has noticed it is higher in the morning. Pt states he has gotten 2 reading that were 200/100. Pt states he has noticed his BP is better when he exercise. 68 year old male presents with c/o Short of Breath w ith exertion. Denies : Chest Pain. D enies : Dizziness. D enies : Palpitations. * ROS: D ERMATOLOGY: no R robe. [...] [facility] - chest pain, CAD 05/23-06/17/18, [place] Acid reflux 04/14/19. * Family History: F ather: diagnosed with Cancer. M other: diagnosed with Hypertension, Heart Disease, Cancer. * Social History: C URRENT TOBACCO USE: No . C affeine: yes, frequency: 3 cups coffee per day. 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 Alcohol: No. * Medications: T aking Ranolazine ER 1000 MG Tablet Extended Release [...] heated humidifier *Please review and pick correct strength- formulation from [employer] options. If intended option is not shown, discontinue and re-order from Quick Search*, Taking Lisinopril 20 MG Tablet 1 tab(s) orally once a day , Taking HYDROcodone-Acetaminophen 7.5-325 MG Tablet 1 [...] Orally Three times a day , Taking Metoprolol Succinate ER 100 MG Tablet Extended Release 24 Hour 1 tablet Orally Once a day , Taking Tamsulosin HCl 0.4 MG Capsule TAKE 1 CAPSULE BY MOUTH ONCE DAILY AT BEDTIME FOR 30 DAYS , Taking Omeprazole 20 MG Capsule Delayed Release TAKE 1 CAPSULE BY MOUTH TWICE DAILY FOR 30 DAYS , Medication List reviewed and reconciled with the patient * Allergies: N .K.D.A. Objective: * Vitals: W t: 229.0, Temp: 98.0, BP: 150/100, HR: 70, O2 Sat: 95% on RA, Nurse: LUCIANA, Ht: 72.5, BMI:30.63. * Examination: G eneral Examination: General Appearance: N AD. H EENT: u nremarkable.?Oral cavity: n o lesions, mucosa moist and WNL, no erythema. N eulalia: s upple, no lymphadenopathy. C hest: n ormal shape and expansion. H eart: R SR, S4, 150/88. L ungs: c lear to auscultation. A bdomen: soft and nontender. N eurologic Exam:?Intact, gait normal. S kin: n ormal, no rash. P eripheral pulses: n ormal . E xtremities: n o leg edema. Assessment: * Assessment: 1. E ssential hypertension - I10 (Primary) 2 . B DC 30.0-30.9,adult - Z68.30 Plan: * Treatment: ? Referral To:Cardiovascular Disease ?Reason:Poorly controlled hypertension * Procedure Codes: G 2211 Complex e/m visit add on, G8950 PREHTN/HTN BP DOC INDCD F/U DOC, G8753 MOST RECENT SYSTOLIC BP >= 140MM HG, G8754 MOST RECENT DIASTOLIC BP < 90MM HG, 3017F COLORECTAL CA SCREEN DOC REV * Preventive Medicine: Screening / Special Tests: C olonoscopy Kenzie harris:, negative 07/28/2023. * Follow Up: 4 Weeks * Images: Billing Information: * Visit Code: 31937 Office Visit, Est Pt., Level 3. * Procedure Codes: G2211 Complex e/m visit add on. G8950 PREHTN/HTN BP DOC INDCD F/U DOC. G8753 MOST RECENT SYSTOLIC BP >= 140MM HG. G8754 MOST RECENT DIASTOLIC BP < 90MM HG. 3017F COLORECTAL CA SCREEN DOC REV. * Electronic signature of Wilbert Kim MD on 09/03/2024 at 08:05 AM EDT Sign off status: Pending * Provider: Wilbert Kim M.D. Date: 0 07/11/2024 Generated for Printi ng/Faxing/eTransmitting on: 0 09/03/2024 08:05 AM EDT History and Physical Notes * HPI (History of Present Illness) Category Sub-Category Detail Notes Category Not es Cardiology Short of Breath with exertion Chest Pain Palpitations Dizziness Examination Category Sub-Category Detail Notes Category Not es General Examination HEENT: unremarkable Heart: RSR, S4, 150/88 Lungs: clear to auscultatio n Abdomen: soft and nontender Extremities: no leg edema General Appearance: NAD Skin: normal, no rash Neurologic Exam: Intact, gait normal Neck: supple, no lymphaden opathy Oral cavity: no lesions, mucosa m oist and WNL, no erythema Peripheral pulses: normal Chest: normal shape and exp ansion Consultation Request Notes Referral Date Referring Provider Referred Provider Not es 07/11/2024 Wilbert Kim , Poorly con trolled hypertension
--- OUTSIDE RECORDS SUMMARY | 2024-08-12 07:30 | XMS_ITS ---
Author Organization [facility] Address [address] [facility] [address] [facility] [address] [place] [id number] Care Team Providers Care Forestry Conservation Worker Name Role Phone Wilbert Kim Primary Care Provider Allergies No Known Allergies REASON FOR VISIT 1 Month Check Up Encounters Encounter Location Date Provider Diagnosis [facility] [address] [place] [id number] 08/12/2024 Wilbert Kim Plan Of Treatment Next Appt Details Provider Name:Wilbert Oneill er, 10/28/2024 11:00:00 AM, [address], [place], [place], [id number], Progress Notes * CHITO BRAVODOB: 8 (68 yo M)Acc No.[id number]:08/12/2024 Progress Notes Patient: CHITO GORDON Provider: Wilbert Kim M.D. :1955 A ge:68 Y S ex:Male Date:08/12/2024 Address:[address], [place], [phone] Subjective: * Chief Complaints: * 1 . 1 Month Check Up. * ROS: D ERMATOLOGY: no R robe. n o H devante. G ASTROENTEROLOGY: no N ausea. n o V omiting. n o D iarrhea.? U ROLOGY: no D ifficulty urinating. n o B lood in urine. * Medical History: [place], 02/22/2019 Carotids < 20%, 01/2020 mild thrombocytopenia, Pfizer Covid Vaccine Fe, COVID 19 Infection 12/2020, COVID 19 Booster 11/13/2020, COVID 01 DEC 2021, Flu shot 2021. * Surgical History: H ernia Surgery , Heart cath 06/01, double bypass/open heart - [facility] 06/12/18, Heart cath 10/2018, cholecystectomy 2019. * Hospitalization/Major Diagno stic Procedure: [facility] - chest pain, CAD 05/23-06/17/18, [place] Acid reflux 04/14/19. * Family History: F ather: diagnosed with Cancer. M other: diagnosed with Heart Disease, Cancer, Hypertension. * Social History: C URRENT TOBACCO USE: No . C affeine: yes, frequency: 3 cups coffee per day. 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 Alcohol: No. * Allergies: N .K.D.A. Objective: * Vitals: Assessment: Plan: * Treatment: * Images: Billing Information: * Visit Code: * Procedure Codes: * Electronic signature of Wilbert Kim MD on 09/03/2024 at 08:04 AM EDT Sign off status: Pending * Provider: Wilbert Kim M.D. Date: 08/12/2024 Generated for Olu bowen/Bonifacio/Dashawn on: 09/03/2024 08:04 AM EDT
--- OUTSIDE RECORDS SUMMARY | 2024-08-26 10:15 | XMS_ITS ---
Author Organization [employer] Address [address] [facility] [address] [place] [id number] Care Team Providers Care Construction Recruiter Name Role Phone Wilbert Kim Primary Care Provider [phone] Allergies No Known Allergies REASON FOR VISIT check up, Needs labs with PSA & Tdap Medications Medication SIG (Take, Route, Frequency, Duration) Notes Start Date End Date Status Lisinopril 40 MG 1 tablet Orally Once a day; Duration: 30 day(s) 07/11/2024 Active Omeprazole 20 MG 1 capsule twice a day; Duration: 30 days Active HYDROcodone-Acetamin ophen 7.5-325 MG 1 tablet as needed Orally four times a day as needed 11/27/2023 Active Pregabalin 75 MG 1 capsule Orally Three times a day 03/01/2024 Active Metoprolol Succinate ER 100 MG 1 tablet Orally Once a day; Duration: 90 days 05/20/2024 Active PreserVision AREDS 2 - 1 cap(s) orally bid Active CareTouch CPAP & BIPAP Hose 1 DIRECTED auto PAP 6/16 cm with heated humidifier *Please review and pick correct strength-formulatio n from Medispan options. If intended option is not shown, discontinue and re-order from Quick Search* 07/11/2018 Active HYDROcodone-Acetamin ophen 7.5-325 MG 1 tablet as needed Orally Four times a day as needed 11/27/2023 Active valACYclovir HCl 1 GM 1 tablet Orally three a day Active Lidocaine Plus 4 % 1 application Externally Three times a day prn 12/12/2023 Active Aspir-Low 81 MG 1 tab(s) orally once a day; Duration: 30 day(s) Active Multiple Vitamin - 1 cap(s) orally once a day; Duration: 30 day(s) Active Vitamin D3 50 MCG (2000 UT) 1 tab(s) orally once a day; Duration: 30 day(s) 05/03/2018 Active B-12 1000 MCG 1 tab(s) orally once a day; Duration: 30 day(s) 05/03/2018 Active Atorvastatin Calcium 80 MG 1 tab(s) orally once a day; Duration: 30 day(s) Active Tamsulosin HCl 0.4 MG Take 1 capsule by mouth once daily at bedtime; Duration: 30 Active Ranolazine ER 1000 MG 1 tab(s) orally 2 times a day; Duration: 30 day(s) Active Vital Signs Weight 230.2 lbs 08/26/2024 Blood pressure systolic 160 mm Hg 08/27/19 25 Blood pressure diastolic 86 mm Hg 025 Heart Rate 64 /min 08/26/2024 Height 72.5 in 08/26/2024 BMI 30.79 kg/m2 08/26/2024 Encounters Encounter Location Date Provider Diagnosis Domonique [address] [facility] [address] [place] [id number] 08/26/2024 Wilbert Kim Essential hypertensi on I10 ; 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 I25.810 and GERD without esophagitis K21.9 Assessments Encounter Date Diagnosis (ICD Code) Assessment Notes Treatment Notes Treatment Clinical Notes Section Notes 08/26/2024 Essential hypertension (ICD-10 - I10) cont present treatment 08/26/2024 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 (ICD-10 - I25.810) 08/26/2024 GERD without esophagitis (ICD-10 - K21.9) Plan Of Treatment Medication Medication Name Sig Start Date Stop Date Notes Omeprazole 20 MG 1 capsule twice a day; Duration: 30 days Treatment Notes Assessment Notes Essential hypertension cont present brook tment Next Appt Details Follow Up: 2 Months, Reason: Provider Name:Wilbert Oneill er, 10/28/2024 11:00:00 AM, [address] [facility], [address], [place] [id number], Progress Notes * TRACY BRAVO: 8 (68 yo M)Acc No.[id number]:08/26/2024 Progress Notes Patient: CHITO GORDON Provider: Wilbert Kim M.D. :1955 A ge:68 Y S ex:Male Date:08/26/2024 Address:[address] [place], [place] [address], [id number] Subjective: * Chief Complaints: * 1 . Check up. 2. Needs labs with PSA & Tdap. * HPI: C ardiology: The patient is here for a check up on Hypertension. Pt states he does check his BP at home and it has been in the 120-150's/80's. Pt states he had a kidney ultra sound on July 11 and would like to discuss the results. Showed cortical thinning. See pt docs. Denies : Chest Pain. D enies : Short of Breath. D enies : Dizziness. D enies : [...] U K - chest pain, CAD 05/23-06/17/18, [place] Acid reflux 04/14/19. * Family History: F ather: diagnosed with Cancer. M other: diagnosed with Cancer, Hypertension, Heart Disease. * Social History: C URRENT TOBACCO USE: No . C affeine: yes, frequency: 3 cups coffee per day. 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 If intended option is not shown, discontinue and re-order from Quick Search*, Taking HYDROcodone-Acetaminophen 7.5-325 MG Tablet 1 tablet [...] tablet Orally Once a day , Taking Omeprazole 20 MG Capsule Delayed Release TAKE 1 CAPSULE BY MOUTH TWICE DAILY FOR 30 DAYS , Taking Lisinopril 40 MG Tablet 1 tablet Orally Once a day , Taking Tamsulosin HCl 0.4 MG Capsule Take 1 capsule by mouth once daily at bedtime , Medication List reviewed and reconciled with the patient * Allergies: N .K.D.A. Objective: * Vitals: W t: 230.2, Temp: 98.1, BP: 160/86, HR: 64, O2 Sat: 96% on RA, Nurse: LUCIANA, Ht: 72.5, Repeat BP: 138/82, BMI:30.79. * Examination: G eneral Examination: General Appearance: N AD. H EENT: u nremarkable.?Oral cavity: n o lesions, mucosa moist and WNL, no erythema. N eulalia: s upple, no lymphadenopathy. C hest: n ormal shape and expansion. H eart: R SR, S4, ectopics, 132/84. L ungs: c lear to auscultation. A bdomen: soft and nontender. N eurologic Exam: I ntact, gait normal. S kin: n ormal, no rash. P eripheral pulses:?normal . E xtremities: n o leg edema. Assessment: * Assessment: 1. E ssential hypertension - I10 (Primary) 2 . C oronary artery disease involving coronary bypass graft of council heart without angina pectoris - I25.810 3 .?GERD without esophagitis - K21.9 Plan: * Treatment: 2. G ERD without esophagitis Refill Omeprazole Capsule Delayed Release, 20 MG, 1 capsule, twice a day, 30 days, 60 Capsule, Refills 3. * Follow Up: 2 Months * Images: Billing Information: * Visit Code: 38283 Office Visit, Est Pt., Level 3. * Procedure Codes: * Electronic signature of Wilbert Kim MD on 09/03/2024 at 08:04 AM EDT Sign off status: Pending * Provider: Wilbert Kim M.D. Date: 08/26/2024 Generated for Olu bowen/Bonifacio/Sylvieitting on: 09/03/2024 08:04 AM EDT History and Physical Notes * HPI (History of Present Illness) Category Sub-Category Detail Notes Category Not es Cardiology Short of Breath Chest Pain Palpitations Dizziness Examination Category Sub-Category Detail Notes Category Not es General Examination HEENT: unremarkable Heart: RSR, S4, ectopics, 1 32/84 Lungs: clear to auscultatio n Abdomen: soft and nontender Extremities: no leg edema General Appearance: NAD Skin: normal, no rash Neurologic Exam: Intact, gait normal Neck: supple, no lymphaden opathy Oral cavity: no lesions, mucosa m oist and WNL, no erythema Peripheral pulses: normal Chest: normal shape and exp ansion
--- NOTE | 2024-09-03 08:00 | CA_ITS ---
FINAL REPORT CLINICAL HISTORY: HTN, CAD-CABG 6 yr/ago FINDINGS: Aorta velocity: 87 cm/sec Right kidney: 12.1 cm. No evidence of hydronephrosis or mass. Right intrarenal RI: 0.67-0.74 Right renal artery velocity: 166 cm/sec. Right RAR (Renal artery-Aortic Ratio): 1.9 Left Kidney: 12.1 cm. No evidence of hydronephrosis or mass. Left intrarenal RI: 0.61-0.72 Left renal artery velocity: 173 cm/sec. Left RAR (Renal Artery-Aortic Ratio): 2.0 IMPRESSION: No evidence of significant renal artery stenosis. CT angiogram or postcontrast MR angiogram would be more sensitive for evaluation of possible renal artery stenosis. Reviewed, Interpreted and Dictated by Gabo Hutchison MD Transcribed by Pinky Zacarias Authenticated and [facility]
--- OUTSIDE RECORDS SUMMARY | 2024-09-03 08:12 | XMS_ITS | Encounter Summary ---
Author Organization [employer] ([place], [place], [place], [place]) Address [address] [place] [address] Care Team Providers Care Bridge Repairer Name Role Phone Unavailable Primary Care Provider Unavailabl e Encounter Details Date Type Department Care Team (Late st Contact Info) Description 02/07/[address] 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
--- OUTSIDE RECORDS SUMMARY | 2024-09-03 08:12 | XMS_ITS | Continuity of Care Document ---
Author Organization [place] - [facility]cho[facility] Address [address] [place] [address] Care Team Providers Care Compressor Service Technician Name Role Phone Wilbert BARNARD Primary Care Provider [phone] Assessment Encounter Date Assessment Date Assessment LastModified by Organization Details LastModified Time 07/18/2024 07/18/2024 - 68-year-old male with history of benign prostatic hyperplasia and elevated PSA presenting with follow-up evaluation for benign prostatic hyperplasia with lower urinary tract symptoms. - BPH symptoms managed with tamsulosin. - Stable PSA trend. - Diminished sexual function likely multifactorial . [email or web address] Not available 07/18/2024 13:52:11 Plan of Treatment Reminders Order Date Submit Date Provider Last Modified By Organization Details Last Modified Time Details Appointments RECHECK 2024 01:15P Toni ZAMAN MD Not available Not available Not available Lab urinalysi s panel, auto 2024 0605/ 025 [email or web address] 4 [facility] With [facility], [address] [place] [address] [address], [place], [address], 07/21/2024 10:27:47 Referral None recorded. Procedures None recorded. Surgeries None recorded. Imaging None recorded. Medication Orders None recorded. Patient TargetsNo targets recorded. Patient Instructions Encounter Date Encounter Id Patient Instructions Last Modified By Organization Details Last Modified Time 07/18/2024 [id number] learning about healthy weight Not available 07/21/2024 10:27:47 - Continue takin g tamsulosin as prescribed. - Notice any changes in urinary symptoms and report as needed. - Return in 6 months for regular check-up and PSA test. - Stay aware of any new symptoms and contact if they arise. [email or web address] Not available 07/18/2024 13:52:14 Reason for Referral None Reported. Results Created Date Observation Date Name Description Value Unit Range Abnormal Flag Note LastModifiedBy Organization Detail LastModifiedTime 07/19/1907/18/2024 urina lysis panel , auto Unknown Analyte Clean Catch Not Available [facility] With [address], [place], [address], 07/18/2024 13:54:44 07/19/19 25 07/18/2024 urina lysis panel , auto Unknown Analyte Yellow Not Available [facility] With [address], [place], [address], 07/18/2024 13:54:44 07/19/19 25 07/18/2024 urina lysis panel , auto Unknown Analyte Clear Not Available [facility] With [address], [place], [address], 07/18/2024 13:54:44 07/19/19 25 07/18/2024 urina lysis panel , auto Unknown Analyte 1.020 Not Available [facility] With [address] [place], [address], 07/18/2024 13:54:44 07/19/19 25 07/18/2024 urina lysis panel , auto Unknown Analyte 1.003 - 1.030 Not Available [facility] With [address] [place], [address], 07/18/2024 13:54:44 07/19/19 25 07/18/2024 urina lysis panel , auto Unknown Analyte 5.0 Not Available [facility] With [address] [place], [address], 07/18/2024 13:54:44 07/19/19 25 07/18/2024 urina lysis panel , auto Unknown Analyte 5.0 - 8.0 Not Available [facility] With [address], [place], [address], 07/18/2024 13:54:44 07/19/19 25 07/18/2024 urina lysis panel , auto Unknown Analyte Negati ve Not Available [facility] With [address] [place], [address], 07/18/2024 13:54:44 07/19/19 25 07/18/2024 urina lysis panel , auto Unknown Analyte Negati ve Not Available [facility] With [address] [place], [address], 07/18/2024 13:54:44 07/19/19 25 07/18/2024 urina lysis panel , auto Unknown Analyte Negati ve Not Available [facility] With [address], [place], [address], 07/18/2024 13:54:44 07/19/19 25 07/18/2024 urina lysis panel , auto Unknown Analyte Negati ve Not Available [facility] With [address], [place], [address], 07/18/2024 13:54:44 07/19/19 25 07/18/2024 urina lysis panel , auto Unknown Analyte Negati ve Not Available [facility] [address] [place], [address], 07/18/2024 13:54:44 07/19/19 25 07/18/2024 urina lysis panel , auto Unknown Analyte Negati ve Not Available [facility] With [address] [place], [address], 07/18/2024 13:54:44 07/19/19 25 07/18/2024 urina lysis panel , auto Unknown Analyte Normal Not Available [facility] With [address] [place], [address], 07/18/2024 13:54:44 07/19/19 25 07/18/2024 urina lysis panel , auto Unknown Analyte Normal Not Available [facility] With [address] [place], [address], 07/18/2024 13:54:44 07/19/19 25 07/18/2024 urina lysis panel , auto Unknown Analyte Negati ve Not Available [facility] With [address] [place], [address], 07/18/2024 13:54:44 07/19/19 25 07/18/2024 urina lysis panel , auto Unknown Analyte Negati ve Not Available [facility] With [address] [place], [address], 07/18/2024 13:54:44 07/19/19 25 07/18/2024 urina lysis panel , auto Unknown Analyte 1 mg/dL Not Available [facility] With [address] [place], [address], 07/18/2024 13:54:44 07/19/19 25 07/18/2024 urina lysis panel , auto Unknown Analyte Normal Not Available [facility] With [address] [place], [address], 07/18/2024 13:54:44 07/19/19 25 07/18/2024 urina lysis panel , auto Unknown Analyte Negati ve Not Available [facility] With [address], [place], [address], 07/18/2024 13:54:44 07/19/19 25 07/18/2024 urina lysis panel , auto Unknown Analyte Negati ve Not Available [facility] With [address], [place], [address], 07/18/2024 13:54:44 07/19/19 25 07/18/2024 urina lysis panel , auto Unknown Analyte Negati ve Not Available [facility] With [address], [place], [address], 07/18/2024 13:54:44 07/19/19 25 07/18/2024 urina lysis panel , auto Unknown Analyte Negati ve Not Available [facility] With [address], [place], [address], 07/18/2024 13:54:44 Result Notes None recorded. Problems Name Problem SNOMED Code Status Onset Date Resolution Date Notes Provider Name and Address Organization Details Recorded Time Prostate specific antigen outside reference range 381863993 Active 018 Murelenarturo rosen [facility] 8 15:37:57 Problem Notes None recorded. Procedures Surgical History Date Name Laterality Status Provider Name and Address Organization Details Recorded Time 08/14/19 20 Cholecystectomy completed Murelene Jakob [facility] 09/19/2019 13:36:11 06/13/19 19 Heart Surgery completed Murelene Jakob [facility] 02/28/2019 14:50:57 02/18/19 19 Evening/Weekend/Ho liday Services completed Ele Ethington [facility] 02/18/2018 09:36:39 Hernia Repair completed Murelene Jakob [facility] 02/23/2017 15:41:26 Imaging Results None recorded. Procedure [...] Updated DateTime 07/18/2024 185.42 cm 29 kg/m2 [facility] 07/18/2024 13:54:08 Social History Question Answer Notes LastModified by Organizat ion Details LastModified Time Tobacco Smoking Status Never Smoker Brenda Robert [facility] 02/23/2017 15:40:06 How Much Tobacco Do You Chew? None Information not available 02/28/2019 Marital Status Single [email or web address] Informatio n not available 02/23/2017 What Was [...] LastModified Time Father Malignant neoplasm of prostate Not available 2017 15:38:11 Mother Family history of malignant neoplasm Not available 2017 15:38:35 Medical History Condition Response Kidney Stones Y Hypertension Y Past Encounters Encounter ID Performer Location Encounter Start Date Encounter Closed Date Diagnosis/Indication Diagnosis SNOMED-CT Code Diagnosis ICD10 Code Diagnosis Note [id number] ASHTYN ZAMAN MD [facility] [address] [place] [address] ,[address] [place] [address] 07/18/2024 13:34:00 07/18/2024 16:02:16 Benign prostatic hyperplasia with outflow obstruction 645012369 N13.8 N40.1 - Continue tamsulosin . - Monitor symptoms and effects. Prostate s pecific antigen above reference range 572825306 R97.20 - Monitor PSA levels. - Schedule PSA test in 6 months. Health Concerns Section Related Observation LastModified by Organization Detai ls LastModified Time None Recorded Concern Status LastModified by Organization Details LastModified Time None Recorded Payers Encounter Date Sequence Insurance Name Policy Number Policy Chacon Covered Member ID Chacon Member ID Guarantor Name 07/18/2024 1 [place] [employer] OF [facility] MEDIUE ACCESS (MEDICARE REPLACEMENT REGIONAL PPO) [id number] Manish Luke [id number] Manish Luke Notes Date Note Type Note Provider Name and Address Organization Details Recorded Time 07/18/2024 text/html The patient is a 68-year-old male presenting with benign prostatic hyperplasia with lower urinary tract symptoms. Current management includes tamsulosin. PSA levels have shown a slight increase over several years: 3.71 in August 2020, 4.29 in September 2023, rising to 4.38 in July 2024. Reports post-micturition dribbling and frequent urination approximately every hour, with nocturia ranging from 0 to 1 time per night. Denies dysuria or hematuria. Sexual function reported as diminished, likely multifactorial, including age and medication effects. - Labs: - PSA Level: July 2024 - 4.38, September 2023 - 4.29, August 2020 - 3.71 ASHTYN ZAMAN MD [address] [place] [address], [address], [facility] 07/21/2024 10:28:08
--- OUTSIDE RECORDS SUMMARY | 2024-09-03 08:12 | XMS_ITS | Encounter Summary ---
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
--- OUTSIDE RECORDS SUMMARY | 2024-09-03 08:12 | XMS_ITS | Encounter Summary ---
Author Organization [employer] ([place], [place], [place], [place]) Address [address] [place] [address] Care Team Providers Care Client Service Supervisor Name Role Phone Unavailable Primary Care Provider Unavailabl e Encounter Details Date Type Department Care Team (Late st Contact Info) Description 02/08/2020 Transcribed Document [facility] Family Medicine [address] [place] [address] ProviderRaj MD [address] [place] [address] Social History Tobacco Use Types [...] - Historical ProviderMD - 02/08/2020 1:10 AM DIAGNOSTIC TECH ED Discharge Entered On: 02/08/2020 1:10 EST [...]
--- OUTSIDE RECORDS SUMMARY | 2024-09-03 08:12 | XMS_ITS | Clinical Summary ---
Author Organization [employer] ([place], [place], [place], [place]) Address [address] [place] [address] Care Team Providers Care Operations Liaison Name Role Phone Unavailable Primary Care Provider [...]
--- OUTSIDE RECORDS SUMMARY | 2024-09-03 08:12 | XMS_ITS | Patient Health Record ---
[facility] Address [address] [facility] [address] [place] [id number] Care Team Providers Care Network Pricing Consultant Name Role Phone Wilbert Kim Primary Care Provider Shy Owen Unavailable [phone] Allergies No Known Allergies Results Component Value Reference Range Notes P-Comprehensive Metabolic Pa ver[place] (CMP) Reviewed date:06/28/2024 04:17:13 PM Interpretation:satisfactory Performing Lab: Notes/Report: Test performed by [facility] [address] , [address], [place] [address] Kan Quintana MD, Independent Consultant CLIA: [id number] Sodium 139 135-145 mmol/L Potassium 4.6 3.5-5.3 [...] 1.3 <0.2-1.2 mg/dL A/G Ratio 2.5 1.1-2.5 Ultrasound : Kidneys, bilate ral (Not yet reviewed by provider) Interpretation:left renal cyst, bilateral renal cortical thickening Performing Lab: Notes/Report: left renal cyst, bilateral renal cortical thickening Reason For Referral Reason Poorly controlled hy pertension Diagnosis 1 Essential hypertensi on (I10) Referral Organization [facility] Referring Provider First Name Wilbert Cyrus Referring Provider Last Name Julio Referring Provider Speciality Family Pra ctice Referred Provider Specialty Cardiovascul ar Disease General Notes Korin Duncan 2024 10:40:09 AM > faxed to [facility], Korin Duncan 07/17/2024 12:02:16 PM > 08/19/2024 at 8:30am Referral Priority Routine Medications Medication SIG (Take, Route, Frequency, Duration) Notes Start Date End Date Status Tamsulosin HCl 0.4 MG 1 capsule Orally Once a day; Duration: 30 days Active Aspir-Low 81 MG 1 tab(s) orally once a day; Duration: 30 day(s) Active Lisinopril 40 MG 1 tablet Orally Once a day; Duration: 30 day(s) 07/11/2024 Active Multiple Vitamin - 1 cap(s) orally once a day; Duration: 30 day(s) Active PreserVision AREDS 2 - 1 cap(s) orally bid Active Omeprazole 20 MG 1 capsule twice a day; Duration: 30 days Active CareTouch CPAP & BIPAP Hose 1 DIRECTED auto PAP 6/16 cm with heated humidifier *Please review and pick correct strength-formulatio n from [employer] options. If intended option is not shown, discontinue and re-order from Quick Search* 07/11/2018 Active HYDROcodone-Acetamin ophen 7.5-325 MG 1 tablet as needed Orally Four times a day as needed 11/27/2023 Active valACYclovir HCl 1 GM 1 tablet Orally three a day Active Lidocaine Plus 4 % 1 application Externally Three times a day prn 12/12/2023 Active Ranolazine ER 1000 MG 1 tab(s) orally 2 times a day; Duration: 30 day(s) Active HYDROcodone-Acetamin ophen 7.5-325 MG 1 tablet as needed Orally four times a day as needed 11/27/2023 Active Vitamin D3 50 MCG (2000 UT) 1 tab(s) orally once a day; Duration: 30 day(s) 05/03/2018 Active Pregabalin 75 MG 1 capsule Orally Three times a day 03/01/2024 Active B-12 1000 MCG 1 tab(s) orally once a day; Duration: 30 day(s) 05/03/2018 Active Metoprolol Succinate ER 100 MG 1 tablet Orally Once a day; Duration: 90 days 05/20/2024 Active Atorvastatin Calcium 80 MG 1 tab(s) orally once a day; Duration: 30 day(s) Active Immunizations Vaccine Route Administration Date Status [...] Problem Status W/U Status Risk Notes Problem Hyperglycemia (81099309) Hyperglycemia (R73.9) Active confirmed Problem Vitamin D deficiency (10136710) Vitamin D deficiency (E55.9) Active confirmed Problem Vitamin B12 deficiency (034639344) Vitamin B12 deficiency (E53.8) Active confirmed Problem Essential hypertension (03465891) Essential hypertension (I10) Active confirmed Problem Body mass index 30+ - obesity (574197266) BMI 30.0-30.9,adult (Z68.30) Active confirmed Problem Cholelithiasis without obstruction (99597600) Calculus of gallbladder without cholecystitis without obstruction (K80.20) Active confirmed Problem Paresthesia (finding) (75205144) Paresthesia of skin (R20.2) Active confirmed Problem Gastroesophageal reflux disease (516303804) GERD without esophagitis (K21.9) Active confirmed Problem Pain in limb (86039646) Pain of left arm (M79.602) Active confirmed Problem Thrombocytopenia (088312930) Thrombocytopenia (D69.6) Active confirmed Problem Carpal tunnel syndrome of right wrist (216672102587696) Carpal tunnel syndrome of right wrist (G56.01) Active confirmed Problem Obstructive sleep apnea syndrome (40359148) PJ (obstructive sleep apnea) (G47.33) Active confirmed Problem Abnormal gait (48806543) Imbalance (R26.89) Active confirmed Problem Pain in limb (60672944) Pain of right arm (M79.601) Active confirmed Problem Prostatic hypertrophy (835983562) Prostatic hypertrophy (N40.0) Active confirmed Problem Elevated PSA (670877470) Elevated PSA (R97.20) Active confirmed Problem Significant coronary bypass graft disease (699772395) Coronary artery disease involving coronary bypass graft of 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 (I25.810) Active confirmed Problem Biliary sludge (disorder) (26791568) Biliary sludge determined by ultrasound (K83.8) Active confirmed Problem History of excision of intestinal structure (761097531) History of laparoscopic cholecystectomy (Z90.49) Active confirmed Vital Signs Heart Rate 64 /min 08/26/2024 Blood pressure diastolic 86 mm Hg 08/26/2024 Height 72.5 in 08/26/2024 Blood pressure systolic 160 mm Hg 08/26/2024 Weight 230.2 lbs 08/26/2024 BMI 30.79 kg/m2 08/26/2024 Encounters Encounter Location Date Provider Diagnosis [facility] 0 [facility] [address] [id number] 12/12/2023 Shy Faulkner B02.9 [facility] 1209 [facility] [address] [id number] 05/20/2024 J Cyrus Kim Essential hypertensi on I10 ; Coronary artery disease involving coronary bypass graft of 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 I25.810 ; Paresthesia of skin R20.2 and PJ (obstructive sleep apnea) G47.33 [facility] [facility] [address] [id number] 06/18/2024 J Cyrus Julio Essential hypertensi on I10 [facility] [address] [place] [facility] [address] [id number] 07/11/2024 J Cyrus Julio Essential hypertensi on I10 and BMI 30.0-30.9,adult Z68.30 [facility] [address] [place] [facility] [address] [id number] 08/26/2024 J Cyrus Julio Essential hypertensi on I10 ; Coronary artery disease involving coronary bypass graft of 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 I25.810 and GERD without esophagitis K21.9 [facility] [address] [place], [place] [id number] 11/27/2023 Wilbert Kim Varicella zoster B02 .9 [facility] [address] [place], [place] [id number] 12/04/2023 Wilbert Kim [facility] [address] [place], [place] [id number] 12/26/2023 Shy Owen [facility] [address] [place], [place] [id number] 02/26/2024 Wilbert Kim Shingles B02.9 [facility] [address] [place], [place] [id number] 07/15/2024 Wilbert Kim Assessments Encounter Date Diagnosis [...] artery disease involving coronary bypass graft of 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 (ICD-10 - I25.810) 06/18/2024 Essential hypertension (ICD-10 - I10) 07/11/2024 Essential hypertension (ICD-10 - I10) 07/11/2024 BMI 30.0-30.9,adult (ICD-10 - Z68.30) 08/26/2024 Essential hypertension (ICD-10 - I10) cont present treatment 08/26/2024 Coronary artery disease involving coronary bypass graft of 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 (ICD-10 - I25.810) 05/20/2024 Paresthesia of skin (ICD-10 - R20.2) 05/20/2024 PJ (obstructive sleep apnea) (ICD-10 - G47.33) 08/26/2024 GERD without esophagitis (ICD-10 - K21.9) Plan Of Treatment Pending Test Test Name Order Date Ultrasound : Kidneys, bilateral 07/12/19 25 P-Comprehensive Metabolic Panel (CMP) Next Appt Details Provider Name:Wilbert Bridges Mai er, 10/28/2024 11:00:00 AM, [address], [address], [place], [place], [id number], Insurance Providers Payer Name Payer Address Payer Phone Subscriber Number Group Number Insured Name Patient Relationship to Insured Coverage Start Date Coverage End Date [employer] [address] [place] [address] [id number] CHITO BROCK Self - patient is the insured Medical (General) History Medical History History ICD Code HTN 02/22/2019 Carotids < 20% 01/2020 mild thrombocytopenia Pfizer Covid Vaccine COVID 19 Infection 12/2020 COVID 19 Booster 11/13/2020 COVID 01 DEC 2021 Flu shot 2021 Surgical History Surgery Date(Month/Year) Hernia Surgery Heart cath 06/01 double bypass/open heart - 06/12/18 Heart cath 10/2018 cholecystectomy 2019 Hospitalization History Reason Date(Month/Year) [place] Acid reflux 04/14/19 [facility] - chest pain, CAD 05/23-06/17/18
--- OUTSIDE RECORDS SUMMARY | 2024-09-03 08:12 | XMS_ITS | Encounter Summary ---
Author Organization [employer] ([place], [place], [place], [place]) Address [address] [place] [address] Care Team Providers Care Stock Clerk Self Service Store Name Role Phone Unavailable Primary Care Provider Unavailabl e Encounter Details Date Type Department Care Team (Late st Contact Info) Description 02/08/2020 Transcribed Document [facility] [place] Family Medicine [address] [place] [address] ProviderRaj MD [address] [place] [address] Social History Tobacco Use Types Packs/Day Years Used Date Smoking Tobacco: Never Assessed Sex and Gender Information Value Date Recorded Sex Assigned at Male 08/12/2021 6:27 PM CDT Legal Sex Male 7:15 PM CDT Gender Identity Male 08/12/2021 6:27 PM CDT Sexual Orientation Not on file documented as of this encounter Miscellaneous Notes * Cerner Conversion Note - Raj Nguyen MD - 02/08/2020 12:57 AM [place] [address] BRAVOGUANAKITO MALONEY MANISH BARTOLO :1955 Visit Time:02/07/2020 Your Visit Summary Your [...] 3 days Where: [address] [facility] [place] [address]- [employer] (1) Allergies No Known Medication Allergies Immunizations [...] range between ( 1.0 and 7.0 ) Kerr #: 0.62 K/uL -- Normal range between ( 0.24 and 0.82 ) Eos #: 0.15 K/uL -- Normal range between ( 0.04 and 0.54 ) Kerr %: 11.1 % -- Normal range between [...] ??? Do not drink alcohol. ??? Take kcfz-zpo-jnelgtl and prescription medicines only as told by [...] 01/30/2006 Document Revised: 11/01/2018 Document Reviewed: 11/01/2018 [employer] Patient Education ?? 2020 [employer] Paresthesia Paresthesia is an abnormal burning or [...] or sweet foods. General instructions ??? Take rfgk-fkz-qywsjdq and prescription medicines only as told by [...] 01/20/2003 Document Revised: 02/25/2019 Document Reviewed: 02/08/2018 [employer] Patient Education ?? 2020 [employer] Hypertension, Adult High blood pressure (hypertension) [...] provider. This is important. Medicines ??? Take rond-tdu-mypdpzq and prescription medicines only as told by [...] 01/30/2006 Document Revised: 10/10/2018 Document Reviewed: 10/10/2018 [employer] Patient Education ?? 2020 Ellie. Emergency Awareness and Preventative Care STROKE is [...] Assistance with quitting is available by contacting 9-328-YXSW-NOW. This is a free resource providing counseling, [...] including: emergency, radiology, or pathology physicians. Patient Name:LAWRENCE MALONEY MANISH MCFARLAND I have received this information and was given the opportunity to ask questions. Patient/Sewing Techniques Demonstrator Name: Patient/Sewing Techniques Demonstrator Signature: Relationship to Patient: Clinician/Hospital Sewing Techniques Demonstrator Signature: Please Provide a Telephone Number Where You Can Be Reached: Is it Permissible To Leave a Message? Date: documented in this encounter Plan of Treatment Not on file documented as of this encounter Visit Diagnoses Not on filedocumented in this encounter
--- OUTSIDE RECORDS SUMMARY | 2024-09-03 08:12 | XMS_ITS | Encounter Summary ---
Author Organization [employer] ([place], [place], [place], [place]) Address [address] [place] [address] Care Team Providers Care Immersion Metal Cleaner Name Role Phone Unavailable Primary Care Provider Unavailabl e Encounter Details Date Type Department Care Team (Late st Contact Info) Description 02/07/2020 Transcribed Document [facility] [place] Family Medicine [address] [place] [address] ProviderRaj MD [address] [place] [address] Social History Tobacco Use Types Packs/Day Years Used Date Smoking Tobacco: Never Assessed Sex and Gender Information Value Date Recorded Sex Assigned at Male 08/12/2021 6:27 PM CDT Legal Sex Male 7:15 PM CDT Gender Identity Male 08/12/2021 6:27 PM CDT Sexual Orientation Not on file documented as of this encounter Miscellaneous Notes * Cerner Conversion Note - Raj ProviderMD - 02/07/2020 10:59 PM JUKE BOX MECHANIC ED Assessment Entered On: 02/08/2020 1:00 EST Performed On: 02/08/2020 0:58 EST by JU CLARK RN ED Quick Look Assessment Level of Consciousness : Alert, Awake Affect/Behavior : Appropriate, Calm, Cooperative JU CLARK RN - 02/08/2020 0:58 EST ED General-Functional Assess Information Obtained From : Patient Communication Barrier : None Primary Language : Italian Any Spiritual/Cultural Needs or Requests : No [...] RN) EENT Assessment EENT Assessment WDL : [facility] JU CLARK RN 02/08/2020 0:58 EST Cardiovascular ASMT, ED Cardiovascular Assessment WDL : [facility] with exceptions (Comment: patient complains of [...] Right : 2+ normal JU CLARK RN 02/08/2020 0:58 EST Respiratory Respiratory Assessment WDL : [facility] JU CLARK RN 02/08/2020 0:58 EST Breath Sounds Assessment Grid All Lobes Breath Sounds : Clear LUCINA : Clear LLL : Clear RUL : Clear RML : Clear RLL : Clear JU CLARK RN 02/08/2020 0:58 EST Gastrointestinal ED Gastrointestinal Assessment WDL : [facility] JU CLARK RN 02/08/2020 0:58 EST Genitourinary Assessment, ED Genitourinary Assessment WDL : [facility] JU CLARK RN - 02/08/2020 0:58 EST Musculoskeletal Musculoskeletal Assessment WDL : JU THAKKRA RN - 02/08/2020 0:58 EST Integumentary Assessment Integumentary Assessment WDL : JU THAKKAR RN - 02/08/2020 0:58 EST Neurologic ASMT, ED Neurologic Assessment WDL : WDL Neurological Symptoms : None Level of Consciousness : Alert, Awake Affect/Behavior : Appropriate, Calm, Cooperative Orientation : Oriented x 4 JU CLARK RN - 02/08/2020 0:58 EST Electronically signed by Lilly [facility] Conversion Director Toxicology Cerner at 05/31/2022 10:26 PM CDT documented in this encounter Plan of Treatment Not on file documented as of this encounter Visit Diagnoses Not on filedocumented in this encounter
--- OUTSIDE RECORDS SUMMARY | 2024-09-03 08:12 | XMS_ITS | Encounter Summary ---
Author Organization [facility] [facility] ([place], [place], [place], [place]) Address [address] [place] [address] Care Team Providers Care Tester Printed Circuit Boards Name Role Phone Unavailable Primary Care Provider Unavailabl e Encounter Details Date Type Department Care Team (Late st Contact Info) Description 02/08/2020 Transcribed Document [facility] Radiology [address] [place] [address] Daniel Huggins MD [address] [place] [address] Dept[place] [address] Social History Tobacco Use Types Packs/Day Years [...]
--- OUTSIDE RECORDS SUMMARY | 2024-09-03 08:12 | XMS_ITS | Referral Summary ---
Author Organization [employer] ([place], [place], [place], [place]) Address [address] [place] [address] Care Team Providers Care Mathematics Lecturer Name Role Phone Unavailable Primary Care Provider [...]
--- OUTSIDE RECORDS SUMMARY | 2024-09-03 08:12 | XMS_ITS | Encounter Summary ---
Author Organization [employer] ([place], [place], [place], [place]) Address [address] [place] [address] Care Team Providers Care Central Lab Technician Name Role Phone Unavailable Primary Care Provider Unavailabl e Encounter Details Date Type Department Care Team (Late st Contact Info) Description 02/08/2020 Transcribed Document [facility] [place] Family Medicine [address] [place] [address] ProviderRaj MD [address] [place] [address] Social History Tobacco Use Types [...] - Historical ProviderMD - 02/08/2020 12:55 AM STEAM ENGINEER Electronically signed by Lilly [facility] Conversion All Source Intelligence Technician Cerner at 05/31/2022 10:14 PM CDT documented in this encounter Plan of Treatment Not on file documented as of this encounter Visit Diagnoses Not on filedocumented in this encounter
--- OUTSIDE RECORDS SUMMARY | 2024-09-03 08:12 | XMS_ITS | Clinical Summary ---
Author Organization [facility] Address [address] [place] [address] Care Team Providers Care Educational Advisor Name Role Phone Robles Quezada MD Primary Care Provider Allergies No known active allergies Medications lisinopril (PRINIVIL,ZESTRI L) 10 MG tablet Take 10 mg by mouth Daily. Active Krill Oil 500 MG capsule Take 500 mg by mouth 2 (Two) Times a Day. Active aspirin 81 MG EC tablet Take 81 mg by mouth Daily. Active omeprazole (priLOSEC) 20 MG capsule Take 20 mg by mouth Daily. Active Cholecalciferol (VITAMIN D3) 2000 units tablet Take 2,000 Units by mouth Daily. Active Family History Medical History Relation Name Comments Heart disease Father Cancer Mother breast Hypertension Mother breast Relation Name Status Comments Father Mother breast Alive Social History Tobacco Use Types Packs/Day Years Used Date Smoking Tobacco: Never Smokeless Tobacco: Current Chew Alcohol Use Standard Drinks/Week Comments Yes 0 (1 standard drink = 0.6 oz pur e alcohol) social Abuse Screen Answer Date Recorded Unsafe at Home or Work/School Not on file Feels Threatened by Someone? Not on file 11/2022 Does Anyone Keep You from Co ntacting Others or Doint Things Outside the Home? Not on file 11/22/2022 Physical Sign of Abuse Present Not on file 1 Housing Stability Answer Date Recorded Current Living Arrangements Not on file 11/13 Potentially Unsafe Housing Conditions Not on monika e 11/22/2022 Family and Community Support Answer Ivan e Recorded Help with Day-to-Day Activities Not on file 11/22/2022 Lonely or Isolated Not on file 11/22/2022 Employment Answer Date Recorded Do you want help finding or keeping work or a mitchel b? Not on file 11/22/2022 Disabilities Answer Date Recorded Concentrating, Remembering, or Making Decisions Difficulty Not on file 11/22/2022 Doing Errands Independently Difficulty Not on fi le 11/22/2022 Education Answer Date Recorded Help with school or training? Not on file Preferred Language Not on file 11/22/2022 Sex and Gender Information Value Date Recorded Sex Assigned at Not on file Legal Sex Male 1:44 PM EDT Gender Identity Not on file Sexual Orientation Not on file Last Filed Vital Signs Vital Sign Reading Time Taken Comments Blood Pressure 158/88 04/14/2017 8:02 AM EST Pulse 75 04/14/2017 8:02 AM EST Temperature 36.9 C (98.4 F) 04/14/2017 8:02 AM EST Respiratory Rate - - Oxygen Saturation 94% 04/14/2017 8:02 AM EST Inhaled Oxygen Concentration - - Weight 106 kg (234 lb) 04/14/2017 8:02 AM EST Height 185.4 cm (6' 1 ) 04/14/2017 8:02 AM EST Body Mass Index 30.87 04/14/2017 8:02 AM EST Plan of Treatment Health Maintenance Due Date Last Done Comments TDAP/TD VACCINES (1 - Tdap) 1976 COLOGUARD 2002 COLON CANCER SCREENING 5 YEAR SIGMOIDOSCOPY 2002 COLONOSCOPY 2002 [address]AL CANCER SCREENING 2002 CT COLONOGRAPHY 2002 FECAL OCCULT BLOOD TEST 2002 FIT Testing (1 year) 2002 Pneumococcal Vaccine 50+ (1 of 1 - PCV) 09/23/2007 ZOSTER VACCINE (1 of 2) 09/23/2007 ANNUAL PHYSICAL 04/13/2017 HEPATITIS C SCREENING 04/13/2017 COVID-19 Vaccine ( - 2023- season) 2023 INFLUENZA VACCINE 11/13/2024 AAA SCREEN ONCE Completed 10/09/2013 Procedures Procedure Name Priority Date/Time Associated Diagnosis Comments CT ABDOMEN PELVIS WO CONTRAST Routine 10/09/2013 12:04 AM EDT from Last 3 Months or Most Recently Relevant to Health Maintenance Results * CT ABDOMEN PELVIS WITHOUT CONTRAST (10/09/2013 12:04 AM EDT) Anatomical Region Laterality Modality Upper Extremities, Shoulder N/A Comp uted Tomography 10/09/2013 12:0 4 AM EDT Narrative 10/09/2013 12:50 AM EDT EXAM: CT Abdomen and Pelvis Without Intravenous Contrast CLINICAL HISTORY: 58 years old, male; Flank pain chief complaint: Left flank pain with dysuria. Modifying factors (worse with urinating) not relieved by anything. Onset was today and it is still present but is better now. It was abrupt in onset. t is described as being severe and in the area of the left flank and radiating to the groin. The quality is noted to be sharp. No bladder dysfunction, bowel dysfunction, sensory loss or motor loss. Additional history - the patient reports flank pain throughout the day today, and this evening had sudden worsening with severe left flank pain that has now nearly resolved. The patient also reports some dysuria and hesitancy with pain radiating down into the groin. No HX of similar. patient denies an injury. TECHNIQUE: Axial computed tomography images of the abdomen and pelvis without intravenous contrast. COMPARISON: None. FINDINGS: Mild patchy atelectasis at bilateral lung bases. There is a 0.9 cm hypodensity in the left hepatic lobe on series 2 image 23, etiology and clinical significance uncertain. The gallbladder, spleen, pancreas, adrenal glands, and kidneys are unremarkable within the limits of noncontrast study. Mild inflammatory change of the left perinephric/periureteral fat. No hydronephrosis on either side. There is a 0.3 cm stone in the posterior bladder in the midline on series 2 image 86 that has presumably recently passed from the left renal collecting system. A normal-appearing appendix is seen in the right lower quadrant. No evidence of bowel obstruction. Scattered colonic diverticula without evidence of diverticulitis. No free intraperitoneal air or fluid is seen. The abdominal aorta is non-aneurysmal. Small fat-containing umbilical hernia is noted. Mild degenerative changes of the lumbar spine. At L5, note is made of a left pars interarticularis defect as well as incomplete fusion of the posterior elements. Impression: 1. There is a 0.3 cm stone in the posterior bladder that has presumably recently passed from the left renal collecting system. No hydronephrosis. Reading Radiologist- CARLOZ CALDERON Releasing Radiologist- CARLOZ CALDERON Released Date Time- 10/09/13 0050 Belt Fixer- O.A.M. Procedure Note Interface, See Report / Carloz Calderon MD - 11/25/2014 EXAM: CT Abdomen and Pelvis Without Intravenous Contrast CLINICAL HISTORY: 58 years old, male; Flank pain chief complaint: Left flank pain with dysuria. Modifying factors (worse with urinating) not relieved by anything. Onset was today and it is still present but is better now. It was abrupt in onset. t is described as being severe and in the area of the left flank and radiating to the groin. The quality is noted to be sharp. No bladder dysfunction, bowel dysfunction, sensory loss or motor loss. Additional history - the patient reports flank pain throughout the day today, and this evening had sudden worsening with severe left flank pain that has now nearly resolved. The patient also reports some dysuria and hesitancy with pain radiating down into the groin. No HX of similar. patient denies an injury. TECHNIQUE: Axial computed tomography images of the abdomen and pelvis without intravenous contrast. COMPARISON: None. FINDINGS: Mild patchy atelectasis at bilateral lung bases. There is a 0.9 cm hypodensity in the left hepatic lobe on series 2 image 23, etiology and clinical significance uncertain. The gallbladder, spleen, pancreas, adrenal glands, and kidneys are unremarkable within the limits of noncontrast study. Mild inflammatory change of the left perinephric/periureteral fat. No hydronephrosis on either side. There is a 0.3 cm stone in the posterior bladder in the midline on series 2 image 86 that has presumably recently passed from the left renal collecting system. A normal-appearing appendix is seen in the right lower quadrant. No evidence of bowel obstruction. Scattered colonic diverticula without evidence of diverticulitis. No free intraperitoneal air or fluid is seen. The abdominal aorta is non-aneurysmal. Small fat-containing umbilical hernia is noted. Mild degenerative changes of the lumbar spine. At L5, note is made of a left pars interarticularis defect as well as incomplete fusion of the posterior elements. Impression: 1. There is a 0.3 cm stone in the posterior bladder that has presumably recently passed from the left renal collecting system. No hydronephrosis. Reading Radiologist- CARLOZ RAYMUNDOMOOD Releasing Radiologist- CARLOZ A HELLEN Released Date Time- 10/09/13 0050 Belt Fixer- O.A.M. Philipp Elizabeth MD IMG CT ORDERABLES Final R esult from Last 3 Months or Most Recently Relevant to Health Maintenance Insurance MARY BETH SANTOS [id number] [place] [address] PPO Care Teams Educational Advisor Relationship Specialty Start Date End Date Robles Quezada MD [address] [place] [address] M[place] DAVIS [id number] PCP - General Family Medicine 03/13/17
--- OUTSIDE RECORDS SUMMARY | 2024-09-03 08:12 | XMS_ITS | Encounter Summary ---
Author Organization [employer] ([place], [place], [place], [place]) Address [address] [place] [address] Care Team Providers Care Materials And Corrosion Engineer Name Role Phone Unavailable Primary Care Provider Unavailabl e Encounter Details Date Type Department Care Team (Late st Contact Info) Description 02/07/2020 Transcribed Document [facility] [place] Family Medicine [facility] [place] [address] ProviderRaj MD [address] [place] [address] Social History Tobacco Use Types [...] - Historical ProviderMD - 02/07/2020 10:59 PM GEOSPATIAL SYSTEMS INTEGRATOR ED Triage Entered On: 02/07/2020 23:09 EST [...] EST DCP GENERIC CODE Tracking Group : [facility] Tracking Acuity : 3 - [...] 23:12:51 EST) Problems(Active) HTN (hypertension) (SNOMED CT :1387901417 ) Name of Problem: HTN (hypertension) ; Recorder: RILEY PAGAN RN; Confirmation: Confirmed ; Classification: Medical ; Code: [id number] ; Contributor System: Product Hunt ; Last Updated: 02/07/2020 23:04 EST ; Life Cycle Date: 02/07/2020 ; Life Cycle Status: Active ; Vocabulary: SNOMED CT S/P cholecystectomy (SNOMED CT :7097878416 ) Name of Problem: S/P cholecystectomy ; Recorder: RILEY PAGAN RN; Confirmation: Confirmed ; Classification: Medical ; Code: [id number] ; Contributor System: Product Hunt ; Last Updated: 02/07/2020 23:05 EST ; Life Cycle Date: 02/07/2020 ; Life Cycle Status: Active ; Vocabulary: SNOMED CT S/P hernia repair (SNOMED CT :4827317769 ) Name of Problem: S/P hernia repair ; Recorder: RILEY PAGAN RN; Confirmation: Confirmed ; Classification: Medical ; Code: [id number] ; Contributor System: Product Hunt ; Last Updated: 02/07/2020 23:05 EST ; Life Cycle Date: 02/07/2020 ; Life Cycle Status: Active ; Vocabulary: SNOMED CT Diagnoses(Active) Arm pain-swelling Date: 02/07/2020 ; Diagnosis Type: Reason For Visit ; Confirmation: Complaint of ; Clinical Dx: Arm pain-swelling ; Classification: Medical ; Clinical Service: Emergency medicine ; Code: PNED ; Probability: 0 ; Diagnosis Code: [id number] Back pain Date: 02/07/2020 ; Diagnosis Type: Reason For Visit ; Confirmation: Complaint of ; Clinical Dx: Back pain ; Classification: Medical ; Clinical Service: Emergency medicine ; Code: PNED ; Probability: 0 ; Diagnosis Code: [id number] HTN - Hypertension Date: 02/07/2020 ; Diagnosis Type: Reason For Visit ; Confirmation: Complaint of ; Clinical Dx: HTN - Hypertension ; Classification: Medical ; Clinical Service: Emergency medicine ; Code: PNED ; Probability: 0 ; Diagnosis Code: [id number] ED Height and Weight Height Source : Measured Height Entry Format : [place] Height, Feet : 6 ft(Converted to: 183 cm, 72 Inch) Height, Inches : 1 Inch(Converted to: 0 ft 1 Inch, 2.54 cm) Clinical Height : 185.42 cm Weight Source, ED : Standing scale Weight Entry Format : [place] Weight, Pounds : 215 lb Clinical Dosing Weight : 97.73 kg Body Surface Area (BSA) : 2.22 m2 Body Mass Index : 28.4 kg/m2 (HI) [place] Body Weight (IBW) : 78.88 kg RILEY [...]
--- OUTSIDE RECORDS SUMMARY | 2024-09-03 08:12 | XMS_ITS | Encounter Summary ---
Author Organization [employer] ([place], [place], [place], [place]) Address [address] [place] [address] Care Team Providers Care Cut Off Sawyer [employer] Name Role Phone Unavailable Primary Care Provider Unavailabl e Encounter Details Date Type Department Care Team (Late st Contact Info) Description 02/07/2020 Transcribed Document [facility] [place] Family Medicine [address] [place] [address] ProviderRaj MD [address] [place] [address] Social History Tobacco Use Types [...] - Historical ProviderMD - 02/07/2020 10:59 PM INDUSTRIAL ECOLOGIST [place] Suicide Severity Rating Scale (C-SSRS) Entered On: 02/08/2020 1:00 EST Performed On: 02/08/2020 0:58 EST by JU CLARK RN [place] Suicide Severity Rating Scale (C-SSRS) CSSRS Past [...]
--- OUTSIDE RECORDS SUMMARY | 2024-09-03 08:13 | XMS_ITS | Data Portability ---
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 Patient is not interested in medications or treatment for BPH symptoms. [email or web address] Not available 09/03/2020 15:53:42 01/26/2023 01/26/2023 PSA order provided. Patient is not interested in medications or treatment for BPH symptoms. Follow-up in 1 year. [email or web address] Not available 01/26/2023 15:27:44 08/10/2023 08/10/2023 Tamsulosin for medical management of lower urinary symptoms. Monitor PSA trend. [email or web address] Not available 08/13/2023 11:12:13 01/18/2024 01/18/2024 Tamsulosin for medical management of lower urinary symptoms. Continue to monitor PSA trend. [email or web address] Not available 01/29/2024 10:56:26 07/18/2024 07/18/2024 - 68-year-old male with history [...] Modified Time Details Appointments RECHECK 2024 01:15P Juli ZAMAN MD Not available Not available Not available Lab urinalysi s panel, auto 2024 025 [email or web address] [facility] With [facility], [address] [place], [place], [address], 07/21/2024 10:27:47 urinalysi s panel, auto 2023 024 [email or web address] 4 [facility] With [facility], [address] [place], [place], [address], 08/13/2023 11:12:15 urinalysi s panel, auto 2022 023 [email or web address] 4 [facility] With [facility], [address] [place], [address], 01/29/2023 18:00:29 PSA, serum or plasma [address] Centralized Scheduling, [address] [place], [address], 02/20/2024 10:06:41 urinalysi s panel, auto 2020 021 [email or web address] 4 [facility] Services With [facility], [address] [place] [address] [place], [address], 09/03/2020 15:53:43 Referral None recorded. Procedures None recorded. Surgeries None recorded. Imaging None recorded. Medication Orders None recorded. Patient TargetsNo targets recorded. Patient Instructions Encounter Date Encounter Id Patient Instructions Last Modified By Organization Details Last Modified Time 08/10/2023 [id number] learning about healthy weight [email or web address] Not available 08/13/2023 11:12:13 01/18/2024 [id number] learning about healthy weight [email or web address] Not available 01/29/2024 10:56:26 07/18/2024 [id number] learning about healthy weight [email or web address] Not available 07/21/2024 10:27:47 - Continue takin [...] Abnormal Flag Note LastModifiedBy Organization Detail LastModifiedTime 09/04/19 21 09/03/2020 urina lysis panel , auto Unknown Analyte Clean Catch Not Available [facility] Extended Services With [address], [place], [address], 09/03/2020 14:53:53 09/04/1909/03/2020 urina lysis panel , auto Unknown Analyte Yellow Not Available [facility] Extended Services With [address], [place], [address], 09/03/2020 14:53:53 09/04/1909/03/2020 urina lysis panel , auto Unknown Analyte Clear Not Available [facility] Extended Services With [address], [place], [address], 09/03/2020 14:53:53 09/04/1909/03/2020 urina lysis panel , auto Unknown Analyte 1.020 Not Available [facility] Extended Services With [address], [place], [address], 09/03/2020 14:53:53 09/04/1909/03/2020 urina lysis panel , auto Unknown Analyte 1.003- 1.035 Not Available [facility] Extended Services With [address] [place], [address], 09/03/2020 14:53:53 09/04/1909/03/2020 urina lysis panel , auto Unknown Analyte 5.0 Not Available [facility] Extended Services With [address] [place], [place], [address], 09/03/2020 14:53:53 09/04/1909/03/2020 urina lysis panel , auto Unknown Analyte 5.0-8. 0 Not Available [facility] Extended Services With [address] [place], [address], 09/03/2020 14:53:53 09/04/1909/03/2020 urina lysis panel , auto Unknown Analyte Negati ve Not Available [facility] Extended Services With [address] [place], [address], 09/03/2020 14:53:53 09/04/1909/03/2020 urina lysis panel , auto Unknown Analyte Negati ve Not Available [facility] Extended Services With [address] [place], [address], 09/03/2020 14:53:53 09/04/19 21 09/03/2020 urina lysis panel , auto Unknown Analyte Negati ve Not Available [facility] Extended Services With [address] [place], [address], 09/03/2020 14:53:53 09/04/1909/03/2020 urina lysis panel , auto Unknown Analyte Negati ve Not Available [facility] Extended Services With [address] [place], [address], 09/03/2020 14:53:53 09/04/19 21 09/03/2020 urina lysis panel , auto Unknown Analyte Negati ve Not Available [facility] Extended Services With [address] [place], [address], 09/03/2020 14:53:53 09/04/19 21 09/03/2020 urina lysis panel , auto Unknown Analyte Negati ve Not Available [facility] Extended Services With [address], [place], [address], 09/03/2020 14:53:53 09/04/19 21 09/03/2020 urina lysis panel , auto Unknown Analyte Normal Not Available [facility] Extended Services With [address] [place], [address], 09/03/2020 14:53:53 09/04/19 21 09/03/2020 urina lysis panel , auto Unknown Analyte Normal Not Available [facility] Extended Services With [address] [place], [address], 09/03/2020 14:53:53 09/04/19 21 09/03/2020 urina lysis panel , auto Unknown Analyte Negati ve Not Available [facility] Extended Services With [address], [place], [address], 09/03/2020 14:53:53 09/04/1909/03/2020 urina lysis panel , auto Unknown Analyte Negati ve Not Available [facility] Extended Services With [address], [place], [address], 09/03/2020 14:53:53 09/04/19 21 09/03/2020 urina lysis panel , auto Unknown Analyte Normal Not Available [facility] Extended Services With [address] [place], [address], 09/03/2020 14:53:53 09/04/19 21 09/03/2020 urina lysis panel , auto Unknown Analyte Normal 1 mg/dl Not Available [facility] Extended Services With [address] [place], [address], 09/03/2020 14:53:53 09/04/19 21 09/03/2020 urina lysis panel , auto Unknown Analyte Negati ve Not Available [facility] Extended Services With [address] [place], [address], 09/03/2020 14:53:53 09/04/19 21 09/03/2020 urina lysis panel , auto Unknown Analyte Negati ve Not Available [facility] Extended Services With [address] [place], [address], 09/03/2020 14:53:53 09/04/19 21 09/03/2020 urina lysis panel , auto Unknown Analyte Negati ve Not Available [facility] Extended Services With [address] [place], [address], 09/03/2020 14:53:53 09/04/19 21 09/03/2020 urina lysis panel , auto Unknown Analyte Negati ve Not Available [facility] Extended Services With [address] [place], [address], 09/03/2020 14:53:53 01/27/2001/26/2023 urina lysis panel , auto Unknown Analyte Clean Catch Not Available [facility] Extended Services With [address] [place], [address], 01/26/2023 15:33:53 01/27/20 23 01/26/2023 urina lysis panel , auto Unknown Analyte Yellow Not Available [facility] Extended Services With [address] [place], [address], 01/26/2023 15:33:53 01/27/20 23 01/26/2023 urina lysis panel , auto Unknown Analyte Clear Not Available [facility] Services With [address], [place], [address], 01/26/2023 15:33:53 01/27/20 23 01/26/2023 urina lysis panel , auto Unknown Analyte 1.020 Not Available [facility] Extended Services With [address], [place], [address], 01/26/2023 15:33:53 01/27/20 23 01/26/2023 urina lysis panel , auto Unknown Analyte 1.003- 1.035 Not Available [facility] Extended Services With [address], [place], [address], 01/26/2023 15:33:53 01/27/20 23 01/26/2023 urina lysis panel , auto Unknown Analyte 5.0 Not Available [facility] Extended Services With [address], [place], [address], 01/26/2023 15:33:53 01/27/20 23 01/26/2023 urina lysis panel , auto Unknown Analyte 5.0-8. 0 Not Available [facility] Extended Services With [address], [place], [address], 01/26/2023 15:33:53 01/27/20 23 01/26/2023 urina lysis panel , auto Unknown Analyte Negati ve Not Available [facility] Extended Services With [address], [place], [address], 01/26/2023 15:33:53 01/27/20 23 01/26/2023 urina lysis panel , auto Unknown Analyte Negati ve Not Available [facility] With [address], [place], [address], 01/26/2023 15:33:53 01/27/20 23 01/26/2023 urina lysis panel , auto Unknown Analyte Negati ve Not Available [facility] Extended Services With [address] [place], [address], 01/26/2023 15:33:53 01/27/20 23 01/26/2023 urina lysis panel , auto Unknown Analyte Negati ve Not Available [facility] Extended Services With [address] [place], [address], 01/26/2023 15:33:53 01/27/20 23 01/26/2023 urina lysis panel , auto Unknown Analyte Negati ve Not Available [facility] Extended Services With [address] [place], [address], 01/26/2023 15:33:53 01/27/20 23 01/26/2023 urina lysis panel , auto Unknown Analyte Negati ve Not Available [facility] Extended Services With [address] [place], [address], 01/26/2023 15:33:53 01/27/20 23 01/26/2023 urina lysis panel , auto Unknown Analyte Normal Not Available [facility] Services With [address] [place], [address], 01/26/2023 15:33:53 01/27/20 23 01/26/2023 urina lysis panel , auto Unknown Analyte Normal Not Available [facility] Services With [address] [place], [address], 01/26/2023 15:33:53 01/27/20 23 01/26/2023 urina lysis panel , auto Unknown Analyte Negati ve Not Available [facility] With [address], [place], [address], 01/26/2023 15:33:53 01/27/20 23 01/26/2023 urina lysis panel , auto Unknown Analyte Negati ve Not Available [facility] Extended Services With [address], [place], [address], 01/26/2023 15:33:53 01/27/20 23 01/26/2023 urina lysis panel , auto Unknown Analyte 1 mg/dl Not Available [facility] Extended Services With [address], [place], [address], 01/26/2023 15:33:53 01/27/20 23 01/26/2023 urina lysis panel , auto Unknown Analyte Normal 1 mg/dl Not Available [facility] Extended Services With [address], [place], [address], 01/26/2023 15:33:53 01/27/20 23 01/26/2023 urina lysis panel , auto Unknown Analyte Negati ve Not Available [facility] Extended Services With [address], [place], [address], 01/26/2023 15:33:53 01/27/20 23 01/26/2023 urina lysis panel , auto Unknown Analyte Negati ve Not Available [facility] Extended Services With [address], [place], [address], 01/26/2023 15:33:53 01/27/20 23 01/26/2023 urina lysis panel , auto Unknown Analyte Negati ve Not Available [facility] Extended Services With [address], [place], [address], 01/26/2023 15:33:53 01/27/20 23 01/26/2023 urina lysis panel , auto Unknown Analyte Negati ve Not Available [facility] Extended Services With [address] [place], [address], 01/26/2023 15:33:53 08/10/19 24 08/10/2023 urina lysis panel , auto Unknown Analyte Clean Catch Not Available [facility] Extended Services With [address] [place], [address], 08/10/2023 15:25:50 08/10/19 24 08/10/2023 urina lysis panel , auto Unknown Analyte Yellow Not Available [facility] Extended Services With [address], [place], [address], 08/10/2023 15:25:50 08/10/19 24 08/10/2023 urina lysis panel , auto Unknown Analyte Clear Not Available [facility] Extended Services With [address], [place], [address], 08/10/2023 15:25:50 08/10/19 24 08/10/2023 urina lysis panel , auto Unknown Analyte 1.020 Not Available [facility] Extended Services With [address] [place], [address], 08/10/2023 15:25:50 08/10/19 24 08/10/2023 urina lysis panel , auto Unknown Analyte 1.003- 1.035 Not Available [facility] Extended Services With [address] [place], [address], 08/10/2023 15:25:50 08/10/19 24 08/10/2023 urina lysis panel , auto Unknown Analyte 5.0 Not Available [facility] Extended Services With [address], [place], [address], 08/10/2023 15:25:50 08/10/19 24 08/10/2023 urina lysis panel , auto Unknown Analyte 5.0-8. 0 Not Available [facility] Extended Services With [address] [place], [address], 08/10/2023 15:25:50 08/10/19 24 08/10/2023 urina lysis panel , auto Unknown Analyte Negati ve Not Available [facility] Extended Services With [address] [place], [address], 08/10/2023 15:25:50 08/10/19 24 08/10/2023 urina lysis panel , auto Unknown Analyte Negati ve Not Available [facility] Extended Services With [address] [place], [address], 08/10/2023 15:25:50 08/10/19 24 08/10/2023 urina lysis panel , auto Unknown Analyte Negati ve Not Available [facility] Extended Services With [address] [place], [address], 08/10/2023 15:25:50 08/10/19 24 08/10/2023 urina lysis panel , auto Unknown Analyte Negati ve Not Available [facility] Extended Services With [address] [place], [address], 08/10/2023 15:25:50 08/10/19 24 08/10/2023 urina lysis panel , auto Unknown Analyte Negati ve Not Available [facility] Extended Services With [address] [place], [address], 08/10/2023 15:25:50 08/10/19 24 08/10/2023 urina lysis panel , auto Unknown Analyte Negati ve Not Available [facility] Extended Services With [address] [place], [address], 08/10/2023 15:25:50 08/10/19 24 08/10/2023 urina lysis panel , auto Unknown Analyte Normal Not Available [facility] Extended Services With [address] [place], [address], 08/10/2023 15:25:50 08/10/19 24 08/10/2023 urina lysis panel , auto Unknown Analyte Normal Not Available [facility] Extended Services With [address] [place], [address], 08/10/2023 15:25:50 08/10/19 24 08/10/2023 urina lysis panel , auto Unknown Analyte Negati ve Not Available [facility] Extended Services With [address] [place], [address], 08/10/2023 15:25:50 08/10/19 24 08/10/2023 urina lysis panel , auto Unknown Analyte Negati ve Not Available [facility] Extended Services With [address] [place], [address], 08/10/2023 15:25:50 08/10/19 24 08/10/2023 urina lysis panel , auto Unknown Analyte 1 mg/dl Not Available [facility] Extended Services With [address] [place], [address], 08/10/2023 15:25:50 08/10/19 24 08/10/2023 urina lysis panel , auto Unknown Analyte Normal 1 mg/dl Not Available [facility] Extended Services With [address] [place], [address], 08/10/2023 15:25:50 08/10/19 24 08/10/2023 urina lysis panel , auto Unknown Analyte Negati ve Not Available [facility] Extended Services With [address] [place], [address], 08/10/2023 15:25:50 08/10/19 24 08/10/2023 urina lysis panel , auto Unknown Analyte Negati ve Not Available [facility] Extended Services With [address] [place], [address], 08/10/2023 15:25:50 08/10/19 24 08/10/2023 urina lysis panel , auto Unknown Analyte Negati ve Not Available [facility] Extended Services With [address] [place], [address], 08/10/2023 15:25:50 08/10/19 24 08/10/2023 urina lysis panel , auto Unknown Analyte Negati ve Not Available [facility] Extended Services With [address] [place], [address], 08/10/2023 15:25:50 07/19/19 25 07/18/2024 urina lysis panel , auto Unknown Analyte Clean Catch Not Available [facility] Extended Services With [address] [place], [address], 07/18/2024 13:54:44 07/19/19 25 07/18/2024 urina lysis panel , auto Unknown Analyte Yellow Not Available [facility] Extended Services With [address] [place], [address], 07/18/2024 13:54:44 07/19/19 25 07/18/2024 urina lysis panel , auto Unknown Analyte Clear Not Available [facility] Extended Services With [address], [place], [address], 07/18/2024 13:54:44 07/19/19 25 07/18/2024 urina lysis panel , auto Unknown Analyte 1.020 Not Available [facility] Extended Services With [address], [place], [address], 07/18/2024 13:54:44 07/19/19 25 07/18/2024 urina lysis panel , auto Unknown Analyte 1.003 - 1.030 Not Available [facility] Extended Services With [address], [place], [address], 07/18/2024 13:54:44 07/19/19 25 07/18/2024 urina lysis panel , auto Unknown Analyte 5.0 Not Available [facility] Extended Services With [address], [place], [address], 07/18/2024 13:54:44 07/19/19 25 07/18/2024 urina lysis panel , auto Unknown Analyte 5.0 - 8.0 Not Available [facility] Extended Services With [address], [place], [address], 07/18/2024 13:54:44 07/19/19 25 07/18/2024 urina lysis panel , auto Unknown Analyte Negati ve Not Available [facility] Extended Services With [address] [place], [address], 07/18/2024 13:54:44 07/19/19 25 07/18/2024 urina lysis panel , auto Unknown Analyte Negati ve Not Available [facility] Extended Services With [address] [place], [address], 07/18/2024 13:54:44 07/19/19 25 07/18/2024 urina lysis panel , auto Unknown Analyte Negati ve Not Available [facility] Extended Services With [address] [place], [address], 07/18/2024 13:54:44 07/19/19 25 07/18/2024 urina lysis panel , auto Unknown Analyte Negati ve Not Available [facility] Extended Services With [address] [place], [address], 07/18/2024 13:54:44 07/19/19 25 07/18/2024 urina lysis panel , auto Unknown Analyte Negati ve Not Available [facility] Extended Services With [address] [place], [address], 07/18/2024 13:54:44 07/19/19 25 07/18/2024 urina lysis panel , auto Unknown Analyte Negati ve Not Available [facility] Extended Services With [address] [place], [address], 07/18/2024 13:54:44 07/19/19 25 07/18/2024 urina lysis panel , auto Unknown Analyte Normal Not Available [facility] Extended Services With [address] [place], [address], 07/18/2024 13:54:44 07/19/19 25 07/18/2024 urina lysis panel , auto Unknown Analyte Normal Not Available [facility] Extended Services With [address] [place], [address], 07/18/2024 13:54:44 07/19/19 25 07/18/2024 urina lysis panel , auto Unknown Analyte Negati ve Not Available [facility] Extended Services With [address], [place], [address], 07/18/2024 13:54:44 07/19/19 25 07/18/2024 urina lysis panel , auto Unknown Analyte Negati ve Not Available [facility] Extended Services With [address] [place], [address], 07/18/2024 13:54:44 07/19/19 25 07/18/2024 urina lysis panel , auto Unknown Analyte 1 mg/dL Not Available [facility] Extended Services With [address] [place], [address], 07/18/2024 13:54:44 07/19/19 25 07/18/2024 urina lysis panel , auto Unknown Analyte Normal Not Available [facility] Extended Services With [address] [place], [address], 07/18/2024 13:54:44 07/19/19 25 07/18/2024 urina lysis panel , auto Unknown Analyte Negati ve Not Available [facility] Extended Services With [address] [place], [address], 07/18/2024 13:54:44 07/19/19 25 07/18/2024 urina lysis panel , auto Unknown Analyte Negati ve Not Available [facility] Extended Services With [address] [place], [address], 07/18/2024 13:54:44 07/19/19 25 07/18/2024 urina lysis panel , auto Unknown Analyte Negati ve Not Available [facility] Extended Services With [address], [place], [address], 07/18/2024 13:54:44 07/19/19 25 07/18/2024 urina lysis panel , auto Unknown Analyte Negati ve Not Available [facility] [place] Extended Services With [address], [place], [address], 07/18/2024 13:54:44 Result Notes None recorded. Problems Name Problem SNOMED Code Status Onset Date Resolution Date Notes Provider Name and Address Organization Details Recorded Time Prostate specific antigen outside reference range 930931356 Active 018 [facility] Problem Notes None recorded. Procedures Surgical History Date Name Laterality Status Provider Name and Address Organization Details Recorded Time 08/14/19 20 Cholecystectomy completed Murelene Jakob [facility] 09/19/2019 13:36:11 06/13/19 19 Heart Surgery completed Murelene Jakob [facility] 02/28/2019 14:50:57 02/18/19 19 Evening/Weekend/Ho liday Services completed Ele [place] [facility] 02/18/2018 09:36:39 Hernia Repair completed Murelene Jakob [facility] 02/23/2017 15:41:26 Imaging Results None recorded. [...] Updated DateTime 07/18/2024 185.42 cm 29 kg/m2 87929.32 [facility] 07/18/2024 13:54:08 Date Recorded Body height Body mass index (BMI) Body weight Provider Name and Address Organization Details Last Updated DateTime 08/10/2023 185.42 cm 28.5 kg/m2 03054.95 [facility] 08/10/2023 15:25:01 Date Recorded Body height Body mass index (BMI) Body weight Provider Name and Address Organization Details Last Updated DateTime 09/03/2020 185.42 cm 30.6 kg/m2 822497.43 g Ilda Popdle [facility] 09/03/2020 14:46:29 Date Recorded Body height Body mass index (BMI) Body weight Provider Name and Address Organization Details Last Updated DateTime 01/18/2024 185.42 cm 28.4 kg/m2 51358.36 [facility] 01/18/2024 16:10:43 Date Recorded Body height Body mass index (BMI) Body weight Provider Name and Address Organization Details Last Updated DateTime 01/26/2023 185.42 cm 30.6 kg/m2 711994.43 g Brenda Robert [facility] 01/26/2023 15:32:44 Social History Question Answer Notes LastModified by Organizat ion Details LastModified Time Tobacco Smoking Status Never Smoker Brenda Robert [facility] 02/23/2017 15:40:06 How Much Tobacco Do You Chew? None Information not available 02/28/2019 Marital Status Single [facility] Informatio n not available 02/23/2017 What Was [...] 15:38:11 Mother Family history of malignant neoplasm ett1 Not available 2017 15:38:35 Medical History Condition Response Hypertension Y Kidney Stones Y Past Encounters Encounter ID Performer Location Encounter Start Date Encounter Closed Date Diagnosis/Indication Diagnosis SNOMED-CT Code Diagnosis ICD10 Code Diagnosis Note [id number] ASHTYN ZAMAN MD [facility] [address] [address] 02/23/2017 15:23:32 03/06/2017 10:17:21 Prostate specific antigen above reference range 868700368 R97.20 Prostatitis 6634722 N41. 9 [id number] ASHTYN ZAMAN MD [facility] [address] [address] 04/06/2017 13:23:26 04/13/2017 09:39:00 Prostate specific antigen above reference range 757620198 R97.20 [id number] ASHTYN ZAMAN MD [facility] [address],[place] [address] 09/21/2017 13:41:01 09/25/2017 07:56:46 Benign prostatic hyperplasia with outflow obstruction 714000489 N40.1 [id number] J[facility]IE [facility] [address] [place] [address] 02/18/2018 09:15:40 02/18/2018 14:49:16 Bacterial conjunctivitis 240919410 H10.9 concern for severity, use tobramycin gtt as written every 1 hr until feels better then every 4 hrs. call his eye MD tomorrow for recheck given steroid PO for bronchitis may help this as well as doxycyclin e for skin structure as well as his bronchitis . Acute bronchitis 7414258 2 J20.9 Take all medication s as prescribed .Increase fluids and rest;warm salt water gargles, throat lozenges/s pray may benefit;us e of cool mist vaporizer or humidifier encouraged ;Vicks menthol rub may improve nasal stuffiness ;Please return if no improvemen t over several days or if any worsening/ concerns. [id number] ASHTYN ZAMAN MD [facility] [address],[place] [address] 04/12/2018 13:38:34 04/23/2018 10:40:40 Prostate specific antigen above reference range 602856595 R97.20 [id number] ASHTYN ZAMAN MD [facility] [address],[place] [address] 08/23/2018 14:14:37 09/03/2018 08:27:19 Benign prostatic hyperplasia with outflow obstruction 717874121 N40.1 [id number] ASHTYN ZAMAN MD [facility] [address],[place] [address] 02/28/2019 13:26:33 02/28/2019 14:18:01 Benign prostatic hyperplasia with outflow obstruction 772837199 N40.1 Prostate s pecific antigen above reference range 719240411 R97.20 [id number] ASHTYN ZAMAN MD [facility] [address] [place] [address] [place] [address] 8 09/19/2019 13:27:50 09/20/2019 08:20:50 Prostate specific antigen above reference range 066105414 R97.20 [id number] ASHTYN ZAMAN MD [facility] [address] [place] [address] 8 03/19/2020 14:10:49 03/24/2020 14:57:46 Benign prostatic hyperplasia with outflow obstruction 946814062 N40.1 Prostate s pecific antigen above reference range 772605181 R97.20 Family his tory of malignant neoplasm of prostate 720824078 Z80.42 [id number] ASHTYN ZAMAN MD [facility] [address],[place] [address] 8 09/03/2020 14:25:07 09/04/2020 14:34:40 Prostate specific antigen above reference range 250974872 R97.20 Benign pro static hyperplasia with outflow obstruction 753977393 N40.1 [id number] ASHTYN ZAMAN MD [facility] [address],[place] [address] 8 01/26/2023 15:18:46 01/26/2023 16:33:04 Prostate specific antigen above reference range 194930314 R97.20 Benign pro static hyperplasia with outflow obstruction 002312725 N40.1 Screening for malignant neoplasm of prostate 496968497 Z12.5 [id number] ASHTYN ZAMAN MD [facility] [address],[place] [address] 8 08/10/2023 14:23:25 08/10/2023 16:36:11 Benign prostatic hyperplasia with outflow obstruction 713345682 N40.1 Nocturia 385545052 R35.1 [id number] ASHTYN ZAMAN MD [facility] [address],[place] [address] 8 01/18/2024 16:07:40 01/30/2024 04:38:12 Benign prostatic hyperplasia with outflow obstruction 879319807 N40.1 Nocturia 865144093 R35.1 [id number] ASHTYN ZAMAN MD [facility] [address],[place] [address] 8 07/18/2024 13:34:00 07/18/2024 16:02:16 Benign prostatic hyperplasia with outflow obstruction 096608979 N13.8 N40.1 - Continue tamsulosin . - Monitor symptoms and effects. Prostate s pecific antigen above reference range 945830003 R97.20 - Monitor PSA levels. - Schedule [...] Guarantor Name 02/27/2017 1 *SELF PAY* Wi mariajuli Dee Dee Luke 07/18/2024 1 [place] [id number] 1 Manish Luke [id number] Manish Luke 07/22/2024 1 [place] [employer] OF [facility] MEDIBLUE ACCESS (MEDICARE REPLACEMENT REGIONAL PPO) [id number] Manish Luke [id number] Manish Luke 07/18/2024 GENERIC INSURANCE - MOVED-HOLD Manish Luke 07/18/2024 1 [employer] (MEDICARE REPLACEMENT/AD VANTAGE - PPO) Manish Luke [id number] Manish Luke Notes Date Note Type Note [...] 3.6. PSA: 02/2020 - 3.6 09/2019 - 4.28 08/2018 - 3.2 ASHTYN ZAMAN MD [address] [place] [address], [phone], [facility] 09/03/2020 15:54:09 01/26/2023 text/html 67-year-old male in the office for follow-up evaluation of raised PSA and family history of prostate carcinoma. Occasional hesitancy. Occasional urgency. Daytime frequency 8 times. Nocturia 0-1 times. No gross hematuria. No dysuria. PSA: August 2020-3.February - 3.19 September 2019 - 4.09 September 2018 - 3.2 ASHTYN ZAMAN MD [address] [place] [address], [phone], [facility] 01/29/2023 10:54:51 08/10/2023 text/html 67-year-old [...] September 2018 - 3.2 ASHTYN ZAMAN MD [address] [place] [address], [phone] [place] [address] 08/13/2023 11:12:27 01/18/2024 text/html 68-year-old male in the office for follow-up evaluation of raised PSA and family history of prostate carcinoma. No gross hematuria. No dysuria. He is taking tamsulosin. No hesitancy or intermittency. He takes tamsulosin. PSA: September 2023- 4.10 February 2023-4.10 September 2020-3.February - 3.19 September 2019 - 4.09 September 2018 - 3.2 ASHTYN ZAMAN MD [address] [place] [address], [phone], [facility] 01/29/2024 10:56:39 07/18/2024 text/html The patient is a 68-year-old [...] August 2020 - 3.71 ASHTYN ZAMAN MD [address] [place] [address], [phone], [facility] 07/21/2024 10:28:08
--- OUTSIDE RECORDS SUMMARY | 2024-09-03 08:13 | XMS_ITS | Clinical Summary ---
Author Organization [facility] Address [address] [place] [address] Care Team Providers Care [employer] Name Role Phone Owen Kim MD Primary Care Provider [phone] Immunizations Immunization Administration Dates Next Due Pneumococcal [...] of Treatment Not on file Care Teams [employer] Relationship Specialty Start Date End Date Owen Kim MD [address] [place] [address] [place] [address] PCP - General 06/26/20
--- NOTE | 2024-09-03 09:00 | CA_ITS ---
FINAL REPORT CLINICAL HISTORY: HTN, CAD-CABG FINDINGS: RIGHT CAROTID: CCA PSV -81 cm/sec ICA PSV -100 cm/sec ICA/CCA PSV ratio -1.3. Comments: Mild plaque disease is noted. LEFTCAROTID: CCA PSV -79. cm/sec ICA PSV -91. cm/sec ICA/CCA PSV ratio -1.3. Comments: Mild plaque disease is noted. Antegrade flow is seen within the vertebral arteries. IMPRESSION: Carotid stenosis classified less than 50% Reviewed, Interpreted and Dictated by Gabo Hutchison MD Transcribed by Pinky Zacarias Authenticated and [facility]
== END 2024-09-03 23:59 | disposition home or self-care (01) ==
LOC: RT 07:58
PROVIDERS: PCP Family Medicine; Visit Provider Physician Assistant
DX: I65.23 Occlusion and stenosis of bilateral carotid arteries (principal); I10 Essential (primary) hypertension; I25.10 Atherosclerotic heart disease of native coronary artery without angina pectoris; Z95.1 Presence of aortocoronary bypass graft
CPT/HCPCS: 93880; 93976